=== PATIENT | female | born 1980 | race Caucasian/White ===

== ENCOUNTER 2023-11-29 15:27 | Emergency (ER) | payer MEDICAID, SELFPAY ==
--- NOTE | ~2023-11-29 | XR_ITS ---
EXAMINATION: XR CHEST CLINICAL INFORMATION: Shortness of breath COMPARISON: None available. TECHNIQUE: Frontal view of the chest was obtained. FINDINGS: Given lordotic technique lungs are considered grossly clear. Heart size normal with normal caliber pulmonary vessels. XR/XR chest 1V IMPRESSION: No active disease.
[2023-11-29 15:29] VITALS: BP 132/105; PULSE 97; RESP 20; TEMP 36.4; O2SAT 97; BMI 45.9
--- NOTE | 2023-11-29 15:30 | ED_ITS ---
HPI - SOB/Dyspnea General Chief Complaint: Abdominal Pain Stated Complaint: Difficulty breathing Time Seen by Provider: 11/29/23 16:45 Source: patient Mode of arrival: ambulatory Limitations: no limitations History of Present Illness ED Provider: Dr. Kristie Franco HPI Narrative: Patient comes to the emergency room complaining of GERD for 7 months. Patient states that she is taking famotidine but it is not helping. Patient states the her providers [place] discontinued her omeprazole because it was interacting with her other medications. Patient denies any chest pain. Patient states that she was a bit short of breath when she came in but now it has resolved. Patient denies any significant abdominal pain. Related Data Previous Rx's ?Medication ?Instructions ?Recorded sucralfate 1 gram tablet (Carafate) 1 g PO BID #60 tabs 11/29/23 Allergies Allergy/AdvReac Type Severity Reaction Status Date / Time aspirin [ASA] Allergy Hives Verified 11/29/23 15:34 Penicillins Allergy Dizziness Verified 11/29/23 15:34 Review of Systems 2 Review of Systems: Constitutional : No Weight loss, No Fever, No Chills, No Night Sweats, No Fatigue, No Malaise ENT/Mouth : No Hearing loss, No Ear Pain, No Nasal Congestion, No Sinus Pain, No Hoarseness, No sore throat, No Rhinorrhea, No Swallowing Difficulty Eyes: No Eye Pain, No Swelling, No Redness, No Foreign Body, No Discharge, No Vision Changes Cardiovascular : No Chest Pain, No SOB, No Dyspnea on Exertion, No Orthopnea, No Edema, No Palpitations Respiratory : No Cough, No Sputum, No Wheezing, No Smoke Exposure, No Dyspnea Gastrointestinal : Complaining of GERD, No Nausea, No Vomiting, No Diarrhea, No Constipation, No abdominal Pain, No Hematochezia, No Melena Genitourinary : no irregular bleeding, No Dysuria, No Urinary Frequency, No Hematuria, No Urinary Incontinence, No Urgency, No Flank Pain, No Urinary Flow Changes, No Hesitancy Musculoskeletal : No joint pain, No Myalgias, No Joint Swelling Skin : No Skin Lesions, No rash Neuro : No Weakness, No Numbness, No Paresthesias, No Loss of Consciousness, No Dizziness, No Headache Psych : No Anxiety/Panic, No Depression, No SI/HI/AH/VH, No Social Issues, Heme/Lymph: No Bruising, No Bleeding,No Lymphadenopathy Endocrine : No Polyuria, No Polydipsia, No Temperature Intolerance [facility] Past Medical History Medical History Asthma CVA (cerebral vascular accident) GERD (gastroesophageal reflux disease) Social History Social History Smoked in Last 30 Days: Yes Use of substances other than those prescribed or required for medical reasons: No Advance Directives: No Advance Directives Information Provided: No Do you have a plan to hurt others: No Plan Patient : No Physical Exam 2 Vital Signs: Vital Signs: Last Vital Signs Temp 98.4 F 11/29/23 16:17 Pulse 84 11/29/23 16:17 Resp 18 11/29/23 16:17 BP 135/71 11/29/23 16:17 Pulse Ox 96 11/29/23 16:17 O2 Del Method Room Air 11/29/23 16:17 BMI result Body Mass Index 45.9 Const: Other: Appearance: Alert. Oriented X3. No acute distress. Eyes: Pupils equal, round and reactive to light. ENT: Pharynx normal. Neck: Normal inspection. Neck supple. No lymph nodes noted. No crepitus CVS: Normal heart rate and rhythm. Pulses normal. Normal S1 and S2 Respiratory: No respiratory distress. Breath sounds normal. No Wheezing. No rales Abdomen: Soft and nontender. No rigidity. No distention. Skin: Skin warm and dry. Normal skin color. Normal skin turgor. Extremities: No lower extremity edema. No Lacerations. No Rash Neuro: Oriented X 3. No motor deficit. No sensory deficit. Moving all extremities. No slurred speech. CN 2 through 12 grossly intact Psych: calm, cooperative, normal affect Course Course Course Narrative: This is a Rapid Medical Exam performed in triage by Caroline Olvera PA-C. Full HPI, ROS and PE to be performed by primary ED provider. 43 year-old F w/ PMHx CVA on Plavix, Anxiety, GERD, Asthma, sleep apnea, presenting to the ED c/o epigastric abdominal pain, nausea, vomiting, decreased PO intake x7 mos worsening over the past few weeks. Takes Famotidine w/o relief. Also reports SOB. PE: Lungs CTA, Abdomen soft +epigastric ttp, no rebound or guarding Plan: labs, UA Medical Decision Making Medical Decision Making [facility] Narrative: -my interpretation of EKG: Normal sinus rhythm, heart rate 86, no ST segment depression or elevation, no T-wave inversion, QTC 512, no previous EKGs for comparison. -my interpretation of labs: Hematology within normal limits, chemistry, magnesium 2.0, AST and ALT slightly elevated, troponin negative, lipase normal. Serology negative for influenza RSV and COVID -my interpretation of chest x-ray, no abnormality, no infiltrates or free air under the diaphragm Patient's physical exam reassuring -discussed with the patient that overall we can change her medications but she will need a gastroenterology follow-up for chronic GERD and likely will need an upper endoscopy. -patient agrees with plan Differential Diagnosis Differential Diagnoses: The differential diagnosis associated with the presentation includes (GERD, ACS, gastritis, peptic ulcer disease) Lab Data [facility] Lab Attestation statement: I reviewed the patient's lab results. 11/29/23 15:54 11/29/23 15:53 Labs: Lab Results 11/29/23 11/29/23 Range/Units 15:53 15:54 WBC 8.7 (4.8-10.8) X10*3/uL RBC 4.50 (4.20-5.50) X10*6/uL Hgb 13.7 (12.0-16.0) g/dl Hct 41.4 (37.0-47.0) % MCV 92.0 (80.0-98.0) fL MCH 30.4 (27.0-33.0) pg MCHC 33.1 (31.0-35.0) g/dl RDW 12.5 (11.0-16.0) % Plt Count 203 (160-400) X10*3/uL MPV 9.4 (9.4-12.3) fL Immature Gran % (Auto) 0.6 H (0.0-0.4) % Neut % (Auto) 58.9 (45-73) % Lymph % (Auto) 32.6 (20-40) % Ware % (Auto) 6.4 (2-11) % Eos % (Auto) 1.0 (0-4) % Baso % (Auto) 0.5 (0-2) % Lymph # (Auto) 2.8 (1.2-4.9) X10*3/uL Ware # (Auto) 0.6 (0.1-1.2) X10*3/uL Eos # (Auto) 0.1 (0.0-0.4) X10*3/uL Baso # (Auto) 0.0 (0.0-0.2) X10*3/uL Abs Immat Gran (auto) 0.05 H (0.00-0.03) X10*3/uL Absolute Neuts (auto) 5.1 (2.0-8.3) x10*3/uL Absolute Nucleated RBC 0.000 (0.0-0.012) X10*3/uL Nucleated RBC % (auto) 0.0 (0.0-0.2) /100WBC Sodium 137 (135-145) mmol/L Potassium 4.6 (3.3-5.1) mmol/L Chloride 106 (96-108) mmol/L Carbon Dioxide 17 L (22-29) mmol/L Anion Gap 19 (12-20) BUN 5 L (9-16) mg/dL Creatinine 0.82 (0.5-1.4) mg/dL Estim Creat Clear Calc 100.6 Estimated GFR > 60 Random Glucose 93 (60-115) mg/dL Calcium 9.6 (8.4-10.2) mg/dL Magnesium 2.0 (1.6-2.6) mg/dL Total Bilirubin 0.4 (0.0-1.0) mg/dL Direct Bilirubin 0.1 (0.0-0.5) mg/dL AST 68 H (5-31) U/L ALT 65 H (0-31) U/L Alkaline Phosphatase 98 (39-117) U/L Troponin I High Sens < 2.7 (<3.5-17.0) ng/L Total Protein 8.3 H (6.5-8.0) g/dL Albumin 3.8 (3.5-5.0) g/dL Lipase 16 (8-78) U/L Influenza Type A (PCR) NEGATIVE (Negative) Influenza Type B (PCR) NEGATIVE (Negative) RSV RNA Qual (PCR) NEGATIVE (Negative) SARS-CoV-2 RNA (RT-PCR) NEGATIVE (Negative) Independent Interpretation I performed an independent interpretation of an: EKG and Plain X-Ray Radiology Impression Discussion of test interpretation with radiology: I have reviewed the radiologist's reading. Radiologist Impression: Given lordotic technique lungs are considered grossly clear. Heart size normal with normal caliber pulmonary vessels. XR/XR chest 1V IMPRESSION: No active disease. Discharge Plan Discharge Clinical Impression: Chronic GERD Patient Disposition: Home, Self-Care Instructions: Diet for Stomach Ulcers and Gastritis (ED), Gastroesophageal Reflux Disease (ED) Additional Instructions: Please follow-up with your primary care physician tomorrow. If you have any worsening or new symptoms, please return to the emergency room or call 911 Prescriptions: New sucralfate [Carafate] 1 gram tablet 1 g PO BID Qty: 60 1RF Referrals: Sarah Zuniga MD [Physician] - 12/06/23 Print Language: Puerto Rican
--- NOTE | 2023-11-29 15:36 | ECG_ITS ---
Test Reason : abd pain Blood Pressure : / mmHG Vent. Rate : 086 BPM Atrial Rate : 086 BPM P-R Int : 154 ms QRS Dur : 082 ms QT Int : 428 ms P-R-T Axes : 057 052 030 degrees QTc Int : 512 ms Normal sinus rhythm Nonspecific T wave abnormality Prolonged QT Abnormal ECG No previous ECGs available Referred By: Craoline Olvera Electronically Signed By:LISSY DAVIDSON
[2023-11-29 15:57] LABS: MANUAL DIFF FLAG NO
[2023-11-29 16:00] LABS: Basophils Percent Auto 0.5 % (0-2); Eosinophils Absolute Auto 0.1 X10*3/uL (0.0-0.4); Hematocrit 41.4 % (37.0-47.0); Hemoglobin 13.7 g/dl (12.0-16.0); Imm Gran Abs Auto 0.05 X10*3/uL (0.00-0.03); Imm Gran Pct Auto 0.6 % (0.0-0.4); Lymphocytes Absolute Auto 2.8 X10*3/uL (1.2-4.9); Lymphocytes Percent Auto 32.6 % (20-40); Mean Corpuscular HGB Conc 33.1 g/dl (31.0-35.0); Mean Corpuscular Hemoglobin 30.4 pg (27.0-33.0); Mean Platelet Volume 9.4 fL (9.4-12.3); Monocytes Absolute Auto 0.6 X10*3/uL (0.1-1.2); Monocytes Percent Auto 6.4 % (2-11); Neutrophils Absolute Auto 5.1 x10*3/uL (2.0-8.3); Neutrophils Percent Auto 58.9 % (45-73); Platelet Count 203 X10*3/uL (160-400); Red Cell Distribution Width 12.5 % (11.0-16.0); White Blood Count 8.7 X10*3/uL (4.8-10.8)
[2023-11-29 16:17] VITALS: BP 135/71; PULSE 84; RESP 18; TEMP 36.9; O2SAT 96
[2023-11-29 16:17] LABS: Alanine Aminotransferase 65 U/L (0-31); Albumin Level 3.8 g/dL (3.5-5.0); Alkaline Phosphatase 98 U/L (39-117); Anion Gap 19 (12-20); Aspartate Amino Transferase 68 U/L (5-31); Bilirubin Direct 0.1 mg/dL (0.0-0.5); Bilirubin Total 0.4 mg/dL (0.0-1.0); Blood Urea Nitrogen 5 mg/dL (9-16); Calcium 9.6 mg/dL (8.4-10.2); Carbon Dioxide 17 mmol/L (22-29); Chloride 106 mmol/L (96-108); Creatinine Clr Calc Pharmacy 100.6; Estimated Glomerular Filt Rate > 60; Glucose Random 93 mg/dL (60-115); Lipase 16 U/L (8-78); Potassium 4.6 mmol/L (3.3-5.1); Sodium 137 mmol/L (135-145); Total Protein 8.3 g/dL (6.5-8.0)
[2023-11-29 16:31] LABS: Troponin-I High Sensitivity < 2.7 ng/L (<3.5-17.0)
[2023-11-29 16:43] LABS: Influenza A PCR NEGATIVE (Negative); Influenza B PCR NEGATIVE (Negative); Resp Syncy Virus RNA Qual PCR NEGATIVE (Negative); SARS COV2 PCR INHOUSE NEGATIVE (Negative)
[2023-11-29 17:18] VITALS: BP 135/71; PULSE 84; RESP 18; TEMP 36.9; O2SAT 96
== END 2023-11-29 17:19 | disposition home or self-care (01) ==
PROVIDERS: Physician Assistant; Emergency Provider Emergency Medicine
DX: K21.9 Gastro-esophageal reflux disease without esophagitis (principal); Z03.818 Encounter for observation for suspected exposure to other biological agents ruled out; R06.02 Shortness of breath; J45.909 Unspecified asthma, uncomplicated; Z86.73 Personal history of transient ischemic attack (TIA), and cerebral infarction without residual deficits; Z79.899 Other long term (current) drug therapy
CPT/HCPCS: 0241U; 36415; 71045; 80048; 80076; 83690; 83735; 84484; 85025; 93005; 99284

== ENCOUNTER → 2023-11-29 15:36 | Outpatient (BNV) | payer MEDICAID, SELFPAY | PROVIDERS: Emergency Provider Emergency Medicine; Visit Provider Internal Medicine | DX: R94.31 Abnormal electrocardiogram [ECG] [EKG] (principal) | CPT/HCPCS: 93010 ==

== ENCOUNTER 2024-05-25 18:38 | Inpatient (IN) | payer OTHER, SELFPAY ==
--- NOTE | ~2024-05-25 | CT_ITS ---
EXAMINATION: CT CHEST WITHOUT IV CONTRAST INDICATION: hypoxia COMPARISON: Comparison is made with the prior examination dated 05/26/2024. TECHNIQUE: Helical CT scan of the chest was performed without intravenous contrast. Coronal and sagittal reformatted images were generated and reviewed. This CT exam was performed with one or more of the following dose reduction techniques: automated exposure control, adjustment of the mA and/or kV according to patient size, use of iterative reconstruction technique. DLP: 231 mGy-cm CHEST: THYROID: The thyroid is unremarkable. LUNGS:There has been marked improvement in previously seen nodular airspace opacities in both lungs with near complete clearing in the right middle and left lower lobes. A few residual opacities remain in the right lower lobe. There is linear scarring in the right upper and middle lobes without change. MEDIASTINUM: Again seen is an 11 mm right paratracheal lymph node. RICKY: Evaluation of the hilar regions is limited by lack of intravenous contrast material. CARDIOVASCULATURE: The heart is normal in size. There is no pericardial effusion. The thoracic aorta is normal in caliber. DEGREE OF CORONARY CALCIFICATION: none PLEURA: There is no pleural effusion. No pneumothorax. MAIN AIRWAYS: There is mild bronchial wall thickening which has improved since the prior study. AXILLA: There is no axillary lymphadenopathy. BONES AND SOFT TISSUES: There is degenerative disc disease of the spine. UPPER ABDOMEN: The visualized portions of the liver, spleen, and adrenals have an unremarkable appearance. CT/CT chest wo IV con IMPRESSION: Marked improvement in previously seen bilateral nodular airspace opacities, with scattered residual opacities remaining in the right lower lobe. Improvement in previously seen bronchial wall thickening. Electronically signed by: Slim Manzanares MD 05/29/2024 08:53 [facility]
--- NOTE | ~2024-05-25 | CT_ITS ---
CLINICAL HISTORY: ? vascular disease CT HEAD WITHOUT CONTRAST. CT ANGIOGRAPHY HEAD AND NECK WITH CONTRAST. 3D POSTPROCESSING. Comparison: MR - MR HEAD/BRAIN WO CON - 05/26/24 09:[address]/SR - CT HEAD/BRAIN WO IV CON - 05/25/24 23:21 EST Findings: HEAD CT: No intra-axial mass, midline shift, hydrocephalus, or acute hemorrhage. No significant atrophy-like change. Mild white matter disease. The visualized paranasal sinuses and mastoid air cells are normal. The orbits are within normal limits. No skull fracture. HEAD AND NECK CTA: Aortic arch and cervical great vessels are patent. Intracranial arteries are patent. No aneurysm, dissection, or occlusion. There is persistent origin of the right TAXI CAB DRIVER, a normal variant. Hypoplastic A1 segment of the right KEESHA, a normal variant. No abnormal intracranial enhancement. Grossly patent dural venous sinuses. The visualized thyroid gland is unremarkable. No cervical mass or fluid collection. Lung apices clear. No acute fracture. IMPRESSION: 1. No acute intracranial process or enhancing intracranial mass lesion. 2. Patent CTA head and neck. No large vessel occlusion or flow-limiting stenosis. This document has been electronically signed by: Zeynep Hastings DO on 05/27/2024 13:27:06
--- NOTE | ~2024-05-25 | CT_ITS ---
CLINICAL HISTORY: ams CT head without contrast Comparison: None Findings: No intra-axial mass, midline shift, hydrocephalus, or acute hemorrhage. There is diminished density in the bilateral occipital cortex and white matter. There is no sinus or mastoid fluid. The orbits are within normal limits. No skull fracture. There is evidence of right-sided otitis with fluid seen adjacent to the ossicles. IMPRESSION: There is diminished density in the bilateral occipital cortex and white matter. consider posterior reversible encephalopathy syndrome. Please correlate with MRI. This document has been electronically signed by: Bruno Anderson MD on 05/26/2024 00:10:23
--- NOTE | ~2024-05-25 | XR_ITS ---
EXAMINATION: XR CHEST 1 VIEW HISTORY: re-evaluate PNA COMPARISON: Comparison is made with the prior examination dated 11/29/2023. Correlation is also made with a chest CT dated 05/26/2024. FINDINGS: A single AP portable view of the chest performed at 10:15 AM is submitted. There are low lung volumes. Examination is also limited by lordotic positioning. There is pulmonary vascular prominence which may be technical in nature. No focal airspace opacities are identified. However, please note that the tiny nodular airspace opacities noted on CT are likely below the resolution of plain film. The heart is normal in size. The bones are intact. XR/XR chest 1V IMPRESSION: No acute cardiopulmonary abnormality. Please note that the tiny nodular airspace opacities noted on CT are likely below the resolution of plain film. Electronically signed by: Slim Manzanares MD 05/28/2024 10:34 AM [facility]
--- NOTE | ~2024-05-25 | MR_ITS ---
CLINICAL HISTORY: AMS,?PRES MR Brain without gadolinium Comparison: None Findings: There are no changes to suggest posterior reversible encephalopathy syndrome (PRES). Findings noted on CT are presumably artifactual as there is no occipital lobe pathology noted. There are mostly right-sided periventricular and subcortical white matter hyperintensities likely the result of microvascular ischemia. No midline shift. No hydrocephalus. Vascular flow voids are intact. Orbital contents are unremarkable. The sinuses and mastoid air cells are clear. No focal bone lesion. There are no classic findings of hyperammonemia. IMPRESSION: 1. No acute abnormalities are noted and no changes suggestive of PRES or hyperammonemic encephalopathy. The findings on head CT were presumably artifactual. 2. There are mostly right-sided periventricular and subcortical white matter hyperintensities likely the result of microvascular ischemia. This document has been electronically signed by: Bruno Anderson MD on 05/26/2024 10:25:41
--- NOTE | ~2024-05-25 | CT_ITS ---
CLINICAL HISTORY: re-eval from cxr; bronchiolitis CT CHEST WITHOUT CONTRAST Comparison: CR/SR - XR CHEST 1V - 11/29/23 15:58 EDT Findings: The heart size is normal. The thoracic aorta is normal caliber. Several nonenlarged and likely reactive mediastinal lymph nodes. Numerous small nodular airspace opacities are seen throughout the right lung ranging in size from 4-13 mm. There are several similar findings in the left lower lobe. There is mild bronchial wall thickening. Trachea and major bronchi are patent. No pleural effusion or pneumothorax. Tiny calcified granuloma in the left upper lobe. The visualized upper abdomen is unremarkable. The bones are intact. IMPRESSION: 1. Multiple small nodular airspace opacities throughout the right lung and in the left lower lobe suggestive of inflammatory or infectious process. 2. Mild central bronchial wall thickening. 3. No segmental or lobar pneumonia. This document has been electronically signed by: Zeynep Hastings DO on 05/26/2024 13:38:14
--- NOTE | ~2024-05-25 | CT_ITS ---
CLINICAL HISTORY: Elevated ammonia level, hepatitis-C CT abdomen and pelvis with contrast Comparison: CT - CT ABDOMEN PELVIS W IV CON - 05/25/24 23:27 EST Findings: Multiple tree-in-bud nodules are seen in the right lower lobe in addition to several larger nodules with a halo. The gallbladder and solid organs are within normal limits. No renal stones. No bowel obstruction, pneumoperitoneum, or pneumatosis. Pelvic contents unremarkable. Normal appendix. The bones are intact. IMPRESSION: 1. No acute intra-abdominal process. 2. Tree-in-bud opacities in the right lower lobe compatible with bronchiolitis. Several larger nodules with a halo sign are present also likely infectious/inflammatory. The sign was classically described for aspergillosis but can occur due to other infectious etiologies This document has been electronically signed by: Bruno Anderson MD on 05/26/2024 00:36:57
--- NOTE | 2024-05-25 18:56 | ECG_ITS ---
Test Reason : WEAKNESS Blood Pressure : */* mmHG Vent. Rate : 74 BPM Atrial Rate : 74 BPM P-R Int : 170 ms QRS Dur : 82 ms QT Int : 384 ms P-R-T Axes : 41 61 38 degrees QTcB Int : 426 ms Normal sinus rhythm Nonspecific T wave abnormality Abnormal ECG When compared with ECG of 29-Nov-2023 15:36, Nonspecific T wave abnormality no longer evident in Lateral leads QT has shortened Referred By: Anne Arellano Electronically Signed By: Garry Padilla
[2024-05-25 19:06] VITALS: BP 142/82; PULSE 78; O2SAT 92
--- NOTE | 2024-05-25 19:18 | ED.GENADULT ---
HPI - General Adult General Chief complaint: Altered Mental Status Stated complaint: increased lethargy, edema hands & Legs, face droop Time Seen by Provider: 05/25/24 19:13 Source: patient Mode of arrival: EMS Limitations: no limitations History of Present Illness ED Provider: HPI narrative: Patient's history of major depression disorder history of substance came from inpatient psych facility for increased lethargy patient denied using of any drugs on methadone just feels sleepy all the time and shaky no change in medication patient does have history hepatitis-C not treated, no fever no chills no urinary symptoms no cough 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 Related Data Previous Rx's ?Medication ?Instructions ?Recorded sucralfate 1 gram tablet (Carafate) 1 g PO BID #60 tabs 11/29/23 Allergies Allergy/AdvReac Type Severity Reaction Status Date / Time aspirin [ASA] Allergy Intermediate Hives Verified 05/25/24 22:28 Penicillins Allergy Dizziness Verified 11/29/23 15:34 Review of Systems Review of Systems: Yes all other systems are reviewed and are negative [facility] Past Medical History Medical History Asthma CVA (cerebral vascular accident) GERD (gastroesophageal reflux disease) Social History Social History Advance Directives: No Advance Directives Information Provided: No Do you have a plan to hurt others: No Plan Physical Exam ED Vital Signs: Vital Signs - 24 hr 05/25/24 19:51 05/25/24 22:00 05/26/24 00:00 Temperature 97.9 F 97.6 F 97.6 F Pulse Rate 80 82 88 Respiratory Rate 18 15 Blood Pressure 150/78 H 117/95 H 121/87 Pulse Oximetry 92 95 94 Oxygen Delivery Method Nasal Cannula Nasal Cannula Nasal Cannula Oxygen Flow Rate 2 3 2 BMI result Body Mass Index 45.3 Appearance: Alert. Oriented X3. No acute distress. Sleepy arousable Eyes: Legally blind right eye ENT: Pharynx normal. Oral Mucosa moist Neck: Normal inspection. Neck supple. CVS: Normal heart rate and rhythm. Pulses normal. Respiratory: No respiratory distress. Equal air entry bilateral, no wheezing/rales/rhonchi Abdomen: Soft and nontender. Bowel sounds are present, no mass palpable, no CVA tenderness Skin: Skin warm and dry. Normal skin color. Normal skin turgor. Extremities: 2+ lower extremity edema. No calf tenderness hepatic flaps++ Neuro: Oriented X 3. No motor deficit. No sensory deficit.No cerebellar signs , cranial nerves II-XII intact Medications Administered Discontinued Medications Generic Name Dose Route Start Last Admin Trade Name Freq PRN Reason Stop Dose Admin Sodium Chloride 1,000 mls @ 999 mls/hr 05/25/24 21:16 05/25/24 23:54 Ns IV 05/25/24 22:16 999 mls/hr .Q1H1M ONE Administration Iohexol 100 ml 05/25/24 23:42 05/25/24 23:42 Iohexol 350 Mg/Ml 100 Ml Infus..Btl IV 05/25/24 23:43 100 ml ONCE ONE Administration Lactulose 30 gm 05/25/24 22:43 05/25/24 23:53 Lactulose 20 Gm/30 Ml Solution PO 05/25/24 22:44 30 gm ONCE ONE Administration Medical Decision Making Medical Decision Making [facility] Narrative: Patient with increased lethargy somnolence workup showed elevated ammonia level likely from methadone use also patient has untreated hepatitis-C liver enzymes are slightly elevated will admit patient for hepatic encephalopathy CT scan showed diminished density in bilateral occipital cortex>>> posterior reversible encephalopathy syndrome also showed tree-in-bud opacity in right lower lobe patient also does have cough for last 1 week lactic acid level is normal were started IV antibiotics admit Differential Diagnosis Differential Diagnoses: The differential diagnosis associated with the presentation includes Admission/Observation Consideration of admission/observation: Escalation of care including admission/observation considered Metabolic encephalopathy/hyperammonemia/posterior reversible encephalopathy syndrome/substance abuse Consult Healthcare Provider Management of the patient was discussed with: Hospitalist Lab Data [facility] Lab Attestation statement: I reviewed the patient's lab results. 05/25/24 21:15 05/25/24 19:58 Labs: Lab Results 05/25/24 05/25/24 05/25/24 Range/Units 19:58 21:15 21:21 WBC 12.7 H (4.8-10.8) X10*3/uL RBC 3.98 L (4.20-5.50) X10*6/uL Hgb 11.8 L (12.0-16.0) g/dl Hct 36.9 L (37.0-47.0) % MCV 92.7 (80.0-98.0) fL MCH 29.6 (27.0-33.0) pg MCHC 32.0 (31.0-35.0) g/dl RDW 13.6 (11.0-16.0) % Plt Count 162 (160-400) X10*3/uL MPV 9.6 (9.4-12.3) fL Immature Gran % (Auto) 0.3 (0.0-0.4) % Neut % (Auto) 79.2 H (45-73) % Lymph % (Auto) 15.5 L (20-40) % Sutter % (Auto) 4.3 (2-11) % Eos % (Auto) 0.5 (0-4) % Baso % (Auto) 0.2 (0-2) % Lymph # (Auto) 2.0 (1.2-4.9) X10*3/uL Sutter # (Auto) 0.6 (0.1-1.2) X10*3/uL Eos # (Auto) 0.1 (0.0-0.4) X10*3/uL Baso # (Auto) 0.0 (0.0-0.2) X10*3/uL Abs Immat Gran (auto) 0.04 H (0.00-0.03) X10*3/uL Absolute Neuts (auto) 10.0 H (2.0-8.3) x10*3/uL Absolute Nucleated RBC 0.000 (0.0-0.012) X10*3/uL Nucleated RBC % (auto) 0.0 (0.0-0.2) /100WBC VBG pH 7.37 (7.32-7.43) VBG pCO2 59 mmHg VBG pO2 63 mmHg VBG HCO3 34 H (22-26) mmol/L VBG O2 Saturation 92.0 % VBG Base Excess 7.6 mmol/L Sodium 141 (135-145) mmol/L Potassium 4.7 (3.3-5.1) mmol/L Chloride 106 (96-108) mmol/L Carbon Dioxide 30 H (22-29) mmol/L Anion Gap 10 L (12-20) BUN 9 (9-16) mg/dL Creatinine 0.71 (0.5-1.4) mg/dL Estim Creat Clear Calc TNP Estimated GFR > 60 Random Glucose 82 (60-115) mg/dL Lactic Acid (0.5-2.0) mmol/L Calcium 8.7 D (8.4-10.2) mg/dL Magnesium 2.1 (1.6-2.6) mg/dL Total Bilirubin 0.5 (0.0-1.0) mg/dL AST 49 H (5-31) U/L ALT 63 H (0-31) U/L Alkaline Phosphatase 102 (39-117) U/L Ammonia 83 H (13-55) umol/L B-Natriuretic Peptide 15 (<100) pg/mL Total Protein 8.1 H (6.5-8.0) g/dL Albumin 3.8 (3.5-5.0) g/dL TSH 1.08 (0.32-4.0) uIU/mL Urine Color Urine Appearance Urine pH (5.0-9.0) Ur Specific [place] (1.005-1.025) Urine Protein (Neg-Trace) mg/dL Urine Glucose (UA) (Negative) mg/dL Urine Ketones (Negative) mg/dL Urine Blood (Negative) Urine Nitrite (Negative) Ur Leukocyte Esterase (Negative) Urine Test (NEGATIVE) Urine Opiates Screen (Not Detect) Ur Buprenorphine Scrn (Not Detect) ng/mL Ur Oxycodone Screen (Not Detect) ng/mL Urine Methadone Screen (Not Detect) ng/mL Urine Fentanyl Screen (Not Detect) Ur Barbiturates Screen (Not Detect) Ur Phencyclidine Scrn (Not Detect) Ur Amphetamines Screen (Not Detect) U Benzodiazepines Scrn (Not Detect) Urine Cocaine Screen (Not Detect) U Marijuana (THC) Screen (Not Detect) Influenza Type A (PCR) NEGATIVE (Negative) Influenza Type B (PCR) NEGATIVE (Negative) RSV RNA Qual (PCR) NEGATIVE (Negative) SARS-CoV-2 RNA (RT-PCR) NEGATIVE (Negative) 05/25/24 Range/Units 21:35 WBC (4.8-10.8) X10*3/uL RBC (4.20-5.50) X10*6/uL Hgb (12.0-16.0) g/dl Hct (37.0-47.0) % MCV (80.0-98.0) fL MCH (27.0-33.0) pg MCHC (31.0-35.0) g/dl RDW (11.0-16.0) % Plt Count (160-400) X10*3/uL MPV (9.4-12.3) fL Immature Gran % (Auto) (0.0-0.4) % Neut % (Auto) (45-73) % Lymph % (Auto) (20-40) % Sutter % (Auto) (2-11) % Eos % (Auto) (0-4) % Baso % (Auto) (0-2) % Lymph # (Auto) (1.2-4.9) X10*3/uL Sutter # (Auto) (0.1-1.2) X10*3/uL Eos # (Auto) (0.0-0.4) X10*3/uL Baso # (Auto) (0.0-0.2) X10*3/uL Abs Immat Gran (auto) (0.00-0.03) X10*3/uL Absolute Neuts (auto) (2.0-8.3) x10*3/uL Absolute Nucleated RBC (0.0-0.012) X10*3/uL Nucleated RBC % (auto) (0.0-0.2) /100WBC VBG pH (7.32-7.43) VBG pCO2 mmHg VBG pO2 mmHg VBG HCO3 (22-26) mmol/L VBG O2 Saturation % VBG Base Excess mmol/L Sodium (135-145) mmol/L Potassium (3.3-5.1) mmol/L Chloride (96-108) mmol/L Carbon Dioxide (22-29) mmol/L Anion Gap (12-20) BUN (9-16) mg/dL Creatinine (0.5-1.4) mg/dL Estim Creat Clear Calc Estimated GFR Random Glucose (60-115) mg/dL Lactic Acid 0.9 (0.5-2.0) mmol/L Calcium (8.4-10.2) mg/dL Magnesium (1.6-2.6) mg/dL Total Bilirubin (0.0-1.0) mg/dL AST (5-31) U/L ALT (0-31) U/L Alkaline Phosphatase (39-117) U/L Ammonia (13-55) umol/L B-Natriuretic Peptide (<100) pg/mL Total Protein (6.5-8.0) g/dL Albumin (3.5-5.0) g/dL TSH (0.32-4.0) uIU/mL Urine Color Yellow Urine Appearance Clear Urine pH 7.0 (5.0-9.0) Ur Specific [place] 1.020 (1.005-1.025) Urine Protein Negative (Neg-Trace) mg/dL Urine Glucose (UA) Negative (Negative) mg/dL Urine Ketones Trace (Negative) mg/dL Urine Blood Negative (Negative) Urine Nitrite Negative (Negative) Ur Leukocyte Esterase Negative (Negative) Urine Test NEGATIVE (NEGATIVE) Urine Opiates Screen Not Detected (Not Detect) Ur Buprenorphine Scrn Not Detected (Not Detect) ng/mL Ur Oxycodone Screen Not Detected (Not Detect) ng/mL Urine Methadone Screen Positive H (Not Detect) ng/mL Urine Fentanyl Screen Not Detected (Not Detect) Ur Barbiturates Screen Not Detected (Not Detect) Ur Phencyclidine Scrn Not Detected (Not Detect) Ur Amphetamines Screen Not Detected (Not Detect) U Benzodiazepines Scrn Not Detected (Not Detect) Urine Cocaine Screen Not Detected (Not Detect) U Marijuana (THC) Screen Not Detected (Not Detect) Influenza Type A (PCR) (Negative) Influenza Type B (PCR) (Negative) RSV RNA Qual (PCR) (Negative) SARS-CoV-2 RNA (RT-PCR) (Negative) Independent Interpretation I performed an independent interpretation of an: CT Scan Radiology Impression Discussion of test interpretation with radiology: I have reviewed the radiologist's reading. Radiologist Impression: CLINICAL HISTORY: ams CT head without contrast Comparison: None Findings: No intra-axial mass, midline shift, hydrocephalus, or acute hemorrhage. There is diminished density in the bilateral occipital cortex and white matter. There is no sinus or mastoid fluid. The orbits are within normal limits. No skull fracture. There is evidence of right-sided otitis with fluid seen adjacent to the ossicles. IMPRESSION: There is diminished density in the bilateral occipital cortex and white matter. consider posterior reversible encephalopathy syndrome. Please correlate with MRI. This document has been electronically signed by: Bruno Anderson MD on 05/26/2024 00:10:23 MPRESSION: 1. No acute intra-abdominal process. 2. Tree-in-bud opacities in the right lower lobe compatible with bronchiolitis. Several larger nodules with a halo sign are present also likely infectious/inflammatory. The sign was classically described for aspergillosis but can occur due to other infectious etiologies This document has been electronically signed by: Bruno Anderson MD on 05/26/2024 00:36:[address] [address] XRay Report Signed Patient: Alicia Ambriz MR#: [id number] : 1980 Acct:[id number] Age/Sex: 43 / F ADM Date: 11/29/23 Loc: .ED Attending Dr: Ordering Physician: Caroline Olvera Date of Service: 11/29/23 Procedure(s): XR chest 1V Accession Number(s): [id number] cc: Physician,None ; Caroline Olvera~ EXAMINATION: XR CHEST CLINICAL INFORMATION: Shortness of breath COMPARISON: None available. TECHNIQUE: Frontal view of the chest was obtained. FINDINGS: Given lordotic technique lungs are considered grossly clear. Heart size normal with normal caliber pulmonary vessels. XR/XR chest 1V IMPRESSION: No active disease. Discharge Plan Discharge Clinical Impression: Acute metabolic encephalopathy, Pneumonia, Hyperammonemia Patient Disposition: Admitted As Inpatient Print Language: Maldivian
[2024-05-25 19:51] VITALS: BP 150/78; PULSE 80; RESP 18; TEMP 36.6; O2SAT 92
[2024-05-25 20:00] VITALS: BMI 45.3
[2024-05-25 20:16] LABS: Alanine Aminotransferase 63 U/L (0-31); Albumin Level 3.8 g/dL (3.5-5.0); Alkaline Phosphatase 102 U/L (39-117); Anion Gap 10 (12-20); Aspartate Amino Transferase 49 U/L (5-31); Bilirubin Total 0.5 mg/dL (0.0-1.0); Blood Urea Nitrogen 9 mg/dL (9-16); Calcium 8.7 mg/dL (8.4-10.2); Carbon Dioxide 30 mmol/L (22-29); Chloride 106 mmol/L (96-108); Estimated Glomerular Filt Rate > 60; Glucose Random 82 mg/dL (60-115); Magnesium 2.1 mg/dL (1.6-2.6); Potassium 4.7 mmol/L (3.3-5.1); Sodium 141 mmol/L (135-145); Total Protein 8.1 g/dL (6.5-8.0)
--- NOTE | 2024-05-25 20:18 | PC.NURSE ---
sleeping but arousable to verbal stimulation. ED attending made aware that staff having difficulty obtaining labs/vbg.
[2024-05-25 20:41] LABS: Influenza A PCR NEGATIVE (Negative); Influenza B PCR NEGATIVE (Negative); Resp Syncy Virus RNA Qual PCR NEGATIVE (Negative); SARS COV2 PCR INHOUSE NEGATIVE (Negative)
[2024-05-25 21:21] LABS: MANUAL DIFF FLAG NO
[2024-05-25 21:22] LABS: Basophils Percent Auto 0.2 % (0-2); Eosinophils Absolute Auto 0.1 X10*3/uL (0.0-0.4); Eosinophils Percent Auto 0.5 % (0-4); Hematocrit 36.9 % (37.0-47.0); Hemoglobin 11.8 g/dl (12.0-16.0); Imm Gran Abs Auto 0.04 X10*3/uL (0.00-0.03); Imm Gran Pct Auto 0.3 % (0.0-0.4); Lymphocytes Percent Auto 15.5 % (20-40); Mean Corpuscular Hemoglobin 29.6 pg (27.0-33.0); Mean Corpuscular Volume 92.7 fL (80.0-98.0); Mean Platelet Volume 9.6 fL (9.4-12.3); Monocytes Absolute Auto 0.6 X10*3/uL (0.1-1.2); Monocytes Percent Auto 4.3 % (2-11); Neutrophils Percent Auto 79.2 % (45-73); Platelet Count 162 X10*3/uL (160-400); Red Blood Count 3.98 X10*6/uL (4.20-5.50); Red Cell Distribution Width 13.6 % (11.0-16.0); White Blood Count 12.7 X10*3/uL (4.8-10.8)
[2024-05-25 21:25] LABS: VBG Base Excess 7.6 mmol/L; VBG HCO3 34 mmol/L (22-26); VBG pCO2 59 mmHg; VBG pH 7.37 (7.32-7.43); VBG pO2 63 mmHg
[2024-05-25 21:29] LABS: Venous Blood Gas Refer to POC result
[2024-05-25 21:44] LABS: Appearance Urine Clear; Color Urine Yellow; Glucose Urine UA Negative (Negative); Leukocyte Esterase Urine Negative (Negative); Nitrite Urine Negative (Negative); Urine Blood Negative (Negative); Urine Ketones Trace mg/dL (Negative); Urine Protein Negative (Neg-Trace)
[2024-05-25 21:54] LABS: Lactic Acid 0.9 mmol/L (0.5-2.0)
[2024-05-25 21:55] LABS: Amphetamine Screen Urine Not Detected (Not Detect); Barbiturates, Urine Not Detected (Not Detect); Benzodiazepines Screen Urine Not Detected (Not Detect); Buprenorphine Scr Not Detected (Not Detect); Cannabinoid Screen Urine Not Detected (Not Detect); Cocaine Screen Urine Not Detected (Not Detect); Fentanyl, urine Not Detected (Not Detect); Methadone Screen, Urine Positive (Not Detect); Opiate Screen Urine Not Detected (Not Detect); Oxycodone Screen Urine Not Detected (Not Detect); Phencyclidine Screen Urine Not Detected (Not Detect)
[2024-05-25 22:00] VITALS: BP 117/95; PULSE 82; TEMP 36.4; O2SAT 95
[2024-05-25 22:35] LABS: Ammonia 83 umol/L (13-55)
[2024-05-25 23:11] LABS: UPreg QC Valid YES; Urine Pregnancy NEGATIVE (NEGATIVE)
[2024-05-25 23:12] LABS: B Type Natriuretic Peptide 15 pg/mL (<100)
[2024-05-25 23:25] LABS: Thyroid Stimulating Hormone 1.08 uIU/mL (0.32-4.0)
[2024-05-25] MEDS: iohexoL 350 MG/ML 100 ML INFUS..BTL IV (23:42)
[2024-05-25] MEDS: Lactulose 20 GM/30 ML SOLUTION 30 GM PO (23:53)
[2024-05-25] MEDS: 0.9 % Sodium Chloride 1,000 ML 999 ML IV (23:54)
[2024-05-26] VITALS: BP 120/84; BP 121/87; PULSE 74; PULSE 88; RESP 15; RESP 16; TEMP 36.4; O2SAT 94
[2024-05-26] MEDS: Piperacillin Sodium/Tazobactam 3.375 GM in 0.9 % Sodium Chloride 50 ML IV (01:48)
[2024-05-26 01:55] LABS: Venous Blood Gas Refer to POC result
[2024-05-26 01:58] LABS: VBG Base Excess 10.6 mmol/L; VBG HCO3 36 mmol/L (22-26); VBG pCO2 52 mmHg; VBG pH 7.44 (7.32-7.43); VBG pO2 49 mmHg
--- NOTE | 2024-05-26 02:13 | P.HPHOSP_ITS ---
History of Present Illness Date of Service: 05/26/24 Chief Complaint: Altered mentation This is a 43-year-old female with pertinent history of hep C untreated, alcohol use disorder, opioid use disorder, mood disorder who was sent to the emergency department for evaluation of altered mentation. Patient was sent from [facility] for lethargy and drowsiness. Patient is at [facility] for suicidal ideation. Patient awakens to verbal stimulus but falls back asleep mid conversation. States she is sleeping a lot on the day of presentation and hence she was sent to the hospital. Patient does endorse productive cough that has been ongoing for a while. Also complains of headache. No history of high blood pressure. States she has had couple of seizures previously but they were due to alcohol withdrawal. Does not know if she has a history of cirrhosis. Is legally blind in the right eye. Unclear if vision changes in the left eye. Unable to obtain review of systems. Denies recent alcohol use or illicit drug use In the emergency department, imaging with right-sided bronchiolitis. CT brain with ?PRES. Also found to have leukocytosis and requiring 2 L supplemental oxygen. Was given IV fluids and empiric IV Zosyn in the ER. Ammonia found to be elevated and patient was given lactulose. Review of Systems 2 Review of Systems: Yes Unobtainable due to mental status PMFSH Medical History Asthma CVA (cerebral vascular accident) GERD (gastroesophageal reflux disease) Pertinent family history: No family history of early CAD Social History Advance Directives: No Advance Directives Information Provided: No Do you have a plan to hurt others: No Plan Meds Allergies Allergy/AdvReac Type Severity Reaction Status Date / Time aspirin [ASA] Allergy Intermediate Hives Verified 05/25/24 22:28 Penicillins Allergy Dizziness Verified 11/29/23 15:34 Physical Exam 2 Vital Signs and Narrative: Vital Signs: Last Vital Signs Temp 97.6 F 05/26/24 00:00 Pulse 88 05/26/24 00:00 Resp 15 05/26/24 00:00 BP 121/87 05/26/24 00:00 Pulse Ox 94 05/26/24 00:00 O2 Del Method Nasal Cannula 05/26/24 00:00 O2 Flow Rate 2 05/26/24 00:00 BMI result Body Mass Index 45.3 Middle-aged female lying in bed in no distress Neck supple, no JVD Regular rate and rhythm, S1-S2 heard Right-sided crackles no wheezing Abdomen soft nontender, no guarding, no rigidity Patient awakens to verbal stimulus but falls back asleep mid conversation, oriented x3 when awake Psych: Lethargic and drowsy No pedal edema Results Labs 05/25/24 21:15 05/25/24 19:58 Labs: Laboratory Results - last 24 hr 05/25/24 05/25/24 05/25/24 19:58 21:15 21:21 MCV 92.7 MCH 29.6 MCHC 32.0 RDW 13.6 Plt Count 162 MPV 9.6 Immature Gran % (Auto) 0.3 Neut % (Auto) 79.2 H Lymph % (Auto) 15.5 L [place] % (Auto) 4.3 Eos % (Auto) 0.5 Baso % (Auto) 0.2 Lymph # (Auto) 2.0 [place] # (Auto) 0.6 Eos # (Auto) 0.1 Baso # (Auto) 0.0 Abs Immat Gran (auto) 0.04 H Absolute Neuts (auto) 10.0 H Absolute Nucleated RBC 0.000 Nucleated RBC % (auto) 0.0 VBG pH 7.37 VBG pCO2 59 VBG pO2 63 VBG HCO3 34 H VBG O2 Saturation 92.0 VBG Base Excess 7.6 Anion Gap 10 L Estim Creat Clear Calc TNP Estimated GFR > 60 Random Glucose 82 Lactic Acid Calcium 8.7 D Magnesium 2.1 Total Bilirubin 0.5 AST 49 H ALT 63 H Alkaline Phosphatase 102 Ammonia 83 H B-Natriuretic Peptide 15 Total Protein 8.1 H Albumin 3.8 TSH 1.08 Urine Color Urine Appearance Urine pH Ur Specific [place] Urine Protein Urine Glucose (UA) Urine Ketones Urine Blood Urine Nitrite Ur Leukocyte Esterase Urine Test Urine Opiates Screen Ur Buprenorphine Scrn Ur Oxycodone Screen Urine Methadone Screen Urine Fentanyl Screen Ur Barbiturates Screen Ur Phencyclidine Scrn Ur Amphetamines Screen U Benzodiazepines Scrn Urine Cocaine Screen U Marijuana (THC) Screen Influenza Type A (PCR) NEGATIVE Influenza Type B (PCR) NEGATIVE RSV RNA Qual (PCR) NEGATIVE SARS-CoV-2 RNA (RT-PCR) NEGATIVE 05/25/24 05/26/24 21:35 01:52 MCV MCH MCHC RDW Plt Count MPV Immature Gran % (Auto) Neut % (Auto) Lymph % (Auto) [place] % (Auto) Eos % (Auto) Baso % (Auto) Lymph # (Auto) [place] # (Auto) Eos # (Auto) Baso # (Auto) Abs Immat Gran (auto) Absolute Neuts (auto) Absolute Nucleated RBC Nucleated RBC % (auto) VBG pH 7.44 H VBG pCO2 52 VBG pO2 49 VBG HCO3 36 H VBG O2 Saturation 78.0 VBG Base Excess 10.6 Anion Gap Estim Creat Clear Calc Estimated GFR Random Glucose Lactic Acid 0.9 Calcium Magnesium Total Bilirubin AST ALT Alkaline Phosphatase Ammonia B-Natriuretic Peptide Total Protein Albumin TSH Urine Color Yellow Urine Appearance Clear Urine pH 7.0 Ur Specific [place] 1.020 Urine Protein Negative Urine Glucose (UA) Negative Urine Ketones Trace Urine Blood Negative Urine Nitrite Negative Ur Leukocyte Esterase Negative Urine Test NEGATIVE Urine Opiates Screen Not Detected Ur Buprenorphine Scrn Not Detected Ur Oxycodone Screen Not Detected Urine Methadone Screen Positive H Urine Fentanyl Screen Not Detected Ur Barbiturates Screen Not Detected Ur Phencyclidine Scrn Not Detected Ur Amphetamines Screen Not Detected U Benzodiazepines Scrn Not Detected Urine Cocaine Screen Not Detected U Marijuana (THC) Screen Not Detected Influenza Type A (PCR) Influenza Type B (PCR) RSV RNA Qual (PCR) SARS-CoV-2 RNA (RT-PCR) Assessment and Plan (1) Acute metabolic encephalopathy: Status: Acute (2) Sepsis: Status: Acute (3) Hypoxia: Status: Acute (4) Hyperammonemia: Status: Acute (5) Bronchiolitis: Status: Acute Plan This is a 43-year-old female with pertinent history of hep C untreated, alcohol use disorder, opioid use disorder, mood disorder who was sent to the emergency department for evaluation of altered mentation. #. Acute metabolic encephalopathy: In the setting of hyperammonemia, sepsis and ?PRES #. Acute hypoxemic respiratory failure and sepsis due to right-sided bronchiolitis. Multiple tree-in-bud opacities with halo sign. Obtaining procalcitonin, sputum culture, Fungitell. Consulting pulmonology, appreciate assistance. Initiating empiric IV Levaquin. Lactic acid and blood culture obtained and resuscitated with IV crystalloids. CT chest pending #. Hyperammonemia: Initiating lactulose. Monitor ammonia. No imaging evidence of cirrhosis. No renal disease, GI bleed, UTI. #. Imaging concerning for ?PRES: Blood pressure within normal limits. Seizure precautions. Ordered MRI brain. Consulted Neurology #. Mood disorder with SI: Hold mood stabilizer in the setting of lethargy. Consulted sitter. CARE team once medically stable #. Hep C, untreated: Outpatient follow-up #. Alcohol use disorder: Monitor CIWA. Initiating thiamine Med rec pending DVT prophylaxis: Mechanical Full code Admit as inpatient and will require two night minimum hospital stay for (as above), which is not possible in a lesser acute setting. Quality Stroke Does the patient have a stroke diagnosis?: No VTE Prior VTE?: No VTE Risk Level:: Medical - moderate - high VTE Device Contraindication: Treatment Not Indicated VTE Drug Contraindication: N/A - Med Ordered
[2024-05-26] MEDS: Acetaminophen 325 MG TABLET 650 MG PO (02:29)
[2024-05-26] MEDS: Enoxaparin Sodium 40 MG/0.4 ML SYRINGE SUBCUT (02:29)
[2024-05-26] MEDS: Thiamine HCL 100 MG in 0.9 % Sodium Chloride 100 ML 202 MG IV (03:28)
[2024-05-26] MEDS: levoFLOXacin/D5W 750 MG/150 ML PIGGYBACK 100 MG IV (03:30)
[2024-05-26 05:06] LABS: MANUAL DIFF FLAG NO
[2024-05-26 05:10] LABS: Basophils Percent Auto 0.4 % (0-2); Eosinophils Absolute Auto 0.1 X10*3/uL (0.0-0.4); Eosinophils Percent Auto 0.7 % (0-4); Hematocrit 36.4 % (37.0-47.0); Imm Gran Abs Auto 0.04 X10*3/uL (0.00-0.03); Imm Gran Pct Auto 0.4 % (0.0-0.4); Lymphocytes Absolute Auto 2.3 X10*3/uL (1.2-4.9); Lymphocytes Percent Auto 21.8 % (20-40); Mean Corpuscular Hemoglobin 30.6 pg (27.0-33.0); Mean Corpuscular Volume 92.9 fL (80.0-98.0); Mean Platelet Volume 9.5 fL (9.4-12.3); Monocytes Absolute Auto 0.5 X10*3/uL (0.1-1.2); Monocytes Percent Auto 4.3 % (2-11); Neutrophils Absolute Auto 7.6 x10*3/uL (2.0-8.3); Neutrophils Percent Auto 72.4 % (45-73); Platelet Count 164 X10*3/uL (160-400); Red Blood Count 3.92 X10*6/uL (4.20-5.50); Red Cell Distribution Width 13.8 % (11.0-16.0); White Blood Count 10.5 X10*3/uL (4.8-10.8)
[2024-05-26 05:20] LABS: Ammonia 79 umol/L (13-55)
[2024-05-26 05:30] LABS: Albumin Level 3.6 g/dL (3.5-5.0); Alkaline Phosphatase 96 U/L (39-117); Anion Gap 10 (12-20); Aspartate Amino Transferase 46 U/L (5-31); Bilirubin Total 0.5 mg/dL (0.0-1.0); Blood Urea Nitrogen 8 mg/dL (9-16); Calcium 8.7 mg/dL (8.4-10.2); Carbon Dioxide 29 mmol/L (22-29); Chloride 106 mmol/L (96-108); Creatinine Clr Calc Pharmacy 109.1; Estimated Glomerular Filt Rate > 60; Glucose Random 107 mg/dL (60-115); Potassium 4.1 mmol/L (3.3-5.1); Sodium 141 mmol/L (135-145); Total Protein 7.6 g/dL (6.5-8.0)
[2024-05-26 05:44] LABS: Alanine Aminotransferase 54 U/L (0-31)
[2024-05-26 05:49] LABS: Procalcitonin 0.02 ng/mL
[2024-05-26 07:41] VITALS: BP 109/64; PULSE 87; RESP 16; TEMP 36.8; O2SAT 96
[2024-05-26] MEDS: Lactulose 20 GM/30 ML SOLUTION PO ×3 (08:23→20:06)
--- NOTE | 2024-05-26 09:42 | PM.EVENT ---
Event Note Date of Service: 05/26/24 Event Note: This is a 43-year-old female with pertinent history of hep C untreated, alcohol use disorder, opioid use disorder, mood disorder who was sent to the emergency department for evaluation of altered mentation. Acute metabolic encephalopathy. Resolved In the setting of hyperammonemia, sepsis and ?PRES Acute hypoxemic respiratory failure and sepsis due to right-sided bronchiolitis. Multiple tree-in-bud opacities with halo sign. Obtaining procalcitonin, sputum culture, Fungitell. Consulting pulmonology Initiating empiric IV Levaquin. Lactic acid and blood culture obtained and resuscitated with IV crystalloids. CT chest pending Hyperammonemia Initiating lactulose. Monitor ammonia. No imaging evidence of cirrhosis. No renal disease, GI bleed, UTI. Imaging concerning for ?PRES Blood pressure within normal limits. Seizure precautions. Ordered MRI brain. Consulted Neurology Mood disorder with SI Hold mood stabilizer in the setting of lethargy. Consulted sitter. CARE team once medically stable Hep C, untreated Outpatient follow-up Alcohol use disorder Monitor CIWA. Initiating thiamine Morbid obesity. BMI 45.3 Discussed importance of weight management as this may be contributing to worsening of other comorbidities DVT prophylaxis: Mechanical Full code Admit as inpatient and will require two night minimum hospital stay for (as above), which is not possible in a lesser acute setting. Time Spent With Patient Time: Total time managing care of this patient today ____ minutes.
--- NOTE | 2024-05-26 09:59 | PM.NEUROCN ---
History of Present Illness Data of Consult Service Date: 05/26/24 Primary Care Provider: Unknown Physician HPI Reason for consult: Abnormal head CT 43-year-old female with pertinent history of hep C untreated, alcohol use disorder, opioid use disorder, mood disorder who was sent to the emergency department for evaluation of altered mentation. initial head CT revealed some abnormalities prompting this consultation. She said that she was having a headache this morning but otherwise headache was not her major issue. She also said that this tendency to sleep was recent and started few days ago. She was not suffering from any cold or flu-like illness and had not taken any drugs of abuse recently. Review of Systems Review of Systems: No recent cold or flu-like illness PMFSH Past Medical History Medical History Asthma CVA (cerebral vascular accident) GERD (gastroesophageal reflux disease) Social History Social History Patient Tobacco Use Status: Current everyday Tobacco user Advance Directives: No Advance Directives Information Provided: No Do you have a plan to hurt others: No Plan Nutrition Risks: No Nutritional Risk Meds Allergies Allergy/AdvReac Type Severity Reaction Status Date / Time aspirin [ASA] Allergy Intermediate Hives Verified 05/25/24 22:28 Penicillins Allergy Dizziness Verified 11/29/23 15:34 Active Medications: Current Medications Acetaminophen (Acetaminophen 325 Mg Tablet) 650 mg PO Q6H PRN PRN Reason: Pain, Mild 1-3,fever,headache Last Admin: 05/26/24 02:29 Dose: 650 mg Calcium Carbonate (Calcium Carbonate 750 Mg Tab.Chew) 750 mg PO Q4H PRN PRN Reason: Heartburn Enoxaparin Sodium (Enoxaparin Sodium 40 Mg/0.4 Ml Syringe) 40 mg SUBCUT Q24H [facility] Last Admin: 05/26/24 02:29 Dose: 40 mg Levofloxacin (Levaquin) 750 mg in 150 mls @ 100 mls/hr IV Q24H [facility] Last Infusion: 05/26/24 08:18 Dose: Infused Thiamine HCl 100 mg/ Sodium (Chloride) 101 mls @ 202 mls/hr IV DAILY [facility] Last Infusion: 05/26/24 05:12 Dose: Infused Lactulose (Lactulose 20 Gm/30 Ml Solution) 20 gm PO Q6H [facility] Last Admin: 05/26/24 08:23 Dose: 20 gm Magnesium Hydroxide (Milk Of Magnesia 30 Ml Oral.Susp) 30 ml PO DAILY PRN PRN Reason: Constipation Melatonin (Melatonin 3 Mg Tablet) 6 mg PO BEDTIME PRN PRN Reason: Insomnia Ondansetron HCl (Ondansetron Hcl 4 Mg/2 Ml Vial) 4 mg IVPUSH Q8H PRN PRN Reason: Nausea and Vomiting Sodium Chloride (0.9 % Sodium Chloride Flush 3 Ml Syringe) 3 ml IVFLUSH QSHIFT [facility] Last Admin: 05/26/24 08:19 Dose: Not Given Home Medications ?Medication ?Instructions ?Recorded ?Confirmed ?Last Taken ?Type albuterol sulfate 2.5 mg/3 mL 2.5 mg inhalation Q4-6H PRN 05/26/24 Unknown History (0.083 %) solution for nebulization Shortness Of Breath Or Wheezing albuterol sulfate 90 mcg/actuation 2 puff inhalation Q4-6H PRN 05/26/24 Unknown History aerosol inhaler (Ventolin HFA) Shortness Of Breath Or Wheezing aripiprazole 10 mg tablet 10 mg PO DAILY 05/26/24 Unknown History atorvastatin 40 mg tablet 40 mg PO DAILY 05/26/24 Unknown History celecoxib 200 mg capsule 200 mg PO BID 05/26/24 Unknown History clonidine HCl 0.1 mg tablet 0.1 mg PO TID 05/26/24 Unknown History clopidogrel 75 mg tablet 75 mg PO DAILY 05/26/24 Unknown History escitalopram oxalate 20 mg tablet 20 mg PO DAILY 05/26/24 Unknown History gabapentin 800 mg tablet 800 mg PO TID 05/26/24 Unknown History melatonin 5 mg tablet 5 mg PO BEDTIME 05/26/24 Unknown History nicotine (polacrilex) 4 mg gum 4 mg buccal Q2H PRN Nicotine 05/26/24 Unknown History Cravings nicotine 7 mg/24 hr daily 1 patch transdermal DAILY 05/26/24 Unknown History transdermal patch pantoprazole 40 mg tablet,delayed 40 mg PO DAILY 05/26/24 Unknown History release polyethylene glycol 3350 17 17 g PO DAILY PRN Constipation 05/26/24 Unknown History gram/dose oral powder prazosin 2 mg capsule 2 mg PO BEDTIME 05/26/24 Unknown History quetiapine 300 mg tablet 300 mg PO BEDTIME 05/26/24 Unknown History quetiapine 50 mg tablet 50 mg PO BEDTIME 05/26/24 Unknown History sucralfate 1 gram tablet (Carafate) 1 g PO BID 05/26/24 Unknown History Physical Exam Vital Signs: Vital Signs: Last Vital Signs Temp 98.3 F 05/26/24 07:41 Pulse 87 05/26/24 07:41 Resp 16 05/26/24 07:41 BP 109/64 05/26/24 07:41 Pulse Ox 96 05/26/24 07:41 O2 Del Method Nasal Cannula 05/26/24 07:41 O2 Flow Rate 2 05/26/24 07:41 BMI result Body Mass Index 45.3 Neuro: Other: alert and awake with normal spontaneity of speech fluency comprehension and affect. She is moderately obese. Face is symmetrical. Left eye vision is limited. No focal arm or leg weakness. Deep tendon reflexes are absent with flexor plantars. Results Labs 05/26/24 05:01 05/26/24 05:01 Labs: Short CBC 05/25/24 05/26/24 Range/Units 21:15 05:01 WBC 12.7 H 10.5 (4.8-10.8) X10*3/uL Hgb 11.8 L 12.0 (12.0-16.0) g/dl Hct 36.9 L 36.4 L (37.0-47.0) % Plt Count 162 164 (160-400) X10*3/uL BMP 05/25/24 05/26/24 19:58 05:01 Sodium 141 141 Potassium 4.7 4.1 Chloride 106 106 Carbon Dioxide 30 H 29 BUN 9 8 L Creatinine 0.71 0.75 Calcium 8.7 D 8.7 Liver Function 05/25/24 05/26/24 Range/Units 19:58 05:01 Total Bilirubin 0.5 0.5 (0.0-1.0) mg/dL AST 49 H 46 H (5-31) U/L ALT 63 H 54 H (0-31) U/L Alkaline Phosphatase 102 96 (39-117) U/L Albumin 3.8 3.6 (3.5-5.0) g/dL Urine 05/25/24 Range/Units 21:35 Urine Color Yellow Urine Appearance Clear Urine pH 7.0 (5.0-9.0) Ur Specific [place] 1.020 (1.005-1.025) Urine Protein Negative (Neg-Trace) mg/dL Urine Glucose (UA) Negative (Negative) mg/dL Head CT revealed chronic microvascular ischemic changes. MRI of brain also revealed ischemic changes mostly in right middle cerebral artery area and not in left. No acute lesion was noted. Assessment and Plan (1) Hypersomnia: Status: Acute hypersomnia might be due to undiagnosed sleep apnea. A polysomnogram is recommended, which can be done as an outpatient. As far as her brain scan is concerned, she does have chronic ischemic changes only in right middle cerebral artery area in somewhat border zone areas suggestive of possible right middle cerebral artery disease. I recommend a CTA of brain and neck for proper evaluation. Otherwise treatment of vascular risk factors and anti-platelet agents such as baby aspirin daily is recommended. Please also check lipid profile. Procedures Date of Service Date of Service: 05/26/24
[2024-05-26 10:29] VITALS: BP 107/60; PULSE 75; RESP 20; TEMP 36.8; O2SAT 94
--- NOTE | 2024-05-26 10:46 | PC.NURSE ---
patient last dosed yesterday at [facility] inpt unit. 200 mg 05/25/2024 by Mikie palacio
--- NOTE | 2024-05-26 11:00 | HE.PHANOTE ---
re methadone dosing last dose given 200 mg on 05/25/24 @[facility]
--- NOTE | 2024-05-26 11:01 | PHA.MEDREC ---
Pharmacy Consult ? Medication Reconciliation Pharmacy has completed the medication reconciliation. Med rec complete using medication list provided by Brenda Fabian dated 05/25/24.
--- NOTE | 2024-05-26 11:50 | P.CONPL_ITS ---
History of Present Illness History of Present Illness Consult date: 05/26/24 Chief complaint: Abnormal CT scan Narrative: 43-year-old lady, recent 10-15 pack-year smoker, with underlying asthma and obesity, hepatitis-C being evaluated for an episode of alteration of mental status who had CT abdomen and pelvis performed as a part of the evaluation that demonstrated bibasilar lung nodules with halo sign and thus pulmonary consultation was requested. Patient denies any pulmonary related concerns or complaints at this time. She does state that she have asthma and environmental allergies that tend to flare up. She has been tried on albuterol MDI with suboptimal control of her symptoms. Patient does complain of persistent dry cough, but no significant sputum production. She initially required supplemental oxygen, but now has been titrated down to room air. Review of Systems 2 Constitutional: Constitutional: Denies fatigue Cardiovascular: Cardiovascular: Denies dyspnea on exertion Respiratory: Respiratory: Reports cough, Denies excessive phlegm production, Denies dyspnea on exertion and Denies wheezing Endocrine: Endocrine: Denies fatigue Allergic/Immunologic: Allergic/Immunologic: Denies wheezing [facility] Past Medical History Medical History (Updated 05/26/24 @ 11:53 by James Escobar MD) Asthma CVA (cerebral vascular accident) GERD (gastroesophageal reflux disease) Social History Social History Patient Tobacco Use Status: Current everyday Tobacco user Advance Directives: No Advance Directives Information Provided: No Do you have a plan to hurt others: No Plan Nutrition Risks: No Nutritional Risk Meds Allergies Allergy/AdvReac Type Severity Reaction Status Date / Time aspirin [ASA] Allergy Intermediate Hives Verified 05/25/24 22:28 Penicillins Allergy Dizziness Verified 11/29/23 15:34 Active Medications: Current Medications Acetaminophen (Acetaminophen 325 Mg Tablet) 650 mg PO Q6H PRN PRN Reason: Pain, Mild 1-3,fever,headache Last Admin: 05/26/24 02:29 Dose: 650 mg Calcium Carbonate (Calcium Carbonate 750 Mg Tab.Chew) 750 mg PO Q4H PRN PRN Reason: Heartburn Enoxaparin Sodium (Enoxaparin Sodium 40 Mg/0.4 Ml Syringe) 40 mg SUBCUT Q24H [facility]UM Last Admin: 05/26/24 02:29 Dose: 40 mg Levofloxacin (Levaquin) 750 mg in 150 mls @ 100 mls/hr IV Q24H [facility] Last Infusion: 05/26/24 08:18 Dose: Infused Thiamine HCl 100 mg/ Sodium (Chloride) 101 mls @ 202 mls/hr IV DAILY [facility] Last Infusion: 05/26/24 05:12 Dose: Infused Lactulose (Lactulose 20 Gm/30 Ml Solution) 20 gm PO Q6H [facility] Last Admin: 05/26/24 08:23 Dose: 20 gm Magnesium Hydroxide (Milk Of Magnesia 30 Ml Oral.Susp) 30 ml PO DAILY PRN PRN Reason: Constipation Melatonin (Melatonin 3 Mg Tablet) 6 mg PO BEDTIME PRN PRN Reason: Insomnia Ondansetron HCl (Ondansetron Hcl 4 Mg/2 Ml Vial) 4 mg IVPUSH Q8H PRN PRN Reason: Nausea and Vomiting Sodium Chloride (0.9 % Sodium Chloride Flush 3 Ml Syringe) 3 ml IVFLUSH QSHIFT [facility] Last Admin: 05/26/24 08:19 Dose: Not Given Home Medications ?Medication ?Instructions ?Recorded ?Confirmed ?Last Taken ?Type albuterol sulfate 90 mcg/actuation 2 puff inhalation Q4-6H PRN 05/26/24 05/26/24 Unknown History aerosol inhaler (Ventolin HFA) Shortness Of Breath Or Wheezing aluminum-mag hydroxide-simethicone 30 ml PO QID PRN gi upset 05/26/24 05/26/24 Unknown History 200 mg-200 mg-20 mg/5 mL oral susp atorvastatin 40 mg tablet 40 mg PO DAILY 05/26/24 05/26/24 Unknown History benzocaine 15 mg-menthol 3.6 mg 1 flor mucous membrane Q2H PRN Sore 05/26/24 05/26/24 Unknown History lozenges Throat calcium carbonate 500 mg PO QID PRN Heartburn 05/26/24 05/26/24 Unknown History celecoxib 200 mg capsule 200 mg PO BID 05/26/24 05/26/24 Unknown History clonidine HCl 0.1 mg tablet 0.1 mg PO TID 05/26/24 05/26/24 Unknown History clopidogrel 75 mg tablet 75 mg PO DAILY 05/26/24 05/26/24 Unknown History divalproex 500 mg tablet,delayed 500 mg PO BID 05/26/24 05/26/24 Unknown History release docusate sodium 100 mg capsule 100 mg PO BID PRN Constipation 05/26/24 05/26/24 Unknown History (Colace) escitalopram oxalate 20 mg tablet 20 mg PO DAILY 05/26/24 05/26/24 Unknown History gabapentin 800 mg tablet 800 mg PO TID 05/26/24 05/26/24 Unknown History guaifenesin 600 mg tablet, 1,200 mg PO BID PRN Cough 05/26/24 05/26/24 Unknown History extended release 12 hr hydroxyzine pamoate 50 mg capsule 50 mg PO Q4H PRN MODERATE TO 05/26/24 05/26/24 Unknown History SEVERE AGITATION loperamide 2 mg capsule 2 mg PO QID PRN Loose Stool 05/26/24 05/26/24 Unknown History melatonin 5 mg tablet 5 mg PO BEDTIME 05/26/24 05/26/24 Unknown History methadone 10 mg/mL oral 200 mg PO DAILY 05/26/24 05/26/24 05/25/24 History concentrate (Methadone Intensol) nicotine (polacrilex) 2 mg gum 2 mg buccal Q2H PRN NICOTINE 05/26/24 05/26/24 Unknown History WITHDRAWAL nicotine 7 mg/24 hr daily 1 patch transdermal DAILY 05/26/24 05/26/24 Unknown History transdermal patch ondansetron 4 mg disintegrating 4 mg PO Q6H PRN NAUSEA/VOMITING 05/26/24 05/26/24 Unknown History tablet pantoprazole 40 mg tablet,delayed 40 mg PO DAILY@0630 05/26/24 05/26/24 Unknown History release prazosin 2 mg capsule 2 mg PO BEDTIME 05/26/24 05/26/24 Unknown History quetiapine 300 mg tablet 300 mg PO BEDTIME 05/26/24 05/26/24 Unknown History sennosides 8.6 mg tablet (senna) 17.2 mg PO DAILY PRN Constipation 05/26/24 05/26/24 Unknown History Physical Exam 2 Vital Signs: Vital Signs: Last Vital Signs Temp 98.3 F 05/26/24 10:29 Pulse 75 05/26/24 10:29 Resp 20 05/26/24 10:29 BP 107/60 05/26/24 10:29 Pulse Ox 94 05/26/24 10:29 O2 Del Method Nasal Cannula 05/26/24 10:29 O2 Flow Rate 2 05/26/24 10:29 BMI result Body Mass Index 45.3 Const: General: no acute distress, alert and awake Nutritional Appearance: obese Eyes: Sclerae: sclerae normal EOM: EOMs intact bilaterally Neck: Neck: Yes no lymphadenopathy, Yes trachea midline and Yes supple Resp: Effort & Inspection: normal respiratory effort and no respiratory distress Auscultation: clear to auscultation bilaterally Cardio: Rate: regular rate Rhythm: regular rhythm Heart sounds: no gallops, no murmurs and no rubs GI: Palpation (GI): Soft to palpation and Other GI palpation findings present ( Nontender) Auscultation: normal bowel sounds Extrem: General: Yes no pedal edema, No clubbing and No cyanosis Results Laboratory Findings 05/26/24 05:01 05/26/24 05:01 Abnormal lab findings: Abnormal Labs 05/25/24 05/25/24 05/25/24 19:58 21:15 21:21 WBC 12.7 H RBC 3.98 L Hgb 11.8 L Hct 36.9 L Neut % (Auto) 79.2 H Lymph % (Auto) 15.5 L Abs Immat Gran (auto) 0.04 H Absolute Neuts (auto) 10.0 H VBG pH VBG HCO3 34 H Carbon Dioxide 30 H Anion Gap 10 L BUN AST 49 H ALT 63 H Ammonia 83 H Total Protein 8.1 H Urine Methadone Screen 05/25/24 05/26/24 05/26/24 21:35 01:52 05:01 WBC RBC 3.92 L Hgb Hct 36.4 L Neut % (Auto) Lymph % (Auto) Abs Immat Gran (auto) 0.04 H Absolute Neuts (auto) VBG pH 7.44 H VBG HCO3 36 H Carbon Dioxide Anion Gap 10 L BUN 8 L AST 46 H ALT 54 H Ammonia 79 H Total Protein Urine Methadone Screen Positive H Assessment and Plan (1) Abnormal CT scan, chest: Status: Acute (2) Asthma: Status: Acute Plan Impression: 43-year-old lady with underlying asthma being evaluated alteration of mental status with bibasilar pulmonary nodules noted on CT abdomen and pelvis. Recommendations: Obtain CT chest without contrast to evaluate upper lobes. Will obtain Aspergillus IgE and beta D glucan. Underlying bronchitis, consider empiric azithromycin. Will require further pulmonary follow-up on outpatient basis. Procedures Date of Service Date of Service: 05/26/24
[2024-05-26] MEDS: methADONE HCl 20 MG/2 ML ORAL.CONC 200 MG PO (12:29)
--- NOTE | 2024-05-26 12:33 | PC.NURSE ---
assumed care of patient at 0700, patient sitting up in bed, alert and oriented x4. patient ambulates with steady gait to the bathroom, patient is form inpatient psych floor at [facility], has sitter at bedside. patient medicated per JUL. skin noted to be dry and intact.
[2024-05-26 14:03] VITALS: BMI 49.1
[2024-05-26] MEDS: cloNIDine HCL 0.1 MG TABLET PO ×2 (14:10→20:07)
[2024-05-26] MEDS: Gabapentin 400 MG CAPSULE 800 MG PO ×2 (14:11→20:06)
[2024-05-26] MEDS: Escitalopram Oxalate 20 MG TABLET PO (14:38)
[2024-05-26] MEDS: Clopidogrel Bisulfate 75 MG TABLET PO (14:39)
[2024-05-26] MEDS: 0.9 % Sodium Chloride Flush 3 ML SYRINGE IVFLUSH ×2 (14:41→20:07)
[2024-05-26 15:27] VITALS: BP 125/78; PULSE 76; RESP 20; TEMP 36; O2SAT 93
[2024-05-26 19:07] VITALS: BP 110/70; PULSE 62; RESP 18; TEMP 36.4; O2SAT 93
[2024-05-26] MEDS: Divalproex Sodium 500 MG TABLET.DR PO (20:06)
[2024-05-26] MEDS: Celecoxib 200 MG CAPSULE PO (20:06)
[2024-05-26] MEDS: Prazosin HCL 1 MG CAPSULE 2 MG PO (20:06)
[2024-05-26] MEDS: Melatonin 3 MG TABLET 6 MG PO (20:06)
[2024-05-26] MEDS: QUEtiapine Fumarate 300 MG TABLET PO (20:06)
[2024-05-26 20:07] VITALS: BP 110/70
--- NOTE | 2024-05-26 23:37 | PC.NURSE ---
Pt c/o difficulty breathing 02sat-83-88%.Pt drowsy 02 3L n/c applied 02sat-97%.Encourage pt to take deep breaths.Pt states supposed to have a sleep study done for sleep apnea.
[2024-05-27] MEDS: levoFLOXacin/D5W 750 MG/150 ML PIGGYBACK 100 MG IV (02:08)
[2024-05-27] MEDS: Enoxaparin Sodium 40 MG/0.4 ML SYRINGE SUBCUT (02:08)
[2024-05-27] MEDS: Lactulose 20 GM/30 ML SOLUTION PO ×4 (02:08→20:07)
[2024-05-27 03:45] VITALS: BP 113/68; PULSE 95; RESP 20; TEMP 36.7; O2SAT 96
[2024-05-27] MEDS: Pantoprazole Sodium 20 MG TABLET.DR 40 MG PO (05:35)
[2024-05-27 07:15] VITALS: BP 138/80; PULSE 88; RESP 20; TEMP 36.1; O2SAT 92
[2024-05-27 08:00] VITALS: O2SAT 95
--- NOTE | 2024-05-27 08:42 | P.PNIM_ITS ---
Subjective Subjective Date of Service: 05/27/24 Review of Systems Follow up acute metabolic encephalopathy, hypoxemic respiratory failure Feeling better today, sleepy Physical Exam 2 Vital Signs: Vital Signs: Last Vital Signs Temp 97.0 F 05/27/24 07:15 Pulse 88 05/27/24 07:15 Resp 20 05/27/24 07:15 BP 138/80 05/27/24 07:15 Pulse Ox 92 05/27/24 07:15 O2 Del Method Nasal Cannula 05/27/24 07:15 O2 Flow Rate 2 05/27/24 07:15 BMI result Body Mass Index 49.1 Appearing in no acute distress lung sounds are clear to auscultation heart regular rate rhythm, clear S1, S2 positive bowel sounds, abdomen is soft, nontender neuro patient is alert x3, no focal deficits Objective Data Active Medications Acetaminophen (Acetaminophen 325 Mg Tablet) 650 mg PO Q6H PRN PRN Reason: Pain, Mild 1-3,fever,headache Last Admin: 05/26/24 02:29 Dose: 650 mg Documented By: CLEMENTE Al Hydroxide/Mg Hydroxide (Magnesium Hydrox/Alum Hydrox 30 Ml Oral.Susp) 30 ml PO QID PRN PRN Reason: gi upset Albuterol Sulfate (Albuterol Sulfate 90 Mcg 8 Gm Inhaler) 2 puff INHALE Q4H PRN PRN Reason: Shortness Of Breath Or Wheezing Atorvastatin Calcium (Atorvastatin Calcium 40 Mg Tablet) 40 mg PO DAILY [facility] Benzocaine (Throat Lozenge, Medicated Lozenge) 1 lozenge MUCOUS MEM Q2H PRN PRN Reason: Sore Throat Calcium Carbonate (Calcium Carbonate 750 Mg Tab.Chew) 750 mg PO QID PRN PRN Reason: Heartburn Celecoxib (Celecoxib 200 Mg Capsule) 200 mg PO BID [facility] Last Admin: 05/26/24 20:06 Dose: 200 mg Documented By: ENRRIQUE Clonidine HCl (Clonidine Hcl 0.1 Mg Tablet) 0.1 mg PO TID [facility]; Protocol Last Admin: 05/26/24 20:07 Dose: 0.1 mg Documented By: ENRRIQUE Clopidogrel Bisulfate (Clopidogrel Bisulfate 75 Mg Tablet) 75 mg PO DAILY [facility] Last Admin: 05/26/24 14:39 Dose: 75 mg Documented By: GENTRY Divalproex Sodium (Divalproex Sodium 500 Mg Tablet.Dr) 500 mg PO BID [facility] Last Admin: 05/26/24 20:06 Dose: 500 mg Documented By: ENRRIQUE Docusate Sodium (Docusate Sodium 100 Mg Capsule) 100 mg PO BID PRN PRN Reason: Constipation Enoxaparin Sodium (Enoxaparin Sodium 40 Mg/0.4 Ml Syringe) 40 mg SUBCUT Q24H [facility] Last Admin: 05/27/24 02:08 Dose: 40 mg Documented By: ENRRIQUE Escitalopram Oxalate (Escitalopram Oxalate 20 Mg Tablet) 20 mg PO DAILY [facility] Last Admin: 05/26/24 14:38 Dose: 20 mg Documented By: GENTRY Gabapentin (Gabapentin 400 Mg Capsule) 800 mg PO TID [facility] Last Admin: 05/26/24 20:06 Dose: 800 mg Documented By: ENRRIQUE Guaifenesin (Guaifenesin La 600 Mg Tab.Er.12h) 1,200 mg PO BID PRN PRN Reason: Cough Hydroxyzine HCl (Hydroxyzine Hcl 50 Mg Tablet) 50 mg PO Q4H PRN PRN Reason: MODERATE TO SEVERE AGITATION Levofloxacin (Levaquin) 750 mg in 150 mls @ 100 mls/hr IV Q24H [facility] Last Infusion: 05/27/24 03:41 Dose: Infused Documented By: ENRRIQUE Thiamine HCl 100 mg/ Sodium (Chloride) 101 mls @ 202 mls/hr IV DAILY [facility] Last Infusion: 05/26/24 05:12 Dose: Infused Documented By: SANJAY-PORSHELLY Lactulose (Lactulose 20 Gm/30 Ml Solution) 20 gm PO Q6H [facility] Last Admin: 05/27/24 02:08 Dose: 20 gm Documented By: ENRRIQUE Loperamide HCl (Loperamide Hcl 2 Mg Capsule) 2 mg PO QID PRN PRN Reason: Loose Stool Magnesium Hydroxide (Milk Of Magnesia 30 Ml Oral.Susp) 30 ml PO DAILY PRN PRN Reason: Constipation Melatonin (Melatonin 3 Mg Tablet) 6 mg PO BEDTIME PRN PRN Reason: Insomnia Melatonin (Melatonin 3 Mg Tablet) 6 mg PO BEDTIME [facility] Last Admin: 05/26/24 20:06 Dose: 6 mg Documented By: ENRRIQUE Methadone HCl (Methadone Hcl 20 Mg/2 Ml Oral.Conc) 200 mg PO DAILY [facility] Last Admin: 05/26/24 12:29 Dose: 200 mg Documented By: HANK Co-signed By: MAUREEN Nicotine (Nicotine 7 Mg Patch.Td24) 7 mg TRANSDERMA DAILY [facility] Nicotine Polacrilex (Nicotine Polacrilex 2 Mg Gum) 2 mg BUCCAL Q2H PRN PRN Reason: NICOTINE WITHDRAWAL Ondansetron HCl (Ondansetron Hcl 4 Mg/2 Ml Vial) 4 mg IVPUSH Q8H PRN PRN Reason: Nausea and Vomiting Pantoprazole Sodium (Pantoprazole Sodium 20 Mg Tablet.) 40 mg PO DAILY@0630 [facility] Last Admin: 05/27/24 05:35 Dose: 40 mg Documented By: ENRRIQUE Prazosin HCl (Prazosin Hcl 1 Mg Capsule) 2 mg PO BEDTIME [facility]; Protocol Last Admin: 05/26/24 20:06 Dose: 2 mg Documented By: ENRRIQUE Quetiapine Fumarate (Quetiapine Fumarate 300 Mg Tablet) 300 mg PO BEDTIME [facility] Last Admin: 05/26/24 20:06 Dose: 300 mg Documented By: ENRRIQUE Senna (Sennosides 8.6 Mg Tablet) 17.2 mg PO DAILY PRN PRN Reason: Constipation Sodium Chloride (0.9 % Sodium Chloride Flush 3 Ml Syringe) 3 ml IVFLUSH QSHIFT [facility] Last Admin: 05/26/24 20:07 Dose: 3 ml Documented By: ENRRIQUE Labs 05/26/24 05:01 05/26/24 05:01 Labs: Laboratory Results - last 24 hr 05/27/24 08:27 Hold Purple Top SEE NOTE Microbiology Microbiology Results: Microbiology 05/26/24 01:45 Blood Culture - Preliminary Blood - Venous No growth after 24 hours. 05/26/24 01:45 Blood Culture - Preliminary Blood - Venous No growth after 24 hours. Assessment and Plan (1) Hyperammonemia: Status: Acute Plan This is a 43-year-old female with pertinent history of hep C untreated, alcohol use disorder, opioid use disorder, mood disorder who was sent to the emergency department for evaluation of altered mentation. Possible sleep apnea over night sleep study while inpatient can try cpap Acute metabolic encephalopathy. Resolved In the setting of hyperammonemia, sepsis and ?PRES (neg MRI) Seen by Neuro> ? sleep apnea, check head anc neck CTA for ? vascular disease Acute hypoxemic respiratory failure and sepsis due to right-sided bronchiolitis. Multiple tree-in-bud opacities with halo sign. Consulting pulmonology> following fungal labs, see full note blood culture neg CT chest> multiple small nodular airspace opacities throughout right lung and left lower lobe suggesting inflammatory versus infectious process continue IV Levaquin Hyperammonemia continue lactulose. Monitor ammonia, trending down No imaging evidence of cirrhosis. No renal disease, GI bleed, UTI. Imaging concerning for ?PRES Blood pressure within normal limits. Seizure precautions. Ordered MRI brain>no PRES. Consulted Neurology Mood disorder with SI Hold mood stabilizer in the setting of lethargy. Consulted sitter. CARE team once medically stable Hep C, untreated Outpatient follow-up Alcohol use disorder Monitor CIWA. Initiating thiamine Morbid obesity. BMI 49.2 Discussed importance of weight management as this may be contributing to worsening of other comorbidities DVT prophylaxis: Mechanical Full code Quality Stroke Does the patient have a stroke diagnosis?: No VTE Prior VTE?: No VTE Risk Level:: Medical - moderate - high VTE Device Contraindication: Treatment Not Indicated VTE Drug Contraindication: N/A - Med Ordered
[2024-05-27] MEDS: Atorvastatin Calcium 40 MG TABLET PO (09:23)
[2024-05-27] MEDS: Gabapentin 400 MG CAPSULE 800 MG PO (09:23)
[2024-05-27 09:24] VITALS: BP 123/80
[2024-05-27] MEDS: Celecoxib 200 MG CAPSULE PO ×2 (09:24→20:07)
[2024-05-27] MEDS: Clopidogrel Bisulfate 75 MG TABLET PO (09:24)
[2024-05-27] MEDS: Divalproex Sodium 500 MG TABLET.DR PO ×2 (09:24→20:08)
[2024-05-27] MEDS: cloNIDine HCL 0.1 MG TABLET PO ×3 (09:24→20:08)
[2024-05-27] MEDS: Escitalopram Oxalate 20 MG TABLET PO (09:24)
[2024-05-27] MEDS: methADONE HCl 20 MG/2 ML ORAL.CONC 200 MG PO (09:24)
[2024-05-27] MEDS: Thiamine HCL 100 MG in 0.9 % Sodium Chloride 100 ML 202 MG IV (09:25)
[2024-05-27] MEDS: Nicotine 21 MG PATCH.TD24 TRANSDERMA (10:01)
[2024-05-27] MEDS: iohexoL 350 MG/ML 100 ML INFUS..BTL 70 ML IV (11:55)
[2024-05-27 14:59] VITALS: BP 122/65; PULSE 72; RESP 20; TEMP 36.4; O2SAT 94
--- NOTE | 2024-05-27 15:15 | MHC.CM.PN ---
PT REPORTS SHE WAS LIVING IN A PROGRAM, HOWEVER THEY KICKED HER OUT SHE SAYS SHE HAD NO WHERE TO SLEEP, SO SHE CALLED PSYCH SHE SAYS SHE HAS BEEN IN 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
[2024-05-27] MEDS: 0.9 % Sodium Chloride Flush 3 ML SYRINGE IVFLUSH ×3 (15:39→20:20)
[2024-05-27] MEDS: Acetaminophen 325 MG TABLET 650 MG PO (16:44)
[2024-05-27 19:15] VITALS: BP 140/86; PULSE 80; RESP 20; TEMP 36.2; O2SAT 93
[2024-05-27] MEDS: Prazosin HCL 1 MG CAPSULE 2 MG PO (20:08)
[2024-05-27] MEDS: QUEtiapine Fumarate 50 MG TABLET 150 MG PO (20:08)
[2024-05-27] MEDS: Melatonin 3 MG TABLET 6 MG PO (20:08)
--- NOTE | 2024-05-27 22:58 | PC.RT ---
placed pt on sleep study for the night on room air. hr 87 sats 90 rr 16
[2024-05-28] MEDS: Enoxaparin Sodium 40 MG/0.4 ML SYRINGE SUBCUT (03:43)
[2024-05-28] MEDS: Lactulose 20 GM/30 ML SOLUTION PO ×4 (03:43→19:43)
[2024-05-28] MEDS: levoFLOXacin/D5W 750 MG/150 ML PIGGYBACK 100 MG IV (03:50)
[2024-05-28 04:00] VITALS: BP 127/69; PULSE 74; RESP 18; TEMP 36; O2SAT 93
[2024-05-28] MEDS: Pantoprazole Sodium 20 MG TABLET.DR 40 MG PO (05:24)
[2024-05-28 07:34] VITALS: BP 133/64; PULSE 70; RESP 12; TEMP 36.1; O2SAT 93
[2024-05-28] MEDS: methADONE HCl 20 MG/2 ML ORAL.CONC 100 MG PO ×2 (08:20→11:10)
[2024-05-28] MEDS: Divalproex Sodium 500 MG TABLET.DR PO ×2 (08:23→19:44)
[2024-05-28] MEDS: Celecoxib 200 MG CAPSULE PO ×2 (08:23→19:44)
[2024-05-28] MEDS: Clopidogrel Bisulfate 75 MG TABLET PO (08:23)
[2024-05-28] MEDS: cloNIDine HCL 0.1 MG TABLET PO ×3 (08:24→19:44)
[2024-05-28] MEDS: Atorvastatin Calcium 40 MG TABLET PO (08:24)
[2024-05-28] MEDS: Escitalopram Oxalate 20 MG TABLET PO (08:24)
[2024-05-28] MEDS: Nicotine 21 MG PATCH.TD24 TRANSDERMA (08:25)
[2024-05-28] MEDS: 0.9 % Sodium Chloride Flush 3 ML SYRINGE IVFLUSH ×3 (08:25→19:43)
[2024-05-28] MEDS: Thiamine HCL 100 MG in 0.9 % Sodium Chloride 100 ML 200 MG IV (08:31)
[2024-05-28 09:11] LABS: Ammonia 63 umol/L (13-55)
--- NOTE | 2024-05-28 09:38 | HO.PM.IMPN ---
Subjective Subjective Date of Service: 05/28/24 Review of Systems Follow up acute metabolic encephalopathy, hypoxemic respiratory failure Feeling better today, sleepy Physical Exam Vital Signs: Vital Signs: Last Vital Signs Temp 96.9 F 05/28/24 07:34 Pulse 70 05/28/24 07:34 Resp 12 05/28/24 07:34 BP 133/64 05/28/24 07:34 Pulse Ox 93 05/28/24 07:34 O2 Del Method Nasal Cannula 05/28/24 07:34 O2 Flow Rate 2 05/28/24 07:34 BMI result Body Mass Index 49.1 Appearing in no acute distress lung sounds are clear to auscultation heart regular rate rhythm, clear S1, S2 positive bowel sounds, abdomen is soft, nontender neuro patient is alert x3, no focal deficits Objective Data Active Medications Acetaminophen (Acetaminophen 325 Mg Tablet) 650 mg PO Q6H PRN PRN Reason: Pain, Mild 1-3,fever,headache Last Admin: 05/27/24 16:44 Dose: 650 mg Documented By: BRUNA Al Hydroxide/Mg Hydroxide (Magnesium Hydrox/Alum Hydrox 30 Ml Oral.Susp) 30 ml PO QID PRN PRN Reason: gi upset Albuterol Sulfate (Albuterol Sulfate 90 Mcg 8 Gm Inhaler) 2 puff INHALE Q4H PRN PRN Reason: Shortness Of Breath Or Wheezing Atorvastatin Calcium (Atorvastatin Calcium 40 Mg Tablet) 40 mg PO DAILY [facility] Last Admin: 05/28/24 08:24 Dose: 40 mg Documented By: LAITH Benzocaine (Throat Lozenge, Medicated Lozenge) 1 lozenge MUCOUS MEM Q2H PRN PRN Reason: Sore Throat Calcium Carbonate (Calcium Carbonate 750 Mg Tab.Chew) 750 mg PO QID PRN PRN Reason: Heartburn Celecoxib (Celecoxib 200 Mg Capsule) 200 mg PO BID [facility] Last Admin: 05/28/24 08:23 Dose: 200 mg Documented By: LAITH Clonidine HCl (Clonidine Hcl 0.1 Mg Tablet) 0.1 mg PO TID [facility]; Protocol Last Admin: 05/28/24 08:24 Dose: 0.1 mg Documented By: LAITH Clopidogrel Bisulfate (Clopidogrel Bisulfate 75 Mg Tablet) 75 mg PO DAILY [facility] Last Admin: 05/28/24 08:23 Dose: 75 mg Documented By: LAITH Divalproex Sodium (Divalproex Sodium 500 Mg Tablet.) 500 mg PO BID [facility] Last Admin: 05/28/24 08:23 Dose: 500 mg Documented By: LAITH Docusate Sodium (Docusate Sodium 100 Mg Capsule) 100 mg PO BID PRN PRN Reason: Constipation Enoxaparin Sodium (Enoxaparin Sodium 40 Mg/0.4 Ml Syringe) 40 mg SUBCUT Q24H [facility] Last Admin: 05/28/24 03:43 Dose: 40 mg Documented By: NATHAN Escitalopram Oxalate (Escitalopram Oxalate 20 Mg Tablet) 20 mg PO DAILY [facility] Last Admin: 05/28/24 08:24 Dose: 20 mg Documented By: LAITH Gabapentin (Gabapentin 400 Mg Capsule) 800 mg PO TID [facility] Last Admin: 05/27/24 15:38 Dose: Not Given Documented By: BRUNA Non-Admin Reason: Physician Held Med Guaifenesin (Guaifenesin La 600 Mg Tab.Er.12h) 1,200 mg PO BID PRN PRN Reason: Cough Hydroxyzine HCl (Hydroxyzine Hcl 50 Mg Tablet) 50 mg PO Q4H PRN PRN Reason: MODERATE TO SEVERE AGITATION Levofloxacin (Levaquin) 750 mg in 150 mls @ 100 mls/hr IV Q24H [facility] Last Infusion: 05/28/24 05:26 Dose: Infused Documented By: NATHAN Thiamine HCl 100 mg/ Sodium (Chloride) 101 mls @ 202 mls/hr IV DAILY [facility] Last Infusion: 05/28/24 09:28 Dose: Infused Documented By: LAITH Lactulose (Lactulose 20 Gm/30 Ml Solution) 20 gm PO Q6H [facility] Last Admin: 05/28/24 08:23 Dose: 20 gm Documented By: LAITH Loperamide HCl (Loperamide Hcl 2 Mg Capsule) 2 mg PO QID PRN PRN Reason: Loose Stool Magnesium Hydroxide (Milk Of Magnesia 30 Ml Oral.Susp) 30 ml PO DAILY PRN PRN Reason: Constipation Melatonin (Melatonin 3 Mg Tablet) 6 mg PO BEDTIME PRN PRN Reason: Insomnia Melatonin (Melatonin 3 Mg Tablet) 6 mg PO BEDTIME [facility] Last Admin: 05/27/24 20:08 Dose: 6 mg Documented By: NATHAN Methadone HCl (Methadone Hcl 20 Mg/2 Ml Oral.Conc) 100 mg PO DAILY [facility] Last Admin: 05/28/24 08:20 Dose: 100 mg Documented By: LAITH Co-signed By: LINDA Nicotine (Nicotine 21 Mg Patch.Td24) 21 mg TRANSDERMA DAILY [facility] Last Admin: 05/28/24 08:25 Dose: 21 mg Documented By: LAITH Nicotine Polacrilex (Nicotine Polacrilex 2 Mg Gum) 2 mg BUCCAL Q2H PRN PRN Reason: NICOTINE WITHDRAWAL Ondansetron HCl (Ondansetron Hcl 4 Mg/2 Ml Vial) 4 mg IVPUSH Q8H PRN PRN Reason: Nausea and Vomiting Pantoprazole Sodium (Pantoprazole Sodium 20 Mg Tablet.Dr) 40 mg PO DAILY@0630 [facility] Last Admin: 05/28/24 05:24 Dose: 40 mg Documented By: NATHAN Prazosin HCl (Prazosin Hcl 1 Mg Capsule) 2 mg PO BEDTIME [facility]; Protocol Last Admin: 05/27/24 20:08 Dose: 2 mg Documented By: NATHAN Quetiapine Fumarate (Quetiapine Fumarate 50 Mg Tablet) 150 mg PO BEDTIME [facility] Last Admin: 05/27/24 20:08 Dose: 150 mg Documented By: NATHAN Senna (Sennosides 8.6 Mg Tablet) 17.2 mg PO DAILY PRN PRN Reason: Constipation Sodium Chloride (0.9 % Sodium Chloride Flush 3 Ml Syringe) 3 ml IVFLUSH QSHIFT [facility] Last Admin: 05/28/24 08:25 Dose: 3 ml Documented By: LAITH Labs 05/26/24 05:01 05/26/24 05:01 Labs: Laboratory Results - last 24 hr 05/28/24 08:58 Ammonia 63 H Microbiology Microbiology Results: Microbiology 05/26/24 Unknown Gram Stain - Final Sputum - Expectorated Sputum Culture - Final 05/26/24 01:45 Blood Culture - Preliminary Blood - Venous No growth after 48 hours. 05/26/24 01:45 Blood Culture - Preliminary Blood - Venous No growth after 48 hours. Assessment and Plan (1) Hyperammonemia: Status: Acute Plan This is a 43-year-old female with pertinent history of hep C untreated, alcohol use disorder, opioid use disorder, mood disorder who was sent to the emergency department for evaluation of altered mentation. Possible sleep apnea over night sleep study while inpatient can try cpap Acute metabolic encephalopathy. Resolved In the setting of hyperammonemia, sepsis and ?PRES (neg MRI) Seen by Neuro> ? sleep apnea, check head anc neck CTA for ? vascular disease (negative) Acute hypoxemic respiratory failure and sepsis due to right-sided bronchiolitis. Multiple tree-in-bud opacities with halo sign. Consulting pulmonology> following fungal labs, see full note blood culture neg sputum cx neg CT chest> multiple small nodular airspace opacities throughout right lung and left lower lobe suggesting inflammatory versus infectious process continue IV Levaquin repeat CXR Hyperammonemia continue lactulose. Monitor ammonia, trending down No imaging evidence of cirrhosis. No renal disease, GI bleed, UTI. Imaging concerning for ?PRES Blood pressure within normal limits. Seizure precautions. Ordered MRI brain>no PRES. Consulted Neurology Mood disorder with SI gabapentin decreased to 800 mg BID, seroquel decreased to 150mg daily per patient request Consulted sitter. CARE team once medically stable Hep C, untreated Outpatient follow-up Substance abuse Methadone 200 mg daily Alcohol use disorder Monitor CIWA. Initiating thiamine Morbid obesity. BMI 49.2 Discussed importance of weight management as this may be contributing to worsening of other comorbidities DVT prophylaxis: Mechanical Full code Quality Stroke Does the patient have a stroke diagnosis?: No VTE Prior VTE?: No VTE Risk Level:: Medical - moderate - high VTE Device Contraindication: Treatment Not Indicated VTE Drug Contraindication: N/A - Med Ordered
--- NOTE | 2024-05-28 15:30 | MHC.CM.PN ---
Per MD rounds , no discharge today. Patient's Methadone dose has been increased. DP CSS via [employer]. Per documentation [place]/identification officer are arranging for the program.
[2024-05-28 15:47] VITALS: BP 125/65; PULSE 70; RESP 16; TEMP 36.2; O2SAT 95
[2024-05-28] MEDS: Prazosin HCL 1 MG CAPSULE 2 MG PO (19:43)
[2024-05-28] MEDS: Melatonin 3 MG TABLET 6 MG PO (19:44)
[2024-05-28] MEDS: QUEtiapine Fumarate 50 MG TABLET 150 MG PO (19:44)
[2024-05-28 23:30] VITALS: BP 131/87; PULSE 77; RESP 18; TEMP 36.1; O2SAT 99
[2024-05-29] MEDS: Enoxaparin Sodium 40 MG/0.4 ML SYRINGE SUBCUT (04:09)
[2024-05-29] MEDS: Lactulose 20 GM/30 ML SOLUTION PO ×4 (04:10→20:19)
[2024-05-29] MEDS: levoFLOXacin/D5W 750 MG/150 ML PIGGYBACK 100 MG IV (05:11)
[2024-05-29] MEDS: Pantoprazole Sodium 20 MG TABLET.DR 40 MG PO (05:12)
--- NOTE | 2024-05-29 06:04 | MHC.PIE ---
p; levaquin due, chasidy in [facility]3w med not available, according to chasidy, med available in [facility]? [facility] shows med available but drawer empty. i;nursing sup notified med given off schedule. pharmacy notified of late administration e; will cont to moniotor
[2024-05-29] MEDS: 0.9 % Sodium Chloride Flush 3 ML SYRINGE IVFLUSH ×3 (07:29→20:21)
[2024-05-29] MEDS: Thiamine HCL 100 MG in 0.9 % Sodium Chloride 100 ML 202 MG IV (07:30)
[2024-05-29 07:31] VITALS: O2SAT 93
[2024-05-29 07:32] VITALS: BP 136/72; PULSE 69; RESP 16; TEMP 36; O2SAT 94
[2024-05-29] MEDS: Clopidogrel Bisulfate 75 MG TABLET PO (07:39)
[2024-05-29] MEDS: Escitalopram Oxalate 20 MG TABLET PO (07:39)
[2024-05-29] MEDS: Divalproex Sodium 500 MG TABLET.DR PO ×2 (07:39→20:19)
[2024-05-29] MEDS: Celecoxib 200 MG CAPSULE PO ×2 (07:39→20:20)
[2024-05-29] MEDS: cloNIDine HCL 0.1 MG TABLET PO ×3 (07:40→20:20)
[2024-05-29] MEDS: Atorvastatin Calcium 40 MG TABLET PO (07:40)
[2024-05-29] MEDS: methADONE HCl 20 MG/2 ML ORAL.CONC 200 MG PO (07:44)
--- NOTE | 2024-05-29 11:13 | P.PNIM_ITS ---
Subjective Subjective Date of Service: 05/29/24 Review of Systems Follow up acute metabolic encephalopathy, hypoxemic respiratory failure Feeling better today, sleepy Physical Exam 2 Vital Signs: Vital Signs: Last Vital Signs Temp 96.8 F 05/29/24 07:32 Pulse 69 05/29/24 07:32 Resp 16 05/29/24 07:32 BP 136/72 05/29/24 07:32 Pulse Ox 94 05/29/24 07:32 O2 Del Method Room Air 05/29/24 07:32 O2 Flow Rate 4 05/28/24 23:30 BMI result Body Mass Index 49.1 Appearing in no acute distress lung sounds are clear to auscultation heart regular rate rhythm, clear S1, S2 positive bowel sounds, abdomen is soft, nontender neuro patient is alert x3, no focal deficits Objective Data Active Medications Acetaminophen (Acetaminophen 325 Mg Tablet) 650 mg PO Q6H PRN PRN Reason: Pain, Mild 1-3,fever,headache Last Admin: 05/27/24 16:44 Dose: 650 mg Documented By: BRUNA Al Hydroxide/Mg Hydroxide (Magnesium Hydrox/Alum Hydrox 30 Ml Oral.Susp) 30 ml PO QID PRN PRN Reason: gi upset Albuterol Sulfate (Albuterol Sulfate 90 Mcg 8 Gm Inhaler) 2 puff INHALE Q4H PRN PRN Reason: Shortness Of Breath Or Wheezing Atorvastatin Calcium (Atorvastatin Calcium 40 Mg Tablet) 40 mg PO DAILY [facility] Last Admin: 05/29/24 07:40 Dose: 40 mg Documented By: JADIEL Benzocaine (Throat Lozenge, Medicated Lozenge) 1 lozenge MUCOUS MEM Q2H PRN PRN Reason: Sore Throat Calcium Carbonate (Calcium Carbonate 750 Mg Tab.Chew) 750 mg PO QID PRN PRN Reason: Heartburn Celecoxib (Celecoxib 200 Mg Capsule) 200 mg PO BID [facility] Last Admin: 05/29/24 07:39 Dose: 200 mg Documented By: JADIEL Clonidine HCl (Clonidine Hcl 0.1 Mg Tablet) 0.1 mg PO TID [facility]; Protocol Last Admin: 05/29/24 07:40 Dose: 0.1 mg Documented By: JADIEL Clopidogrel Bisulfate (Clopidogrel Bisulfate 75 Mg Tablet) 75 mg PO DAILY [facility] Last Admin: 05/29/24 07:39 Dose: 75 mg Documented By: JADIEL Divalproex Sodium (Divalproex Sodium 500 Mg Tablet.Dr) 500 mg PO BID [facility] Last Admin: 05/29/24 07:39 Dose: 500 mg Documented By: JADIEL Docusate Sodium (Docusate Sodium 100 Mg Capsule) 100 mg PO BID PRN PRN Reason: Constipation Enoxaparin Sodium (Enoxaparin Sodium 40 Mg/0.4 Ml Syringe) 40 mg SUBCUT Q24H [facility] Last Admin: 05/29/24 04:09 Dose: 40 mg Documented By: NATHAN Escitalopram Oxalate (Escitalopram Oxalate 20 Mg Tablet) 20 mg PO DAILY [facility] Last Admin: 05/29/24 07:39 Dose: 20 mg Documented By: JADIEL Gabapentin (Gabapentin 400 Mg Capsule) 800 mg PO BID [facility] Guaifenesin (Guaifenesin La 600 Mg Tab.Er.12h) 1,200 mg PO BID PRN PRN Reason: Cough Hydroxyzine HCl (Hydroxyzine Hcl 50 Mg Tablet) 50 mg PO Q4H PRN PRN Reason: MODERATE TO SEVERE AGITATION Thiamine HCl 100 mg/ Sodium (Chloride) 101 mls @ 202 mls/hr IV DAILY [facility] Last Infusion: 05/29/24 08:57 Dose: Infused Documented By: JADIEL Lactulose (Lactulose 20 Gm/30 Ml Solution) 20 gm PO Q6H [facility] Last Admin: 05/29/24 07:25 Dose: 20 gm Documented By: JADIEL Levofloxacin (Levofloxacin 750 Mg Tablet) 750 mg PO Q24H [facility] Loperamide HCl (Loperamide Hcl 2 Mg Capsule) 2 mg PO QID PRN PRN Reason: Loose Stool Magnesium Hydroxide (Milk Of Magnesia 30 Ml Oral.Susp) 30 ml PO DAILY PRN PRN Reason: Constipation Melatonin (Melatonin 3 Mg Tablet) 6 mg PO BEDTIME PRN PRN Reason: Insomnia Melatonin (Melatonin 3 Mg Tablet) 6 mg PO BEDTIME [facility] Last Admin: 05/28/24 19:44 Dose: 6 mg Documented By: NATHAN Methadone HCl (Methadone Hcl 20 Mg/2 Ml Oral.Conc) 200 mg PO DAILY [facility] Last Admin: 05/29/24 07:44 Dose: 200 mg Documented By: JADIEL Co-signed By: JACOB Nicotine (Nicotine 21 Mg Patch.Td24) 21 mg TRANSDERMA DAILY [facility] Last Admin: 05/29/24 07:40 Dose: Not Given Documented By: JADIEL Non-Admin Reason: Patient Refused Nicotine Polacrilex (Nicotine Polacrilex 2 Mg Gum) 2 mg BUCCAL Q2H PRN PRN Reason: NICOTINE WITHDRAWAL Ondansetron HCl (Ondansetron Hcl 4 Mg/2 Ml Vial) 4 mg IVPUSH Q8H PRN PRN Reason: Nausea and Vomiting Pantoprazole Sodium (Pantoprazole Sodium 20 Mg Tablet.Dr) 40 mg PO DAILY@0630 [facility] Last Admin: 05/29/24 05:12 Dose: 40 mg Documented By: NATHAN Prazosin HCl (Prazosin Hcl 1 Mg Capsule) 2 mg PO BEDTIME [facility]; Protocol Last Admin: 05/28/24 19:43 Dose: 2 mg Documented By: NATHAN Quetiapine Fumarate (Quetiapine Fumarate 50 Mg Tablet) 150 mg PO BEDTIME [facility] Last Admin: 05/28/24 19:44 Dose: 150 mg Documented By: NATHAN Senna (Sennosides 8.6 Mg Tablet) 17.2 mg PO DAILY PRN PRN Reason: Constipation Sodium Chloride (0.9 % Sodium Chloride Flush 3 Ml Syringe) 3 ml IVFLUSH QSHIFT [facility] Last Admin: 05/29/24 07:29 Dose: 3 ml Documented By: JADIEL Labs 05/26/24 05:01 05/26/24 05:01 Microbiology Microbiology Results: Microbiology 05/26/24 Unknown Gram Stain - Final Sputum - Expectorated Sputum Culture - Final Assessment and Plan (1) Hyperammonemia: Status: Acute Plan 43-year-old female with pertinent history of hep C untreated, alcohol use disorder, opioid use disorder, mood disorder who was sent to the emergency department for evaluation of altered mentation. Sleep apnea over night sleep study positive cpap at bedtime and with naps Acute metabolic encephalopathy. Resolved In the setting of hyperammonemia, sepsis and ?PRES (neg MRI) Seen by Neuro> sleep apnea, check head anc neck CTA for ? vascular disease (negative) Acute hypoxemic respiratory failure and sepsis due to right-sided bronchiolitis. Multiple tree-in-bud opacities with halo sign. Consulting pulmonology> following fungal labs, see full note blood culture neg sputum cx neg CT chest> multiple small nodular airspace opacities throughout right lung and left lower lobe suggesting inflammatory versus infectious process with repeat CT today showing improvement continue IV Levaquin Hyperammonemia continue lactulose. Monitor ammonia, trending down No imaging evidence of cirrhosis. No renal disease, GI bleed, UTI. Imaging concerning for ?PRES Blood pressure within normal limits. Seizure precautions. Ordered MRI brain>no PRES. Mood disorder with SI gabapentin decreased to 800 mg BID, seroquel decreased to 150mg daily per patient request Consulted sitter. CARE team once medically stable Hep C, untreated Outpatient follow-up Substance abuse Methadone 200 mg daily Alcohol use disorder Monitor CIWA. Initiating thiamine Morbid obesity. BMI 49.2 Discussed importance of weight management as this may be contributing to worsening of other comorbidities DVT prophylaxis: Mechanical Full code Quality Stroke Does the patient have a stroke diagnosis?: No VTE Prior VTE?: No VTE Risk Level:: Medical - moderate - high VTE Device Contraindication: Treatment Not Indicated VTE Drug Contraindication: N/A - Med Ordered
[2024-05-29] MEDS: ondansetron HCL 4 MG/2 ML VIAL IVPUSH ×2 (12:49→20:32)
[2024-05-29] MEDS: Calcium Carbonate 750 MG TAB.CHEW PO (14:17)
[2024-05-29 14:18] VITALS: BP 121/63
[2024-05-29 15:28] VITALS: BP 120/72; PULSE 66; RESP 20; TEMP 36.2; O2SAT 97
[2024-05-29] MEDS: Melatonin 3 MG TABLET 6 MG PO (20:19)
[2024-05-29] MEDS: Prazosin HCL 1 MG CAPSULE 2 MG PO (20:19)
[2024-05-29] MEDS: QUEtiapine Fumarate 50 MG TABLET 150 MG PO (20:20)
[2024-05-29 23:26] VITALS: BP 133/77; PULSE 75; RESP 17; TEMP 36.2; O2SAT 95
[2024-05-30] MEDS: levoFLOXacin 750 MG TABLET PO (02:10)
[2024-05-30] MEDS: Enoxaparin Sodium 40 MG/0.4 ML SYRINGE SUBCUT (02:10)
[2024-05-30] MEDS: Pantoprazole Sodium 20 MG TABLET.DR 40 MG PO (05:35)
--- NOTE | 2024-05-30 07:00 | CA_ITS ---
Transthoracic Echocardiogram Patient (Last, First, Middle): Alicia Ambriz, Gender: Female Date of : 1980 Age: 43 Procedure Date: 05/30/2024 Procedure Type: Transthoracic Echocardiogram Location: [facility] [place] Height: 154.94 cm Weight: 117.94 kg BSA: 2.11 m2 Heart Rate: 70 bpm BP: 106 / 59 mmHg Frontload Driver: CARMEN Referring MD: Allison Carbajal NP Extruding Press Operator: Reji Bernardo MD Symptoms: ? pulmonary HTN, ? Pickwickian syndrome Study Quality: Adequate w contrast ECG Rhythm: Sinus Conclusions: - 1. Normal LV ejection fraction of 55-60% 2. Normal cardiac valvular Dopplers 3. Normal RV systolic pressure Findings Procedure Information Contrast agent, definity, is being given per protocol without apparent complications. The quality of the study was technically difficult. Left Ventricle Normal left ventricular size, thickness, and systolic function. The visually estimated ejection fraction is between 55-60%. Spectral Doppler is indicative of an impaired relaxation filling pattern. Right Ventricle The right ventricle was not well visualized. Normal right ventricular cavity size. Atria The left atrium is normal in size. Interatrial shunt cannot be excluded. The right atrium was not well visualized. Aortic Valve The aortic valve was not well visualized. There is no aortic valve stenosis. There is no aortic valve regurgitation. Mitral Valve Normal mitral valve structure and function. There is trace mitral valve regurgitation. There is no mitral valve stenosis. Pulmonic Valve The pulmonic valve was not well visualized. Tricuspid Valve Likely normal tricuspid valve structure and function. There is trace tricuspid valve regurgitation. The right ventricular systolic pressure is normal. The right ventricular systolic pressure is 23 mmHg. Normal right atrial pressure. There is no evidence of pulmonary hypertension. Great Vessels The aorta was not well visualized. The pulmonary artery was not well visualized. There is no dilatation of the ascending aorta measuring 2.90 cm. Venous The inferior vena cava is normal in size. Pericardium/Pleural The pericardium was not well visualized. Prior Study Comparison No prior study available for comparison. Measurements 2D Linear Measurements IVSd: 0.89 0.6-0.9/0.6-1.0 cm LVIDd: 5.03 3.9-5.3/4.2-5.9 cm LVIDd Index: 2.38 2.4-3.2/2.2-3.1 cm/m2 LVIDs: 3.19 2.0-3.6 cm LVPWd: 0.96 0.7-1.1 cm LA Diam: 3.20 2.7-3.8/3.0-4.0 cm LAIDs Index: 1.52 1.5-2.3 cm/m2 LV Mass: 206.92 67-162/88-224 g LV Mass Index: 98.07 43-95/49-115 g/m2 LVOT Diam: 2.00 3.0+(-)1.3 cm 2D Systolic Function EF 4C: 56.90 >55% EF 2C: 59.50 >55% EF BiP: 58.40 >55% Mitral Valve MV Pk E: 0.87 MV PK A: 0.71 MV Decel Time: 201.00 E/A: 1.20 E'Lateral: 13.60 E'Medial: 9.90 E/E' Med: 8.70 E/E' Lat: 6.40 PHT: 59.00 MVA PHT: 3.73 Decel [place]: 4.30 Aortic Valve AoV Pk Bin: 1.44 AoV Pk Grad: 8.00 THELMA: 1.95 LVOT LVOT Pk Bin: 0.89 LVOT Mn Bin: 0.61 LVOT VTI: 0.17 LVOT Pk Grad: 3.00 LVOT Mn Grad: 2.00 LVOT Diam: 2.00 LVOT Area: 3.14 Diastolic Function MV Pk E: 0.87 MV Pk A: 0.71 E/A: 1.20 E'Medial: 9.90 E/E' Med: 8.70 E' Laterial: 13.60 E/E' Lat: 6.40 Right Ventricle TAPSE (mm): 25.90 TVS' Bin: 11.20 Tricuspid Valve TR Pk Bin: 1.94 TR Pk Grad: 15.00 RA Press: 8.00 RVSP: 23.00 Great Vessels Aorta Sinus of Valsalva: 2.80 2.0-3.5 cm Ao Asc: 2.90 2.1-3.4 cm Pulmonary Valve PV Pk Bin: 1.05 Peak PV Grad: 4.00 Updated in Other Vendor System with Status of Final Reji Bernardo MD electronically signed on 05/30/2024 1:57:11 PM with status of Final
[2024-05-30 07:25] VITALS: BP 106/59; PULSE 66; RESP 20; TEMP 37.1; O2SAT 100
--- NOTE | 2024-05-30 08:45 | P.PNIM_ITS ---
Subjective Subjective Date of Service: 05/30/24 Review of Systems Follow up acute metabolic encephalopathy, hypoxemic respiratory failure Feeling better today, sleepy Physical Exam 2 Vital Signs: Vital Signs: Last Vital Signs Temp 98.8 F 05/30/24 07:25 Pulse 66 05/30/24 07:25 Resp 20 05/30/24 07:25 BP 106/59 L 05/30/24 07:25 Pulse Ox 100 05/30/24 07:25 O2 Del Method Nasal Cannula 05/30/24 07:25 O2 Flow Rate 4 05/30/24 07:25 BMI result Body Mass Index 49.1 Appearing in no acute distress lung sounds are clear to auscultation heart regular rate rhythm, clear S1, S2 positive bowel sounds, abdomen is soft, nontender neuro patient is alert x3, no focal deficits Objective Data Active Medications Acetaminophen (Acetaminophen 325 Mg Tablet) 650 mg PO Q6H PRN PRN Reason: Pain, Mild 1-3,fever,headache Last Admin: 05/27/24 16:44 Dose: 650 mg Documented By: BRUNA Al Hydroxide/Mg Hydroxide (Magnesium Hydrox/Alum Hydrox 30 Ml Oral.Susp) 30 ml PO QID PRN PRN Reason: gi upset Albuterol Sulfate (Albuterol Sulfate 90 Mcg 8 Gm Inhaler) 2 puff INHALE Q4H PRN PRN Reason: Shortness Of Breath Or Wheezing Atorvastatin Calcium (Atorvastatin Calcium 40 Mg Tablet) 40 mg PO DAILY [facility] Last Admin: 05/29/24 07:40 Dose: 40 mg Documented By: JADIEL Benzocaine (Throat Lozenge, Medicated Lozenge) 1 lozenge MUCOUS MEM Q2H PRN PRN Reason: Sore Throat Calcium Carbonate (Calcium Carbonate 750 Mg Tab.Chew) 750 mg PO QID PRN PRN Reason: Heartburn Last Admin: 05/29/24 14:17 Dose: 750 mg Documented By: JADIEL Comments: pt requested it for heartburn Celecoxib (Celecoxib 200 Mg Capsule) 200 mg PO BID [facility] Last Admin: 05/29/24 20:20 Dose: 200 mg Documented By: ALEXY Clonidine HCl (Clonidine Hcl 0.1 Mg Tablet) 0.1 mg PO TID [facility]; Protocol Last Admin: 05/29/24 20:20 Dose: 0.1 mg Documented By: ALEXY Clopidogrel Bisulfate (Clopidogrel Bisulfate 75 Mg Tablet) 75 mg PO DAILY [facility] Last Admin: 05/29/24 07:39 Dose: 75 mg Documented By: JADIEL Divalproex Sodium (Divalproex Sodium 500 Mg Tablet.Dr) 500 mg PO BID [facility] Last Admin: 05/29/24 20:19 Dose: 500 mg Documented By: ALEXY Docusate Sodium (Docusate Sodium 100 Mg Capsule) 100 mg PO BID PRN PRN Reason: Constipation Enoxaparin Sodium (Enoxaparin Sodium 40 Mg/0.4 Ml Syringe) 40 mg SUBCUT Q24H [facility] Last Admin: 05/30/24 02:10 Dose: 40 mg Documented By: ALEXY Escitalopram Oxalate (Escitalopram Oxalate 20 Mg Tablet) 20 mg PO DAILY [facility] Last Admin: 05/29/24 07:39 Dose: 20 mg Documented By: JADIEL Gabapentin (Gabapentin 400 Mg Capsule) 800 mg PO BID [facility] Guaifenesin (Guaifenesin La 600 Mg Tab.Er.12h) 1,200 mg PO BID PRN PRN Reason: Cough Hydroxyzine HCl (Hydroxyzine Hcl 50 Mg Tablet) 50 mg PO Q4H PRN PRN Reason: MODERATE TO SEVERE AGITATION Thiamine HCl 100 mg/ Sodium (Chloride) 101 mls @ 202 mls/hr IV DAILY [facility] Last Infusion: 05/29/24 08:57 Dose: Infused Documented By: JADIEL Lactulose (Lactulose 20 Gm/30 Ml Solution) 20 gm PO Q6H [facility] Last Admin: 05/30/24 02:13 Dose: Not Given Documented By: ALEXY Non-Admin Reason: Patient Refused Levofloxacin (Levofloxacin 750 Mg Tablet) 750 mg PO Q24H [facility] Last Admin: 05/30/24 02:10 Dose: 750 mg Documented By: ALEXY Loperamide HCl (Loperamide Hcl 2 Mg Capsule) 2 mg PO QID PRN PRN Reason: Loose Stool Magnesium Hydroxide (Milk Of Magnesia 30 Ml Oral.Susp) 30 ml PO DAILY PRN PRN Reason: Constipation Melatonin (Melatonin 3 Mg Tablet) 6 mg PO BEDTIME PRN PRN Reason: Insomnia Melatonin (Melatonin 3 Mg Tablet) 6 mg PO BEDTIME [facility] Last Admin: 05/29/24 20:19 Dose: 6 mg Documented By: ALEXY Methadone HCl (Methadone Hcl 20 Mg/2 Ml Oral.Conc) 200 mg PO DAILY [facility] Last Admin: 05/29/24 07:44 Dose: 200 mg Documented By: JADIEL Co-signed By: JACOB Nicotine (Nicotine 21 Mg Patch.Td24) 21 mg TRANSDERMA DAILY [facility] Last Admin: 05/29/24 07:40 Dose: Not Given Documented By: JADIEL Non-Admin Reason: Patient Refused Nicotine Polacrilex (Nicotine Polacrilex 2 Mg Gum) 2 mg BUCCAL Q2H PRN PRN Reason: NICOTINE WITHDRAWAL Ondansetron HCl (Ondansetron Hcl 4 Mg/2 Ml Vial) 4 mg IVPUSH Q8H PRN PRN Reason: Nausea and Vomiting Last Admin: 05/29/24 20:32 Dose: 4 mg Documented By: ALEXY Pantoprazole Sodium (Pantoprazole Sodium 20 Mg Tablet.Dr) 40 mg PO DAILY@0630 [facility] Last Admin: 05/30/24 05:35 Dose: 40 mg Documented By: ALEXY Prazosin HCl (Prazosin Hcl 1 Mg Capsule) 2 mg PO BEDTIME [facility]; Protocol Last Admin: 05/29/24 20:19 Dose: 2 mg Documented By: ALEXY Quetiapine Fumarate (Quetiapine Fumarate 50 Mg Tablet) 150 mg PO BEDTIME [facility] Last Admin: 05/29/24 20:20 Dose: 150 mg Documented By: ALEXY Senna (Sennosides 8.6 Mg Tablet) 17.2 mg PO DAILY PRN PRN Reason: Constipation Sodium Chloride (0.9 % Sodium Chloride Flush 3 Ml Syringe) 3 ml IVFLUSH QSHIFT [facility] Last Admin: 05/29/24 20:21 Dose: 3 ml Documented By: ALEXY Labs 05/26/24 05:01 05/26/24 05:01 Assessment and Plan (1) Hyperammonemia: Status: Acute Plan 43-year-old female with pertinent history of hep C untreated, alcohol use disorder, opioid use disorder, mood disorder who was sent to the emergency department for evaluation of altered mentation. Acute hypoxemic respiratory failure and sepsis due to right-sided bronchiolitis. and likely pulm htn from THOMAS Multiple tree-in-bud opacities with halo sign. blood culture neg sputum cx neg CT chest> multiple small nodular airspace opacities throughout right lung and left lower lobe suggesting inflammatory versus infectious process, repeat CT today showing improvement continue Levaquin echo to assess for pulm htn wean off oxygen as able but will likely need some oxygen as well as cpap at bedtime Sleep apnea over night sleep study positive cpap at bedtime and with naps will need o/p titration study Acute metabolic encephalopathy. Resolved In the setting of hyperammonemia, sepsis and ?PRES (neg MRI) Seen by Neuro> sleep apnea, check head anc neck CTA for ? vascular disease (negative) Hyperammonemia continue lactulose. Monitor ammonia, trending down No imaging evidence of cirrhosis. No renal disease, GI bleed, UTI. Imaging concerning for ?PRES Blood pressure within normal limits. Seizure precautions. Ordered MRI brain>no PRES. Mood disorder with SI gabapentin decreased to 800 mg BID, seroquel decreased to 150mg daily per patient request Consulted sitter. CARE team once medically stable Hep C, untreated Outpatient follow-up Substance abuse Methadone 200 mg daily Alcohol use disorder Monitor CIWA. Initiating thiamine Morbid obesity. BMI 49.2 Discussed importance of weight management as this may be contributing to worsening of other comorbidities DVT prophylaxis: Mechanical Full code Quality Stroke Does the patient have a stroke diagnosis?: No VTE Prior VTE?: No VTE Risk Level:: Medical - moderate - high VTE Device Contraindication: Treatment Not Indicated VTE Drug Contraindication: N/A - Med Ordered
--- NOTE | 2024-05-30 08:58 | P.PNPL_ITS ---
Subjective Subjective Date of Service: 05/30/24 Interval history: The patient is seen on his own. Overall she is feeling well. Mentation is better. She had a repeat CT scan of the chest demonstrating interval improvement of the tree-in-bud and inflammatory nodules. The blood work that was requested for her infectious disease workup was not able to be completed. But, right now she is doing better. She is currently on Levaquin. The patient also had a sleep study demonstrating very severe sleep apnea with the AHI of 72 and significant hypoxia. She needs to have a titration study. But for now will start her on APAP with oxygen. Once she is discharged we can look into a in-lab titration study to see if she will benefit from any other modality. The patient had a blood gas demonstrating some evidence of hypercarbia. Likely has hypoventilation syndrome which predisposed her to likely pulmonary hypertension. Will request an echocardiogram at this time. Objective Data Labs 05/26/24 05:01 05/26/24 05:01 Microbiology Microbiology Results: Microbiology 05/26/24 Unknown Sputum - Expectorated Gram Stain - Final 05/26/24 Unknown Sputum - Expectorated Sputum Culture - Final 05/26/24 01:45 Blood - Venous Blood Culture - Preliminary No growth after 48 hours. 05/26/24 01:45 Blood - Venous Blood Culture - Preliminary No growth after 48 hours. Review of Systems Constitutional: Reports daytime sleepiness and Reports fatigue Reports system reviewed and no additional complaints, except as documented Cardiovascular: Denies chest pain and Denies dyspnea on exertion Respiratory: Reports cough, Denies excessive phlegm production, Denies dyspnea on exertion and Denies wheezing Gastrointestinal: Denies abdominal pain Musculoskeletal: Reports no additional musculoskeletal complaints Psychiatric: Reports as per HPI Endocrine: Reports fatigue Allergic/Immunologic: Denies wheezing Physical Exam 2 Vital Signs: Vital Signs: Last Vital Signs Temp 98.8 F 05/30/24 07:25 Pulse 66 05/30/24 07:25 Resp 20 05/30/24 07:25 BP 106/59 L 05/30/24 07:25 Pulse Ox 100 05/30/24 07:25 O2 Del Method Nasal Cannula 05/30/24 07:25 O2 Flow Rate 4 05/30/24 07:25 BMI result Body Mass Index 49.1 Const: General: no acute distress and awake Nutritional Appearance: obese HEENT: Head: Yes normocephalic Eyes: Sclerae: sclerae normal EOM: EOMs intact bilaterally Neck: Neck: Yes trachea midline and Yes supple Chest: Chest palpation & inspection: normal inspection of the chest Resp: Effort & Inspection: normal respiratory effort and no respiratory distress Auscultation: clear to auscultation bilaterally Cardio: Rate: regular rate Rhythm: regular rhythm Heart sounds: S1 normal heart sound present and S2 normal heart sound present GI: Palpation (GI): Soft to palpation and Other GI palpation findings present ( Nontender) Auscultation: normal bowel sounds Skin: General skin exam: no rashes or lesions noted Extrem: General: Yes no pedal edema, No clubbing and No cyanosis Procedures Date of Service Date of Service: 05/30/24 Assessment and Plan Assessment and plan (1) Asthma: Status: Acute (2) Bronchiolitis: Status: Acute (3) THOMAS (obstructive sleep apnea): Status: Acute (4) Obesity hypoventilation syndrome: Status: Acute (5) Hypoxia: Status: Acute Plan start APAP at night with oxygen Complete 8 days of Levaquin ECHO Supplemental oxygen to keep pox>89% will need an outpt inlab PSG titration study ?ivaps Time Spent With Patient Time: Total time managing care of this patient today ____ minutes. Progress Note: Quality Stroke Does the patient have a stroke diagnosis?: No
[2024-05-30] MEDS: Divalproex Sodium 500 MG TABLET.DR PO ×2 (10:39→20:20)
[2024-05-30] MEDS: Escitalopram Oxalate 20 MG TABLET PO (10:39)
[2024-05-30] MEDS: Celecoxib 200 MG CAPSULE PO ×2 (10:40→20:19)
[2024-05-30] MEDS: Clopidogrel Bisulfate 75 MG TABLET PO (10:40)
[2024-05-30] MEDS: Atorvastatin Calcium 40 MG TABLET PO (10:40)
[2024-05-30] MEDS: cloNIDine HCL 0.1 MG TABLET PO ×3 (10:41→20:20)
[2024-05-30] MEDS: Thiamine HCL 100 MG in 0.9 % Sodium Chloride 100 ML 202 MG IV (10:42)
[2024-05-30] MEDS: Lactulose 20 GM/30 ML SOLUTION PO ×3 (10:43→20:19)
[2024-05-30] MEDS: methADONE HCl 20 MG/2 ML ORAL.CONC 200 MG PO (10:44)
[2024-05-30] MEDS: 0.9 % Sodium Chloride Flush 3 ML SYRINGE IVFLUSH ×3 (10:45→20:20)
--- NOTE | 2024-05-30 11:20 | PC.RT ---
Pt found on RA. Pt states she took off her O2 20 minutes ago. Pt states she feels fine without it. O2 SATs 89-90% on RA. Pt states she is agreeable to CPAP tonight.
[2024-05-30 14:22] VITALS: BP 114/65
--- NOTE | 2024-05-30 14:32 | MHC.CM.PN ---
PT GAVE PERMISSION FOR CM TO SPEAK WITH CHIEF MEDICAL PHYSICIST SELENA MANN.([phone]) PER SELENA, PT WILL HAVE A BED AT [facility] AT [address] IN [place] ON 05/31, THEY ARE HOLDING A BED FOR HER AND ARE AWARE OF HER 02 NEEDS AND SLEEP APNEA (NEED FOR C PAP) PER SELENA, PT WILL HAVE A 9 AM PHONE APPOINTMENT WITH [facility] 05/31 AND WILL THEN DC AFTER. CHIEF MEDICAL PHYSICIST WILL TRANSPORT. R/T UPDATED AND ADDRESS OF RESIDENTIAL PROGRAM PROVIDED FOR DELIVERY OF RESPIRATORY ITEMS. CM WILL CONTINUE TO FOLLOW.
[2024-05-30] MEDS: ondansetron HCL 4 MG/2 ML VIAL IVPUSH (14:49)
[2024-05-30 14:58] VITALS: BP 113/60; PULSE 66; RESP 18; TEMP 36.2; O2SAT 93
--- NOTE | 2024-05-30 15:14 | PM.DS ---
DS: Providers Provider Date of Service: 06/03/24 <CHRISTIE Dyer - Last Filed: 06/03/24 11:52> Date of admission: 05/26/24 02:12 <Allison Carbajal NP - Last Filed: 05/30/24 15:48> Date of discharge: 06/03/24 <CHRISTIE Dyer - Last Filed: 06/03/24 11:52> Primary care physician: CHRISTIE Lino <Allison Carbajal NP - Last Filed: 05/30/24 15:48> Consults: 05/26/24 01:49 Consult for Sitter Routine Reason for consultation: SI 05/26/24 02:24 Consult to Neurology Routine Consulting Provider: [facility] Reason for consultation: ?PRES Consult to Pulmonology Routine Consulting Provider: [facility] Reason for consultation: Right-sided bronchiolitis with halo sign 05/30/24 06:53 Consult to Pulmonology Routine Consulting Provider: [facility] Reason for consultation: THOMAS, hypoxia 05/30/24 08:44 Consult to Care Team Routine Comment: Reason for consultation: medically clear <Allison Carbajal NP - Last Filed: 05/30/24 15:48> DS: Diagnosis Discharge Diagnosis (1) Asthma: Status: Acute <Allison Carbajal NP - Last Filed: 05/30/24 15:48> (2) Bronchiolitis: Status: Acute <Allison Carbajal NP - Last Filed: 05/30/24 15:48> (3) THOMAS (obstructive sleep apnea): Status: Acute <Allison Carbajal NP - Last Filed: 05/30/24 15:48> (4) Obesity hypoventilation syndrome: Status: Acute <Allison Carbajal NP - Last Filed: 05/30/24 15:48> (5) Hypoxia: Status: Acute <Allison Carbajal NP - Last Filed: 05/30/24 15:48> DS: Summary Hospital Course Hospital Course: History and physical as per admitting provider. This is a 43-year-old female with pertinent history of hep C untreated, alcohol use disorder, opioid use disorder, mood disorder who was sent to the emergency department for evaluation of altered mentation. Patient was sent from [facility] for lethargy and drowsiness. Patient is at [facility] for suicidal ideation. Patient awakens to verbal stimulus but falls back asleep mid conversation. States she is sleeping a lot on the day of presentation and hence she was sent to the hospital. Patient does endorse productive cough that has been ongoing for a while. Also complains of headache. No history of high blood pressure. States she has had couple of seizures previously but they were due to alcohol withdrawal. Does not know if she has a history of cirrhosis. Is legally blind in the right eye. Unclear if vision changes in the left eye. Unable to obtain review of systems. Denies recent alcohol use or illicit drug use. In the emergency department, imaging with right-sided bronchiolitis. CT brain with ?PRES. Also found to have leukocytosis and requiring 2 L supplemental oxygen. Was given IV fluids and empiric IV Zosyn in the ER. Ammonia found to be elevated and patient was given lactulose. 43-year-old woman treated for acute hypoxemic respiratory failure secondary to right-sided bronchiolitis, obstructive sleep apnea. Imaging showing multiple tree-in-bud opacities with halo sign, left lower lobe inflammatory versus infectious process. Treated with IV Levaquin. Echocardiogram negative for pulmonary hypertension, essentially normal. Patient weaned off oxygen but will need for CPAP at bedtime. Patient had an overnight sleep study found to be positive for THOMAS, pulmonary recommends returning to sleep lab for overnight titration testing. Patient initially found to have acute metabolic encephalopathy which after treatment for hyperammonemia which be caused by depakote, treated effectively with lactulose. If patient is non-compliant with lactulose depakote dose may need to be reduced or discontinued all together. Seen and evaluated by Neurology who recommended checking for vascular disease, CTA was negative. Patient denies history of suicide ideation and initially came in having a sitter. She was seen evaluated by care team on 05/30/2024 and was not found to require inpatient placement for psychiatric care. The patient was supposed to be discharged to her aunt's house, she is unable to mushroom picker her CPAP unit until tomorrow. She was advised to stay overnight in the hospital to prevent recurrent encephalopathy/respiratory failure.However she elected to leave against medical advise, she was awake alert and able to repeat back the risks - she says she will use her aunt's cpap machine. It was discussed that sharing machines is not advised and would also put her aunt at risk. She understands and does not want to stay in the hospital overnight. Mood disorder gabapentin decreased to 600 mg BID, seroquel decreased to 150mg daily to decrease risk of oversedation Hep C, untreated Outpatient follow-up Substance abuse Methadone 200 mg daily Alcohol use disorder Monitored with CIWA no withdrawal symptoms during hospitalization. Morbid obesity. BMI 49.2 Discussed importance of weight management as this may be contributing to worsening of other comorbidities <Allison Carbajal NP - Last Filed: 05/30/24 15:48> Time Attestation Discharge Coordination Time (in mins): 36 <CHRISTIE Dyer - Last Filed: 06/03/24 11:52> Quality: Safe Use of Opioids Does Pt have an Active Cancer Diagnosis on the Problem List?: No <CHRISTIE Dyer - Last Filed: 06/03/24 11:52> Quality: Stroke Does the patient have a stroke diagnosis?: No <CHRISTIE Dyer - Last Filed: 06/03/24 11:52> Physical Exam Vital Signs: Vital Signs: Last Vital Signs Temp 97.2 F 05/30/24 14:58 Pulse 66 05/30/24 14:58 Resp 18 05/30/24 14:58 BP 113/60 05/30/24 14:58 Pulse Ox 93 05/30/24 14:58 O2 Del Method Room Air 05/30/24 14:58 O2 Flow Rate 4 05/30/24 07:25 BMI result Body Mass Index 49.1 <Allison Carbajal NP - Last Filed: 05/30/24 15:48> Const: General: awake and Physically active <CHRISTIE Dyer - Last Filed: 06/03/24 11:52> Nutritional Appearance: obese <CHRISTIE Dyer - Last Filed: 06/03/24 11:52> Orientation/consciousness: patient oriented x3 <CHRISTIE Dyer - Last Filed: 06/03/24 11:52> Neuro: General: patient oriented x3 <CHRISTIE Dyer Last Filed: 06/03/24 11:52> DS: Data Data Completed and Pending Labs on day of discharge: Preliminary micro results at discharge 05/26/24 01:45 Blood Culture - Preliminary Blood - Venous No growth after 48 hours. 05/26/24 01:45 Blood Culture - Preliminary Blood - Venous No growth after 48 hours. <Allison Carbajal NP - Last Filed: 05/30/24 15:48> Discharge Plan Discharge Patient Disposition: Left Against Medical Advice <Allison Carbajal NP - Last Filed: 05/30/24 15:48> Discharge Diagnosis: Acute hypoxemic respiratory failure Sepsis Obstructive sleep apnea Pneumonia Acute metabolic encephalopathy Hyperammonemia <Allison Carbajal NP - Last Filed: 05/30/24 15:48> Acute hypoxemic respiratory failure Sepsis Obstructive sleep apnea Pneumonia Acute metabolic encephalopathy Hyperammonemia <CHRISTIE Dyer - Last Filed: 06/03/24 11:52> Referrals: Dary Maradiaga PA [Primary Care Provider] - 1 Week <Allison Carbajal NP - Last Filed: 05/30/24 15:48> Discharge Medications: New quetiapine 50 mg Tablet 150 mg PO BEDTIME Qty: 90 0RF gabapentin 400 mg Capsule 800 mg PO BID Qty: 120 0RF Continued celecoxib 200 mg capsule 200 mg PO BID atorvastatin 40 mg tablet 40 mg PO DAILY clonidine HCl 0.1 mg tablet 0.1 mg PO TID clopidogrel 75 mg tablet 75 mg PO DAILY pantoprazole 40 mg tablet,delayed release (DR/EC) 40 mg PO DAILY@0630 albuterol sulfate [Ventolin HFA] 90 mcg/actuation HFA aerosol inhaler 2 puff INHALATION Q4-6H PRN (Reason: Shortness Of Breath Or Wheezing) prazosin 2 mg capsule 2 mg PO BEDTIME nicotine 7 mg/24 hr patch 24 hour 1 patch transdermal DAILY escitalopram oxalate 20 mg tablet 20 mg PO DAILY melatonin 5 mg tablet 5 mg PO BEDTIME docusate sodium [Colace] 100 mg Capsule 100 mg PO BID PRN (Reason: Constipation) Rx Instructions: HOLD FOR LOOSE STOOLS calcium carbonate [Tums 500] 500 mg calcium (1,250 mg) Tablet,Chewable 500 mg PO QID PRN (Reason: Heartburn) alum-mag hydroxide-simeth 200-200-20 mg/5 mL Suspension 30 ml PO QID PRN (Reason: gi upset) benzocaine-menthol 15-3.6 mg Lozenge 1 flor MUCOUS MEMBRANE Q2H PRN (Reason: Sore Throat) guaifenesin 600 mg Tablet Extended Release 12hr 1,200 mg PO BID PRN (Reason: Cough) loperamide 2 mg Capsule 2 mg PO QID PRN (Reason: Loose Stool) nicotine (polacrilex) 2 mg Gum 2 mg BUCCAL Q2H PRN (Reason: NICOTINE WITHDRAWAL) hydroxyzine pamoate [Vistaril] 50 mg Capsule 50 mg PO Q4H PRN (Reason: MODERATE TO SEVERE AGITATION) ondansetron 4 mg Tablet,Disintegrating 4 mg PO Q6H PRN (Reason: NAUSEA/VOMITING) sennosides [senna] 8.6 mg Tablet 17.2 mg PO DAILY PRN (Reason: Constipation) Rx Instructions: HOLD FOR LOOSE STOOLS divalproex 500 mg Tablet,Delayed Release (Dr/Ec) 500 mg PO BID methadone [Methadone Intensol] 10 mg/mL Concentrate 200 mg PO DAILY Discontinued quetiapine 300 mg tablet 300 mg PO BEDTIME gabapentin 800 mg tablet 800 mg PO TID <Allison Carbajal NP - Last Filed: 05/30/24 15:48> Discharge Orders: Discharge Order (Routine); Ordered 06/03/24 Ordered By: Megan Waller <Allison Carbajal NP - Last Filed: 05/30/24 15:48> Diet: Advance to usual diet <Allison Carbajal NP - Last Filed: 05/30/24 15:48> Advance to usual diet <CHRISTIE Dyer - Last Filed: 06/03/24 11:52> Activity on Discharge: As tolerated <Allison Carbajal NP - Last Filed: 05/30/24 15:48> As tolerated <CHRISTIE Dyer - Last Filed: 06/03/24 11:52> Print Language: Bolivian <Allison Carbajal NP - Last Filed: 05/30/24 15:48> Care Plan Goals: Use CPAP at bedtime and with naps, connect oxygen to CPAP machine for bedtime <Allison Carbajal NP - Last Filed: 05/30/24 15:48> Health Concerns: Acute hypoxemic respiratory failure Sepsis Obstructive sleep apnea Pneumonia Acute metabolic encephalopathy Hyperammonemia <Allison Carbajal NP - Last Filed: 05/30/24 15:48> Plan of Treatment: Follow-up with primary care provider as needed Take all medications as prescribed <Allison Carbajal [employer] - Last Filed: 05/30/24 15:48> Assessment: See discharge summary <Allison Carbajal NP - Last Filed: 05/30/24 15:48>
[2024-05-30 19:28] LABS: Fungitell <31 pg/mL (<60); Fungitell 1,3 beta glucan Negative
[2024-05-30] MEDS: QUEtiapine Fumarate 50 MG TABLET 150 MG PO (20:19)
[2024-05-30] MEDS: Melatonin 3 MG TABLET 6 MG PO (20:19)
[2024-05-30 20:20] VITALS: BP 111/63
[2024-05-30] MEDS: Prazosin HCL 1 MG CAPSULE 2 MG PO (20:20)
[2024-05-30 20:53] VITALS: RESP 16; O2SAT 99
[2024-05-30 23:52] VITALS: BP 143/65; PULSE 67; RESP 16; TEMP 36.4; O2SAT 92
[2024-05-31] MEDS: levoFLOXacin 750 MG TABLET PO (02:40)
[2024-05-31] MEDS: Lactulose 20 GM/30 ML SOLUTION PO ×3 (02:40→20:02)
[2024-05-31] MEDS: Enoxaparin Sodium 40 MG/0.4 ML SYRINGE SUBCUT (02:40)
[2024-05-31] MEDS: Pantoprazole Sodium 20 MG TABLET.DR 40 MG PO (05:39)
[2024-05-31 07:49] VITALS: BP 106/60; PULSE 67; RESP 16; TEMP 36.1; O2SAT 97
[2024-05-31] MEDS: Escitalopram Oxalate 20 MG TABLET PO (09:19)
[2024-05-31] MEDS: Celecoxib 200 MG CAPSULE PO ×2 (09:20→20:03)
[2024-05-31] MEDS: Clopidogrel Bisulfate 75 MG TABLET PO (09:20)
[2024-05-31] MEDS: Atorvastatin Calcium 40 MG TABLET PO (09:20)
[2024-05-31] MEDS: cloNIDine HCL 0.1 MG TABLET PO ×3 (09:21→20:04)
[2024-05-31] MEDS: Divalproex Sodium 500 MG TABLET.DR PO ×2 (09:21→20:02)
[2024-05-31] MEDS: methADONE HCl 20 MG/2 ML ORAL.CONC 200 MG PO (09:24)
[2024-05-31] MEDS: 0.9 % Sodium Chloride Flush 3 ML SYRINGE IVFLUSH ×3 (09:27→20:04)
--- NOTE | 2024-05-31 12:45 | PM.PNPUL ---
Subjective Subjective Date of Service: 05/31/24 Interval history: The patient was seen on exam. She did use CPAP last night. She did tolerated. When she is discharged should be able to get any CPAP through a local [employer] company. She should also follow-up with Pulmonary in order to have a titration study. Objective Data Labs 05/26/24 05:01 05/26/24 05:01 Labs: Laboratory Results - last 24 hr 05/26/24 05:01 Beta-(1,3)-D-Glucan <31 B-(1,3)-D-Glucan Intrp Negative Microbiology Microbiology Results: Microbiology 05/26/24 01:45 Blood - Venous Blood Culture - Final No growth after 5 days. 05/26/24 01:45 Blood - Venous Blood Culture - Final No growth after 5 days. 05/26/24 Unknown Sputum - Expectorated Gram Stain - Final 05/26/24 Unknown Sputum - Expectorated Sputum Culture - Final Review of Systems Constitutional: Reports daytime sleepiness and Reports fatigue Reports system reviewed and no additional complaints, except as documented Cardiovascular: Denies chest pain and Denies dyspnea on exertion Respiratory: Reports cough, Denies excessive phlegm production, Denies dyspnea on exertion and Denies wheezing Gastrointestinal: Denies abdominal pain Musculoskeletal: Reports no additional musculoskeletal complaints Psychiatric: Reports as per HPI Endocrine: Reports fatigue Allergic/Immunologic: Denies wheezing Physical Exam Vital Signs: Vital Signs: Last Vital Signs Temp 97.0 F 05/31/24 07:49 Pulse 67 05/31/24 07:49 Resp 16 05/31/24 07:49 BP 106/60 05/31/24 07:49 Pulse Ox 97 05/31/24 07:49 O2 Del Method Room Air 05/31/24 07:49 O2 Flow Rate 4 05/30/24 07:25 BMI result Body Mass Index 49.1 Const: General: no acute distress and awake Nutritional Appearance: obese HEENT: Head: Yes normocephalic Eyes: Sclerae: sclerae normal EOM: EOMs intact bilaterally Neck: Neck: Yes trachea midline and Yes supple Chest: Chest palpation & inspection: normal inspection of the chest Resp: Effort & Inspection: normal respiratory effort and no respiratory distress Auscultation: clear to auscultation bilaterally Cardio: Rate: regular rate Rhythm: regular rhythm Heart sounds: S1 normal heart sound present and S2 normal heart sound present GI: Palpation (GI): Soft to palpation and Other GI palpation findings present ( Nontender) Auscultation: normal bowel sounds Skin: General skin exam: no rashes or lesions noted Extrem: General: Yes no pedal edema, No clubbing and No cyanosis Procedures Date of Service Date of Service: 05/31/24 Assessment and Plan Assessment and plan (1) Asthma: Status: Acute (2) Bronchiolitis: Status: Acute (3) THOMAS (obstructive sleep apnea): Status: Acute (4) Obesity hypoventilation syndrome: Status: Acute (5) Hypoxia: Status: Acute Plan continue APAP at night on RA. Please request APAP 6-16 from local [employer] company. F/U with Pulmonary for a PSG titration study ?iVAPS Complete 8 days of Levaquin Wean off oxygen to keep pox>89% Time Spent With Patient Time: Total time managing care of this patient today ____ minutes. Progress Note: Quality Stroke Does the patient have a stroke diagnosis?: No
[2024-05-31] MEDS: ondansetron HCL 4 MG/2 ML VIAL IVPUSH (15:06)
--- NOTE | 2024-05-31 15:11 | MHC.CM.PN ---
PT WAS DENIED ADMISSION BY [facility] DUE TO HER MEDICAL NEEDS. CM CALLED MULTIPLE SHELTERS THAT ARE FULL. MEDICAL RESPITE [facility] [place] FAXED THIS CM AN APPLICATION TO FILL OUT FOR POSSIBLE ADMISSION TOMORROW. APPLICATION COMPLETED WITH PT AND FAXED TO [employer] AT [phone]. CM WILL FOLLOW UP IN AM ON STATUS. PT'S HIDE BUFFER SELENA IS AWARE OF PLAN.
--- NOTE | 2024-05-31 15:57 | P.PNIM_ITS ---
Subjective Subjective Date of Service: 05/31/24 Interval History: Seen and examined this morning Follow-up for THOMAS, encephalopathy, respiratory failure awake, alert on room air. Denies shortness of breath Review of Systems Review of Systems: Yes all other systems are reviewed and are negative Constitutional Constitutional: Denies chills and Denies fever(s) Cardiovascular Cardiovascular: Denies chest pain, Denies palpitations and Denies dyspnea Respiratory Respiratory: Denies cough and Denies dyspnea Endocrine Endocrine: Denies palpitations Physical Exam 2 Vital Signs: Vital Signs: Last Vital Signs Temp 97.0 F 05/31/24 07:49 Pulse 67 05/31/24 07:49 Resp 16 05/31/24 07:49 BP 106/60 05/31/24 07:49 Pulse Ox 97 05/31/24 07:49 O2 Del Method Room Air 05/31/24 07:49 O2 Flow Rate 4 05/30/24 07:25 BMI result Body Mass Index 49.1 Const: General: cooperative, comfortable, no acute distress, alert and awake Nutritional Appearance: obese Orientation/consciousness: patient oriented x3 Resp: Effort & Inspection: normal respiratory effort, able to speak in complete sentences, no respiratory distress and no use of accessory muscles Cardio: Rate: regular rate GI: Palpation (GI): Soft to palpation and nontender Neuro: General: patient oriented x3, moves all extremities and CN's II-XI intact bilaterally Objective Data Active Medications Acetaminophen (Acetaminophen 325 Mg Tablet) 650 mg PO Q6H PRN PRN Reason: Pain, Mild 1-3,fever,headache Last Admin: 05/27/24 16:44 Dose: 650 mg Documented By: BRUNA Al Hydroxide/Mg Hydroxide (Magnesium Hydrox/Alum Hydrox 30 Ml Oral.Susp) 30 ml PO QID PRN PRN Reason: gi upset Albuterol Sulfate (Albuterol Sulfate 90 Mcg 8 Gm Inhaler) 2 puff INHALE Q4H PRN PRN Reason: Shortness Of Breath Or Wheezing Atorvastatin Calcium (Atorvastatin Calcium 40 Mg Tablet) 40 mg PO DAILY [facility] Last Admin: 05/31/24 09:20 Dose: 40 mg Documented By: EVER Benzocaine (Throat Lozenge, Medicated Lozenge) 1 lozenge MUCOUS MEM Q2H PRN PRN Reason: Sore Throat Calcium Carbonate (Calcium Carbonate 750 Mg Tab.Chew) 750 mg PO QID PRN PRN Reason: Heartburn Last Admin: 05/29/24 14:17 Dose: 750 mg Documented By: JADIEL Comments: pt requested it for heartburn Celecoxib (Celecoxib 200 Mg Capsule) 200 mg PO BID [facility] Last Admin: 05/31/24 09:20 Dose: 200 mg Documented By: EVER Clonidine HCl (Clonidine Hcl 0.1 Mg Tablet) 0.1 mg PO TID [facility]; Protocol Last Admin: 05/31/24 09:21 Dose: 0.1 mg Documented By: EVER Clopidogrel Bisulfate (Clopidogrel Bisulfate 75 Mg Tablet) 75 mg PO DAILY [facility] Last Admin: 05/31/24 09:20 Dose: 75 mg Documented By: EVER Divalproex Sodium (Divalproex Sodium 500 Mg Tablet.Dr) 500 mg PO BID [facility] Last Admin: 05/31/24 09:21 Dose: 500 mg Documented By: EVER Docusate Sodium (Docusate Sodium 100 Mg Capsule) 100 mg PO BID PRN PRN Reason: Constipation Enoxaparin Sodium (Enoxaparin Sodium 40 Mg/0.4 Ml Syringe) 40 mg SUBCUT Q24H [facility] Last Admin: 05/31/24 02:40 Dose: 40 mg Documented By: CORY Escitalopram Oxalate (Escitalopram Oxalate 20 Mg Tablet) 20 mg PO DAILY [facility] Last Admin: 05/31/24 09:19 Dose: 20 mg Documented By: EVER Gabapentin (Gabapentin 400 Mg Capsule) 800 mg PO BID [facility] Guaifenesin (Guaifenesin La 600 Mg Tab.Er.12h) 1,200 mg PO BID PRN PRN Reason: Cough Hydroxyzine HCl (Hydroxyzine Hcl 50 Mg Tablet) 50 mg PO Q4H PRN PRN Reason: MODERATE TO SEVERE AGITATION Thiamine HCl 100 mg/ Sodium (Chloride) 101 mls @ 202 mls/hr IV DAILY [facility] Last Admin: 05/31/24 09:19 Dose: Not Given Documented By: EVER Non-Admin Reason: Physician Held Med Lactulose (Lactulose 20 Gm/30 Ml Solution) 20 gm PO Q6H [facility] Last Admin: 05/31/24 09:27 Dose: Not Given Documented By: EVER Non-Admin Reason: Patient Refused Levofloxacin (Levofloxacin 750 Mg Tablet) 750 mg PO Q24H [facility] Last Admin: 05/31/24 02:40 Dose: 750 mg Documented By: CORY Loperamide HCl (Loperamide Hcl 2 Mg Capsule) 2 mg PO QID PRN PRN Reason: Loose Stool Magnesium Hydroxide (Milk Of Magnesia 30 Ml Oral.Susp) 30 ml PO DAILY PRN PRN Reason: Constipation Melatonin (Melatonin 3 Mg Tablet) 6 mg PO BEDTIME PRN PRN Reason: Insomnia Melatonin (Melatonin 3 Mg Tablet) 6 mg PO BEDTIME [facility] Last Admin: 05/30/24 20:19 Dose: 6 mg Documented By: CORY Methadone HCl (Methadone Hcl 20 Mg/2 Ml Oral.Conc) 200 mg PO DAILY [facility] Last Admin: 05/31/24 09:24 Dose: 200 mg Documented By: EVER Co-signed By: ABRAHAM Nicotine (Nicotine 21 Mg Patch.Td24) 21 mg TRANSDERMA DAILY [facility] Last Admin: 05/31/24 09:27 Dose: Not Given Documented By: EVER Non-Admin Reason: Patient Refused Nicotine Polacrilex (Nicotine Polacrilex 2 Mg Gum) 2 mg BUCCAL Q2H PRN PRN Reason: NICOTINE WITHDRAWAL Ondansetron HCl (Ondansetron Hcl 4 Mg/2 Ml Vial) 4 mg IVPUSH Q8H PRN PRN Reason: Nausea and Vomiting Last Admin: 05/31/24 15:06 Dose: 4 mg Documented By: EVER Pantoprazole Sodium (Pantoprazole Sodium 20 Mg Tablet.Dr) 40 mg PO DAILY@0630 [facility] Last Admin: 05/31/24 05:39 Dose: 40 mg Documented By: CORY Prazosin HCl (Prazosin Hcl 1 Mg Capsule) 2 mg PO BEDTIME [facility]; Protocol Last Admin: 05/30/24 20:20 Dose: 2 mg Documented By: CORY Quetiapine Fumarate (Quetiapine Fumarate 50 Mg Tablet) 150 mg PO BEDTIME [facility] Last Admin: 05/30/24 20:19 Dose: 150 mg Documented By: CORY Senna (Sennosides 8.6 Mg Tablet) 17.2 mg PO DAILY PRN PRN Reason: Constipation Sodium Chloride (0.9 % Sodium Chloride Flush 3 Ml Syringe) 3 ml IVFLUSH QSHIFT [facility] Last Admin: 05/31/24 15:08 Dose: 3 ml Documented By: EVER Labs 05/26/24 05:01 05/26/24 05:01 Labs: Laboratory Results - last 24 hr 05/26/24 05:01 Beta-(1,3)-D-Glucan <31 B-(1,3)-D-Glucan Intrp Negative Microbiology Microbiology Results: Microbiology 05/26/24 01:45 Blood Culture - Final Blood - Venous No growth after 5 days. 05/26/24 01:45 Blood Culture - Final Blood - Venous No growth after 5 days. Assessment and Plan (1) Obesity hypoventilation syndrome: Status: Acute (2) THOMAS (obstructive sleep apnea): Status: Acute Plan 43-year-old female with pertinent history of hep C untreated, alcohol use disorder, opioid use disorder, mood disorder who was sent to the emergency department for evaluation of altered mentation. Acute hypoxemic respiratory failure and sepsis due to right-sided bronchiolitis Multiple tree-in-bud opacities with halo sign. blood culture neg sputum cx neg CT chest> multiple small nodular airspace opacities throughout right lung and left lower lobe suggesting inflammatory versus infectious process, repeat CT today showing improvement continue Levaquin, plan for total 8 days echo negative for pulm htn on room air Sleep apnea over night sleep study positive cpap at bedtime and with naps will need o/p titration study Acute metabolic encephalopathy. Resolved In the setting of hyperammonemia, sepsis and ?PRES (neg MRI) Seen by Neuro> sleep apnea, check head anc neck CTA for ? vascular disease (negative) Hyperammonemia continue lactulose. Monitor ammonia, trending down No imaging evidence of cirrhosis. No renal disease, GI bleed, UTI. Imaging concerning for ?PRES Blood pressure within normal limits. Seizure precautions. Ordered MRI brain>no PRES. Mood disorder with SI gabapentin decreased to 800 mg BID, seroquel decreased to 150mg daily per patient request Consulted sitter. seen by CARE team - doesn't not criteria for inpatient psychiatric admission Hep C, untreated Outpatient follow-up Substance abuse Methadone 200 mg daily Alcohol use disorder Monitor CIWA. Initiating thiamine Morbid obesity. BMI 49.2 Discussed importance of weight management as this is contributing to worsening of other comorbidities DVT prophylaxis: Mechanical Full code dispo - TBD, needs safe dispo where able to use CPAP to prevent recurrence of encephalopathy Quality Stroke Does the patient have a stroke diagnosis?: No VTE Prior VTE?: No VTE Risk Level:: Medical - moderate - high VTE Device Contraindication: Treatment Not Indicated VTE Drug Contraindication: N/A - Med Ordered
[2024-05-31 16:00] VITALS: BP 113/76; PULSE 64; RESP 16; TEMP 36.5; O2SAT 95
[2024-05-31 16:19] VITALS: BP 113/56
[2024-05-31 17:12] LABS: Aspergillus Antigen Not Detected (Not Detected); Index Value 0.14 (<0.50)
[2024-05-31 20:02] VITALS: BP 110/75
[2024-05-31] MEDS: Prazosin HCL 1 MG CAPSULE 2 MG PO (20:02)
[2024-05-31] MEDS: Gabapentin 400 MG CAPSULE 800 MG PO (20:03)
[2024-05-31] MEDS: Melatonin 3 MG TABLET 6 MG PO (20:03)
[2024-05-31] MEDS: QUEtiapine Fumarate 50 MG TABLET 150 MG PO (20:03)
[2024-05-31 20:04] VITALS: BP 110/75
[2024-05-31 23:42] VITALS: BP 116/87; PULSE 60; RESP 16; TEMP 36.6; O2SAT 94
[2024-06-01] MEDS: levoFLOXacin 750 MG TABLET PO (02:25)
[2024-06-01] MEDS: Enoxaparin Sodium 40 MG/0.4 ML SYRINGE SUBCUT (02:25)
[2024-06-01 03:47] VITALS: PULSE 85; RESP 16; O2SAT 95
[2024-06-01] MEDS: Pantoprazole Sodium 20 MG TABLET.DR 40 MG PO (05:20)
[2024-06-01 08:00] VITALS: BP 108/58; PULSE 73; RESP 16; TEMP 36.3; O2SAT 92
[2024-06-01] MEDS: methADONE HCl 20 MG/2 ML ORAL.CONC 200 MG PO (08:47)
[2024-06-01] MEDS: Gabapentin 400 MG CAPSULE 800 MG PO ×2 (08:47→21:11)
[2024-06-01] MEDS: Divalproex Sodium 500 MG TABLET.DR PO ×2 (08:47→21:12)
[2024-06-01] MEDS: Atorvastatin Calcium 40 MG TABLET PO (08:48)
[2024-06-01] MEDS: Escitalopram Oxalate 20 MG TABLET PO (08:48)
[2024-06-01] MEDS: cloNIDine HCL 0.1 MG TABLET PO ×3 (08:48→21:10)
[2024-06-01] MEDS: Celecoxib 200 MG CAPSULE PO ×2 (08:48→21:12)
[2024-06-01] MEDS: Clopidogrel Bisulfate 75 MG TABLET PO (08:48)
[2024-06-01] MEDS: 0.9 % Sodium Chloride Flush 3 ML SYRINGE IVFLUSH (08:53)
--- NOTE | 2024-06-01 14:27 | MHC.CM.PN ---
CM HAS MADE MULTIPLE CALLS TO [employer] TO CHECK ON DETERMINATION OF APPLICATION WITH NO RETURN CALL/EMAIL. ROXANA SPOKE WITH PT'S P.O. WHO HAS ALSO REACHED OUT VIA EMAIL. PT UPDATED AND ANXIOUS TO MOVE TO NEXT STEP. CM WILL CONTINUE TO ATTEMPT TO REACH [employer] [facility].
[2024-06-01 15:11] VITALS: BP 123/80; PULSE 83; RESP 16; TEMP 36.8; O2SAT 94
[2024-06-01] MEDS: Lactulose 20 GM/30 ML SOLUTION PO ×2 (15:48→21:09)
[2024-06-01] MEDS: ondansetron HCL 4 MG/2 ML VIAL IVPUSH (15:49)
--- NOTE | 2024-06-01 16:27 | HO.PM.IMPN ---
Subjective Subjective Date of Service: 06/01/24 Interval History: seen and examined this morning follow up for respiratory failure no overnight events no specific complaints Review of Systems Review of Systems: Yes all other systems are reviewed and are negative Constitutional Constitutional: Denies chills and Denies fever(s) Cardiovascular Cardiovascular: Denies chest pain and Denies dyspnea Respiratory Respiratory: Denies dyspnea Gastrointestinal Gastrointestinal: Denies abdominal pain Physical Exam Vital Signs: Vital Signs: Last Vital Signs Temp 98.3 F 06/01/24 15:11 Pulse 83 06/01/24 15:11 Resp 16 06/01/24 15:11 BP 123/80 06/01/24 15:11 Pulse Ox 94 06/01/24 15:11 O2 Del Method Room Air 06/01/24 15:11 O2 Flow Rate 2 05/31/24 23:42 BMI result Body Mass Index 49.1 Const: General: cooperative, comfortable, no acute distress, alert and awake Nutritional Appearance: obese Orientation/consciousness: patient oriented x3 Resp: Effort & Inspection: normal respiratory effort, able to speak in complete sentences, no respiratory distress and no use of accessory muscles Cardio: Rate: regular rate GI: Palpation (GI): Soft to palpation and nontender Neuro: General: patient oriented x3, moves all extremities and CN's II-XI intact bilaterally Objective Data Active Medications Acetaminophen (Acetaminophen 325 Mg Tablet) 650 mg PO Q6H PRN PRN Reason: Pain, Mild 1-3,fever,headache Last Admin: 05/27/24 16:44 Dose: 650 mg Documented By: BRUNA Al Hydroxide/Mg Hydroxide (Magnesium Hydrox/Alum Hydrox 30 Ml Oral.Susp) 30 ml PO QID PRN PRN Reason: gi upset Albuterol Sulfate (Albuterol Sulfate 90 Mcg 8 Gm Inhaler) 2 puff INHALE Q4H PRN PRN Reason: Shortness Of Breath Or Wheezing Atorvastatin Calcium (Atorvastatin Calcium 40 Mg Tablet) 40 mg PO DAILY ANUM Last Admin: 06/01/24 08:48 Dose: 40 mg Documented By: EVER Benzocaine (Throat Lozenge, Medicated Lozenge) 1 lozenge MUCOUS MEM Q2H PRN PRN Reason: Sore Throat Calcium Carbonate (Calcium Carbonate 750 Mg Tab.Chew) 750 mg PO QID PRN PRN Reason: Heartburn Last Admin: 05/29/24 14:17 Dose: 750 mg Documented By: JADIEL Comments: pt requested it for heartburn Celecoxib (Celecoxib 200 Mg Capsule) 200 mg PO BID [facility] Last Admin: 06/01/24 08:48 Dose: 200 mg Documented By: EVER Clonidine HCl (Clonidine Hcl 0.1 Mg Tablet) 0.1 mg PO TID [facility]; Protocol Last Admin: 06/01/24 15:48 Dose: 0.1 mg Documented By: EVER Clopidogrel Bisulfate (Clopidogrel Bisulfate 75 Mg Tablet) 75 mg PO DAILY [facility] Last Admin: 06/01/24 08:48 Dose: 75 mg Documented By: EVER Divalproex Sodium (Divalproex Sodium 500 Mg Tablet.Dr) 500 mg PO BID [facility] Last Admin: 06/01/24 08:47 Dose: 500 mg Documented By: EVER Docusate Sodium (Docusate Sodium 100 Mg Capsule) 100 mg PO BID PRN PRN Reason: Constipation Enoxaparin Sodium (Enoxaparin Sodium 40 Mg/0.4 Ml Syringe) 40 mg SUBCUT Q24H [facility] Last Admin: 06/01/24 02:25 Dose: 40 mg Documented By: CORY Escitalopram Oxalate (Escitalopram Oxalate 20 Mg Tablet) 20 mg PO DAILY [facility] Last Admin: 06/01/24 08:48 Dose: 20 mg Documented By: EVER Gabapentin (Gabapentin 400 Mg Capsule) 800 mg PO BID [facility] Last Admin: 06/01/24 08:47 Dose: 800 mg Documented By: EVER Guaifenesin (Guaifenesin La 600 Mg Tab.Er.12h) 1,200 mg PO BID PRN PRN Reason: Cough Hydroxyzine HCl (Hydroxyzine Hcl 50 Mg Tablet) 50 mg PO Q4H PRN PRN Reason: MODERATE TO SEVERE AGITATION Lactulose (Lactulose 20 Gm/30 Ml Solution) 20 gm PO Q6H [facility] Last Admin: 06/01/24 15:48 Dose: 20 gm Documented By: EVER Levofloxacin (Levofloxacin 750 Mg Tablet) 750 mg PO Q24H [facility] Last Admin: 06/01/24 02:25 Dose: 750 mg Documented By: CORY Loperamide HCl (Loperamide Hcl 2 Mg Capsule) 2 mg PO QID PRN PRN Reason: Loose Stool Magnesium Hydroxide (Milk Of Magnesia 30 Ml Oral.Susp) 30 ml PO DAILY PRN PRN Reason: Constipation Melatonin (Melatonin 3 Mg Tablet) 6 mg PO BEDTIME PRN PRN Reason: Insomnia Melatonin (Melatonin 3 Mg Tablet) 6 mg PO BEDTIME [facility] Last Admin: 05/31/24 20:03 Dose: 6 mg Documented By: CORY Methadone HCl (Methadone Hcl 20 Mg/2 Ml Oral.Conc) 200 mg PO DAILY [facility] Last Admin: 06/01/24 08:47 Dose: 200 mg Documented By: EVER Co-signed By: MINO Nicotine (Nicotine 21 Mg Patch.Td24) 21 mg TRANSDERMA DAILY [facility] Last Admin: 06/01/24 08:48 Dose: Not Given Documented By: EVER Non-Admin Reason: Patient Refused Nicotine Polacrilex (Nicotine Polacrilex 2 Mg Gum) 2 mg BUCCAL Q2H PRN PRN Reason: NICOTINE WITHDRAWAL Ondansetron HCl (Ondansetron Hcl 4 Mg/2 Ml Vial) 4 mg IVPUSH Q8H PRN PRN Reason: Nausea and Vomiting Last Admin: 06/01/24 15:49 Dose: 4 mg Documented By: EVER Pantoprazole Sodium (Pantoprazole Sodium 20 Mg Tablet.Dr) 40 mg PO DAILY@0630 [facility] Last Admin: 06/01/24 05:20 Dose: 40 mg Documented By: CORY Prazosin HCl (Prazosin Hcl 1 Mg Capsule) 2 mg PO BEDTIME [facility]; Protocol Last Admin: 05/31/24 20:02 Dose: 2 mg Documented By: CORY Quetiapine Fumarate (Quetiapine Fumarate 50 Mg Tablet) 150 mg PO BEDTIME [facility] Last Admin: 05/31/24 20:03 Dose: 150 mg Documented By: CORY Senna (Sennosides 8.6 Mg Tablet) 17.2 mg PO DAILY PRN PRN Reason: Constipation Sodium Chloride (0.9 % Sodium Chloride Flush 3 Ml Syringe) 3 ml IVFLUSH QSHIFT [facility] Last Admin: 06/01/24 16:22 Dose: Not Given Documented By: EVER Non-Admin Reason: Previously Administered Labs 05/26/24 05:01 05/26/24 05:01 Labs: Laboratory Results - last 24 hr 01/19/25 08:17 Aspergillus Ag (EIA) Not Detected Aspergillus Index Value 0.14 Microbiology Microbiology Results: Microbiology 05/26/24 Unknown Fungal Identification - Final Sputum - Expectorated Assessment and Plan (1) THOMAS (obstructive sleep apnea): Status: Acute (2) Obesity hypoventilation syndrome: Status: Acute Plan 43-year-old female with pertinent history of hep C untreated, alcohol use disorder, opioid use disorder, mood disorder who was sent to the emergency department for evaluation of altered mentation. Acute hypoxemic respiratory failure and sepsis due to right-sided bronchiolitis Multiple tree-in-bud opacities with halo sign. blood culture neg sputum cx neg CT chest> multiple small nodular airspace opacities throughout right lung and left lower lobe suggesting inflammatory versus infectious process, repeat CT today showing improvement continue Levaquin, plan for total 8 days echo negative for pulm htn on room air Sleep apnea over night sleep study positive cpap at bedtime and with naps will need o/p titration study Acute metabolic encephalopathy. Resolved In the setting of hyperammonemia, sepsis and ?PRES (neg MRI) Seen by Neuro> sleep apnea, check head anc neck CTA for ? vascular disease (negative) Hyperammonemia continue lactulose. Monitor ammonia, trending down No imaging evidence of cirrhosis. No renal disease, GI bleed, UTI. Imaging concerning for ?PRES Blood pressure within normal limits. Seizure precautions. Ordered MRI brain>no PRES. Mood disorder with SI gabapentin decreased to 800 mg BID, seroquel decreased to 150mg daily per patient request seen by CARE team - doesn't not criteria for inpatient psychiatric admission Hep C, untreated Outpatient follow-up Substance abuse Methadone 200 mg daily Alcohol use disorder no withdrawal Morbid obesity. BMI 49.2 Discussed importance of weight management as this is contributing to worsening of other comorbidities DVT prophylaxis: Mechanical Full code dispo - TBD, needs safe dispo where able to use CPAP to prevent recurrence of encephalopathy Quality Stroke Does the patient have a stroke diagnosis?: No VTE Prior VTE?: No VTE Risk Level:: Medical - moderate - high VTE Device Contraindication: Treatment Not Indicated VTE Drug Contraindication: N/A - Med Ordered
[2024-06-01] MEDS: Prazosin HCL 1 MG CAPSULE 2 MG PO (21:10)
[2024-06-01] MEDS: Melatonin 3 MG TABLET 6 MG PO (21:11)
[2024-06-01] MEDS: QUEtiapine Fumarate 50 MG TABLET 150 MG PO (21:12)
[2024-06-01 23:01] VITALS: PULSE 72; RESP 14; O2SAT 96
[2024-06-01 23:34] VITALS: BP 142/61; PULSE 79; RESP 16; TEMP 36.3; O2SAT 97
[2024-06-02] MEDS: 0.9 % Sodium Chloride Flush 3 ML SYRINGE IVFLUSH ×3 (00:59→15:06)
[2024-06-02] MEDS: levoFLOXacin 750 MG TABLET PO (01:11)
[2024-06-02] MEDS: Pantoprazole Sodium 20 MG TABLET.DR 40 MG PO (07:17)
[2024-06-02 07:22] VITALS: BP 119/65; PULSE 86; RESP 18; TEMP 36.2; O2SAT 95
[2024-06-02] MEDS: Celecoxib 200 MG CAPSULE PO ×2 (08:34→20:38)
[2024-06-02] MEDS: Escitalopram Oxalate 20 MG TABLET PO (08:34)
[2024-06-02] MEDS: Clopidogrel Bisulfate 75 MG TABLET PO (08:35)
[2024-06-02] MEDS: Atorvastatin Calcium 40 MG TABLET PO (08:35)
[2024-06-02] MEDS: Divalproex Sodium 500 MG TABLET.DR PO ×2 (08:35→20:37)
[2024-06-02] MEDS: cloNIDine HCL 0.1 MG TABLET PO ×3 (08:35→20:38)
[2024-06-02] MEDS: Gabapentin 400 MG CAPSULE 800 MG PO (08:35)
--- NOTE | 2024-06-02 08:40 | MHC.CM.PN ---
Addendum entered by Nuris Hobbs 06/03/24 08:19: PT REPORTS SHE WILL GO TO HER AUNTS HOUSE [facility] WILL BE ARRANGED (TO [address] [place] [id number]) PENDING RT CONFIRMATION THAT PTS CPAP ARRANGEMENTS ARE COMPLETE Original Note: CM RECEIVED A VM FROM [facility], THEY HAVE NOT YET COMPLETED REVIEW OF PTS CLINICALS, HOWEVER THEY ARE AT CAPACITY SO WILL BE UNABLE TO OFFER A BED. CM WILL MEET WITH PT TO WORK ON ALTERNATE ARRANGEMENTS
--- NOTE | 2024-06-02 09:05 | PC.NURSE ---
Patient prefers her scheduled lactulose in apple juice. Pt was given her 200mg of scheduled methadone in a medicine cup. She proceeded to poor the methadone into the cup with lactulose and juice. Patient took a sip of the mixture and began to nod off, spilling the entire mixture in her bed. notified
--- NOTE | 2024-06-02 15:24 | HO.PM.IMPN ---
Subjective Subjective Date of Service: 06/02/24 Interval History: seen and examined this morning spilled her lactulose this am sleeping upon entering room, easily arousable to verbal stimuli Review of Systems Review of Systems: Yes all other systems are reviewed and are negative Constitutional Constitutional: Denies chills and Denies fever(s) Physical Exam Vital Signs: Vital Signs: Last Vital Signs Temp 97.1 F 06/02/24 07:22 Pulse 86 06/02/24 07:22 Resp 18 06/02/24 07:22 BP 119/65 06/02/24 07:22 Pulse Ox 95 06/02/24 07:22 O2 Del Method Room Air 06/02/24 07:22 O2 Flow Rate 2 05/31/24 23:42 BMI result Body Mass Index 49.1 Const: General: cooperative, comfortable, no acute distress, alert and awake Nutritional Appearance: obese Orientation/consciousness: patient oriented x3 Resp: Effort & Inspection: normal respiratory effort, able to speak in complete sentences, no respiratory distress and no use of accessory muscles Cardio: Rate: regular rate GI: Palpation (GI): Soft to palpation and nontender Neuro: General: patient oriented x3, moves all extremities and CN's II-XI intact bilaterally Objective Data Active Medications Acetaminophen (Acetaminophen 325 Mg Tablet) 650 mg PO Q6H PRN PRN Reason: Pain, Mild 1-3,fever,headache Last Admin: 05/27/24 16:44 Dose: 650 mg Documented By: BRUNA Al Hydroxide/Mg Hydroxide (Magnesium Hydrox/Alum Hydrox 30 Ml Oral.Susp) 30 ml PO QID PRN PRN Reason: gi upset Albuterol Sulfate (Albuterol Sulfate 90 Mcg 8 Gm Inhaler) 2 puff INHALE Q4H PRN PRN Reason: Shortness Of Breath Or Wheezing Atorvastatin Calcium (Atorvastatin Calcium 40 Mg Tablet) 40 mg PO DAILY ANUM Last Admin: 06/02/24 08:35 Dose: 40 mg Documented By: GAIL Benzocaine (Throat Lozenge, Medicated Lozenge) 1 lozenge MUCOUS MEM Q2H PRN PRN Reason: Sore Throat Calcium Carbonate (Calcium Carbonate 750 Mg Tab.Chew) 750 mg PO QID PRN PRN Reason: Heartburn Last Admin: 05/29/24 14:17 Dose: 750 mg Documented By: JADIEL Comments: pt requested it for heartburn Celecoxib (Celecoxib 200 Mg Capsule) 200 mg PO BID [facility] Last Admin: 06/02/24 08:34 Dose: 200 mg Documented By: GAIL Clonidine HCl (Clonidine Hcl 0.1 Mg Tablet) 0.1 mg PO TID [facility]; Protocol Last Admin: 06/02/24 15:06 Dose: 0.1 mg Documented By: GAIL Clopidogrel Bisulfate (Clopidogrel Bisulfate 75 Mg Tablet) 75 mg PO DAILY [facility] Last Admin: 06/02/24 08:35 Dose: 75 mg Documented By: GAIL Divalproex Sodium (Divalproex Sodium 500 Mg Tablet.Dr) 500 mg PO BID [facility] Last Admin: 06/02/24 08:35 Dose: 500 mg Documented By: GAIL Docusate Sodium (Docusate Sodium 100 Mg Capsule) 100 mg PO BID PRN PRN Reason: Constipation Enoxaparin Sodium (Enoxaparin Sodium 40 Mg/0.4 Ml Syringe) 40 mg SUBCUT Q24H [facility] Last Admin: 06/02/24 03:00 Dose: Not Given Documented By: GILLIAN Non-Admin Reason: Patient Refused Escitalopram Oxalate (Escitalopram Oxalate 20 Mg Tablet) 20 mg PO DAILY [facility] Last Admin: 06/02/24 08:34 Dose: 20 mg Documented By: GAIL Gabapentin (Gabapentin 400 Mg Capsule) 800 mg PO BID [facility] Last Admin: 06/02/24 08:35 Dose: 800 mg Documented By: GAIL Guaifenesin (Guaifenesin La 600 Mg Tab.Er.12h) 1,200 mg PO BID PRN PRN Reason: Cough Hydroxyzine HCl (Hydroxyzine Hcl 50 Mg Tablet) 50 mg PO Q4H PRN PRN Reason: MODERATE TO SEVERE AGITATION Lactulose (Lactulose 20 Gm/30 Ml Solution) 20 gm PO TID [facility] Levofloxacin (Levofloxacin 750 Mg Tablet) 750 mg PO Q24H [facility] Last Admin: 06/02/24 01:11 Dose: 750 mg Documented By: GILLIAN Loperamide HCl (Loperamide Hcl 2 Mg Capsule) 2 mg PO QID PRN PRN Reason: Loose Stool Magnesium Hydroxide (Milk Of Magnesia 30 Ml Oral.Susp) 30 ml PO DAILY PRN PRN Reason: Constipation Melatonin (Melatonin 3 Mg Tablet) 6 mg PO BEDTIME PRN PRN Reason: Insomnia Melatonin (Melatonin 3 Mg Tablet) 6 mg PO BEDTIME [facility] Last Admin: 06/01/24 21:11 Dose: 6 mg Documented By: MIRACLE Methadone HCl (Methadone Hcl 20 Mg/2 Ml Oral.Conc) 200 mg PO DAILY [facility] Last Admin: 06/02/24 08:48 Dose: Not Given Documented By: GAIL Non-Admin Reason: pt spilled a portion of dose Nicotine (Nicotine 21 Mg Patch.Td24) 21 mg TRANSDERMA DAILY [facility] Last Admin: 06/02/24 08:35 Dose: Not Given Documented By: GAIL Non-Admin Reason: Patient Refused Nicotine Polacrilex (Nicotine Polacrilex 2 Mg Gum) 2 mg BUCCAL Q2H PRN PRN Reason: NICOTINE WITHDRAWAL Ondansetron HCl (Ondansetron Hcl 4 Mg/2 Ml Vial) 4 mg IVPUSH Q8H PRN PRN Reason: Nausea and Vomiting Last Admin: 06/01/24 15:49 Dose: 4 mg Documented By: EVER Pantoprazole Sodium (Pantoprazole Sodium 20 Mg Tablet.Dr) 40 mg PO DAILY@0630 [facility] Last Admin: 06/02/24 07:17 Dose: 40 mg Documented By: GILLIAN Prazosin HCl (Prazosin Hcl 1 Mg Capsule) 2 mg PO BEDTIME [facility]; Protocol Last Admin: 06/01/24 21:10 Dose: 2 mg Documented By: MIRACLE Quetiapine Fumarate (Quetiapine Fumarate 50 Mg Tablet) 150 mg PO BEDTIME [facility] Last Admin: 06/01/24 21:12 Dose: 150 mg Documented By: MIRACLE Senna (Sennosides 8.6 Mg Tablet) 17.2 mg PO DAILY PRN PRN Reason: Constipation Sodium Chloride (0.9 % Sodium Chloride Flush 3 Ml Syringe) 3 ml IVFLUSH QSHIFT [facility] Last Admin: 06/02/24 15:06 Dose: 3 ml Documented By: GAIL Labs 05/26/24 05:01 05/26/24 05:01 Assessment and Plan (1) Obesity hypoventilation syndrome: Status: Acute (2) THOMAS (obstructive sleep apnea): Status: Acute Plan This is a 43-year-old female with pertinent history of hep C untreated, alcohol use disorder, opioid use disorder, mood disorder who was sent to the emergency department for evaluation of altered mentation. Acute hypoxemic respiratory failure and sepsis due to right-sided bronchiolitis Multiple tree-in-bud opacities with halo sign blood culture neg sputum cx neg CT chest> multiple small nodular airspace opacities throughout right lung and left lower lobe suggesting inflammatory versus infectious process, repeat CT today showing improvement continue Levaquin, plan for total 8 days echo negative for pulm htn on room air Sleep apnea over night sleep study positive cpap at bedtime and with naps will need o/p titration study Acute metabolic encephalopathy. Resolved In the setting of hyperammonemia, sepsis and ?PRES (neg MRI) and multiple sedating medications Seen by Neuro> sleep apnea, check head anc neck CTA for ? vascular disease (negative) Hyperammonemia continue lactulose. Monitor ammonia, trending down No imaging evidence of cirrhosis. No renal disease, GI bleed, UTI. likely due to depakote Imaging concerning for ?PRES Blood pressure within normal limits. Seizure precautions. Ordered MRI brain>no PRES. Mood disorder with SI gabapentin further decreased to 600 mg BID, seroquel decreased to 150mg daily to prevent excessive sedation seen by CARE team - doesn't not criteria for inpatient psychiatric admission Hep C, untreated Outpatient follow-up Substance abuse Methadone 200 mg daily Alcohol use disorder no withdrawal Morbid obesity. BMI 49.2 Discussed importance of weight management as this is contributing to worsening of other comorbidities DVT prophylaxis: Mechanical Full code dispo - TBD, needs safe dispo where able to use CPAP to prevent recurrence of encephalopathy Quality Stroke Does the patient have a stroke diagnosis?: No VTE Prior VTE?: No VTE Risk Level:: Medical - moderate - high VTE Device Contraindication: Treatment Not Indicated VTE Drug Contraindication: N/A - Med Ordered
[2024-06-02 15:32] VITALS: BP 138/77; PULSE 86; RESP 18; TEMP 36.2; O2SAT 94
--- NOTE | 2024-06-02 17:44 | PC.NURSE ---
Addendum entered by Shelbie Solano RN 06/02/24 17:48: There are no active IV meds for this patient and discharge planning is ongoing with pending placement. Original Note: Patients IV was outdated. Patient reports that she is a very hard stick. Provider was contacted regarding outdated IV. Provider advised this RN to remove the IV and leave patient without an IV at this time, until further notice.
[2024-06-02] MEDS: Prazosin HCL 1 MG CAPSULE 2 MG PO (20:37)
[2024-06-02] MEDS: QUEtiapine Fumarate 50 MG TABLET 150 MG PO (20:37)
[2024-06-02] MEDS: Lactulose 20 GM/30 ML SOLUTION PO (20:37)
[2024-06-02] MEDS: Melatonin 3 MG TABLET 6 MG PO (20:37)
[2024-06-02 23:32] VITALS: BP 116/64; PULSE 89; RESP 18; TEMP 36.1; O2SAT 94
[2024-06-03] MEDS: Enoxaparin Sodium 40 MG/0.4 ML SYRINGE SUBCUT (02:07)
[2024-06-03] MEDS: levoFLOXacin 750 MG TABLET PO (02:07)
[2024-06-03] MEDS: Pantoprazole Sodium 20 MG TABLET.DR 40 MG PO (05:43)
[2024-06-03 07:24] VITALS: BP 121/78; PULSE 80; RESP 18; TEMP 36.2; O2SAT 97
[2024-06-03] MEDS: cloNIDine HCL 0.1 MG TABLET PO (09:10)
[2024-06-03] MEDS: Divalproex Sodium 500 MG TABLET.DR PO (09:10)
[2024-06-03] MEDS: Celecoxib 200 MG CAPSULE PO (09:10)
[2024-06-03] MEDS: Lactulose 20 GM/30 ML SOLUTION PO (09:10)
[2024-06-03] MEDS: Atorvastatin Calcium 40 MG TABLET PO (09:10)
[2024-06-03] MEDS: Escitalopram Oxalate 20 MG TABLET PO (09:10)
[2024-06-03] MEDS: Clopidogrel Bisulfate 75 MG TABLET PO (09:10)
[2024-06-03] MEDS: methADONE HCl 20 MG/2 ML ORAL.CONC 200 MG PO (11:19)
--- NOTE | 2024-06-03 12:10 | PC.NURSE ---
Pt is alert and oriented and independently ambulatory. Pt is leaving AMA. CHRISTIE Rodrigues came to bedside to discuss risks of leaving. Despite education patient still opted to leave against medical advice. Patient has no IV to remove, pt signed AMA paperwork and ambulated out of building.
--- NOTE | 2024-06-03 13:34 | MHC.CM.PN ---
CM MET WITH PT SEVERAL TIMES THROUGHOUT THE MORNING PT STATING SHE WANTS TO LEAVE AND GO TO HER AUNTS CM INFORMED HER SHE WOULD NOT BE ABLE TO GET HER CPAP TODAY, SHE STATES IT DOES NOT MATTER, SHE WILL GET IT TOMORROW AND BORROW HER AUNTS IF NEEDED PT STATES SHE PLANS TO DC TO HER AUNTS HOME IN [place] TODAY. CM INFORMED HER SHE WOULD NEED TO RETURN TO [facility] TO GET THE CPAP, SHE SAYS SHE IS COMING TO THE [place] ANYWAY CM EXPRESSED CONCERNS ABOUT PTS METHADONE TREATMENT AND MEDICATIONS AND REMINDED HER THE MD WOULD NOT WRITE FOR ALL OF HER HOME MEDS ESPECIALLY SINCE SHE IS LEAVING AM, AND NO METHADONE TREATMENT HAS BEEN ARRANGED IN [place]. PT STATES, THERE IS A WALK IN CLINIC SHE CAN BRING THE LAST DOSE LETTER TO TOMORROW AND GET METHADONE THAT DAY. SHE ALSO STATES SHE HAS A NEW MD SHE PLANS TO SEE, BUT WILL CONTACT HER LAST ONE IF SHE NEEDS TO GET MEDS. SHE SAYS SHE HAD MEDS AT [facility], CM CALLED AND SPOKE TO THE RN [employer] ADMINISTRATION TEACHER WHO WAS UNABLE TO FIND PTS INFORMATION, PT STATES SHE WILL FOLLOW UP TOMORROW. CM INFORMED PT THESE THINGS COULD LIKELY BE ARRANGED IF SHE WAITED ONE MORE DAY FOR DC, SHE STATES SHE HAS BEEN HERE TOO MANY DAYS AND IS LEAVING TODAY. PT SIGNED OUT AMA
== END 2024-06-03 12:04 | disposition left against medical advice (07) | DRG 720 ==
LOC: HO.ED 05-26 01:39 → HO.EDOVER 05-26 02:17 → HO.S3 05-26 12:10
PROVIDERS: Internal Medicine Pulmonary Disease; Nurse Practitioner Acute Care; Physician Assistant Medical; Admitting Provider Student in an Organized Health Care Education/Training Program; Emergency Provider Internal Medicine; PCP Physician Assistant Medical; Visit Provider Physician Assistant Medical
DX: A41.9 Sepsis, unspecified organism (principal); J96.01 Acute respiratory failure with hypoxia; G93.41 Metabolic encephalopathy; E72.20 Disorder of urea cycle metabolism, unspecified; B19.20 Unspecified viral hepatitis C without hepatic coma; E66.01 Morbid (severe) obesity due to excess calories; G47.33 Obstructive sleep apnea (adult) (pediatric); I27.20 Pulmonary hypertension, unspecified; J21.9 Acute bronchiolitis, unspecified; G47.10 Hypersomnia, unspecified; Z68.42 Body mass index [BMI] 45.0-49.9, adult; R45.851 Suicidal ideations; F11.20 Opioid dependence, uncomplicated; Z71.3 Dietary counseling and surveillance; Z20.822 Contact with and (suspected) exposure to COVID-19; Z79.899 Other long term (current) drug therapy
CPT/HCPCS: 0241U; 36415; 70450; 70496; 70498; 70551; 71045; 71250; 74177; 80053; 80307; 81003; 81025; 82140; 82803; 83605; 83735; 83880; 84145; 84443; 85025; 87040; 87070; 87102; 87205; 87305; 87449; 93005; 93306; 94660; 95806; 99285; J1650; J1956; J2405; J2543; J3411; Q9957; Q9967; S9485

== ENCOUNTER → 2024-05-25 18:56 | Outpatient (BNV) | payer OTHER, SELFPAY | PROVIDERS: Admitting Provider Student in an Organized Health Care Education/Training Program; Emergency Provider Internal Medicine; Visit Provider Internal Medicine Cardiovascular Disease | DX: R94.31 Abnormal electrocardiogram [ECG] [EKG] (principal) | CPT/HCPCS: 93010 ==

== ENCOUNTER → 2024-05-25 22:51 | Outpatient (BNV) | payer OTHER, SELFPAY | PROVIDERS: Emergency Provider Internal Medicine; Visit Provider Radiology Diagnostic Radiology | DX: J21.9 Acute bronchiolitis, unspecified (principal); I67.83 Posterior reversible encephalopathy syndrome | CPT/HCPCS: 70450; 74177 ==

== ENCOUNTER 2024-05-26 02:12 | Outpatient (BNV) | payer OTHER, SELFPAY | END 2024-05-30 07:00 | PROVIDERS: Admitting Provider Student in an Organized Health Care Education/Training Program; Emergency Provider Internal Medicine; PCP Physician Assistant Medical; Visit Provider Internal Medicine Cardiovascular Disease | DX: I51.89 Other ill-defined heart diseases (principal) | CPT/HCPCS: 93306 ==

== ENCOUNTER 2024-05-26 02:12 | Outpatient (BNV) | payer OTHER, SELFPAY | END 2024-05-26 09:15 | PROVIDERS: Admitting Provider Student in an Organized Health Care Education/Training Program; Emergency Provider Internal Medicine; Visit Provider Radiology Diagnostic Radiology | DX: I67.82 Cerebral ischemia (principal); J21.9 Acute bronchiolitis, unspecified | CPT/HCPCS: 70551; 71250 ==

== ENCOUNTER 2024-05-26 02:12 | Outpatient (BNV) | payer OTHER, SELFPAY | END 2024-05-27 11:28 | PROVIDERS: Admitting Provider Student in an Organized Health Care Education/Training Program; Emergency Provider Internal Medicine; Visit Provider Radiology Diagnostic Radiology | DX: R93.0 Abnormal findings on diagnostic imaging of skull and head, not elsewhere classified (principal) | CPT/HCPCS: 70496 ==

== ENCOUNTER 2024-05-26 02:12 | Outpatient (BNV) | payer OTHER, SELFPAY | END 2024-05-29 08:19 | PROVIDERS: Admitting Provider Student in an Organized Health Care Education/Training Program; Emergency Provider Internal Medicine; PCP Physician Assistant Medical; Visit Provider Radiology Diagnostic Radiology | DX: R91.8 Other nonspecific abnormal finding of lung field (principal) | CPT/HCPCS: 71250 ==

== ENCOUNTER 2024-05-26 02:12 | Outpatient (BNV) | payer OTHER, SELFPAY | END 2024-05-28 19:00 | PROVIDERS: Admitting Provider Student in an Organized Health Care Education/Training Program; Emergency Provider Internal Medicine; PCP Physician Assistant Medical; Visit Provider Psychiatry & Neurology Neurology | DX: G47.33 Obstructive sleep apnea (adult) (pediatric) (principal) | CPT/HCPCS: 95806 ==

== ENCOUNTER 2024-05-26 02:12 | Outpatient (BNV) | payer OTHER, SELFPAY | END 2024-05-28 10:15 | PROVIDERS: Admitting Provider Student in an Organized Health Care Education/Training Program; Emergency Provider Internal Medicine; Visit Provider Radiology Diagnostic Radiology | DX: R91.8 Other nonspecific abnormal finding of lung field (principal) | CPT/HCPCS: 71045 ==

== ENCOUNTER → 2024-05-26 02:12 | Outpatient (BNV) | payer OTHER, SELFPAY | PROVIDERS: Admitting Provider Student in an Organized Health Care Education/Training Program; Emergency Provider Internal Medicine; Visit Provider Student in an Organized Health Care Education/Training Program | DX: G47.33 Obstructive sleep apnea (adult) (pediatric) (principal); E66.2 Morbid (severe) obesity with alveolar hypoventilation | CPT/HCPCS: 99223; 99232; 99239; 99499 ==

== ENCOUNTER → 2024-05-26 02:12 | Outpatient (BNV) | payer OTHER, SELFPAY | PROVIDERS: Admitting Provider Student in an Organized Health Care Education/Training Program; Emergency Provider Internal Medicine; Visit Provider Psychiatry & Neurology Neurology | DX: G47.10 Hypersomnia, unspecified (principal) | CPT/HCPCS: 99222 ==

== ENCOUNTER → 2024-05-26 02:12 | Outpatient (BNV) | payer OTHER, SELFPAY | PROVIDERS: Admitting Provider Student in an Organized Health Care Education/Training Program; Emergency Provider Internal Medicine; Visit Provider Internal Medicine Pulmonary Disease | DX: J45.909 Unspecified asthma, uncomplicated (principal); R93.89 Abnormal findings on diagnostic imaging of other specified body structures; R91.8 Other nonspecific abnormal finding of lung field; R41.82 Altered mental status, unspecified | CPT/HCPCS: 99222 ==

== ENCOUNTER 2024-10-12 09:11 | Observation (INO) | payer OTHER, SELFPAY ==
[2024-10-12] VITALS (12 sets, daily range): BP systolic 93–147; BP diastolic 53–98; PULSE 70–102; RESP 12–18; TEMP 36.2–36.8; O2SAT 90–99; BMI 46.7; BMI 44.6
--- NOTE | ~2024-10-12 | CT_ITS ---
EXAMINATION: CT HEAD WITHOUT CONTRAST CLINICAL INFORMATION: AMS COMPARISON: None available. TECHNIQUE: Contiguous axial imaging was performed from the skull base to vertex without intravenous administration of contrast. This CT examination was performed using dose optimization techniques as appropriate, variously including the following: *Automated exposure control *Adjustment of mA and/or kV according to patient size (this includes techniques or standardized protocols for targeted exams where dose is matched to indication/reason for exam; i.e. extremities or head) *Use of iterative reconstruction technique DLP: 767 FINDINGS: There is no acute intra-axial, extra-axial bleed, masses or midline shift. There is no acute infarction evolution. There is no edema. The huynh to white matter differentiation is maintained normal. The lateral ventricles are symmetrical in size and duration without enlargement. Bone windows reveal no calvarial abnormality. There is no scalp soft tissue abnormality. Bilateral paranasal sinuses and mastoid air cells are well-aerated. CT/CT head/brain wo IV con IMPRESSION: No acute intracranial process seen. Electronically signed by: Sundeep Iqbal MD 10/12/2024 10:11 AM EDT
--- NOTE | ~2024-10-12 | XR_ITS ---
EXAMINATION: XR CHEST 1 VIEW HISTORY: dyspnea COMPARISON: Comparison is made with the prior examination dated 05/28/2024. FINDINGS: A single AP portable view of the chest performed at 9:59 AM is submitted. There are low lung volumes. The lungs are grossly clear. There is no pleural effusion, pneumothorax, or pulmonary vascular congestion. The heart is normal in size. The bones are intact. XR/XR chest 1V IMPRESSION: Low lung volumes. No acute cardiopulmonary abnormality. Electronically signed by: Slim Manzanares MD 10/12/2024 10:11 AM EDT
--- NOTE | 2024-10-12 09:28 | ECG_ITS ---
Test Reason : qtc check Blood Pressure : */* mmHG Vent. Rate : 90 BPM Atrial Rate : 90 BPM P-R Int : 150 ms QRS Dur : 84 ms QT Int : 394 ms P-R-T Axes : 56 54 33 degrees QTcB Int : 481 ms Normal sinus rhythm T wave abnormality, consider anterior ischemia Prolonged QT Abnormal ECG When compared with ECG of 25-May-2024 19:13, Nonspecific T wave abnormality now evident in Lateral leads QT has lengthened Referred By: Rose Marie Jeffers Electronically Signed By: LISSY DAVIDSON
--- NOTE | 2024-10-12 09:57 | PC.NURSE ---
Patient is a 44-year-old female with pertinent history of hep C untreated, alcohol use disorder, opioid use disorder, mood disorder, acute hypoxemic resp failure, bronchiolitis and sleep apnea who was sent to the emergency department for evaluation of altered mentation, and r/o over-sedation. Patient was sent from [facility] for lethargy, drowsiness and diaphoresis. Patient awakens to verbal stimulus but falls back asleep mid conversation. Is legally blind in the right eye. Unclear if vision changes in the left eye. Denies recent alcohol use or illicit drug . Previous echocardiogram negative for pulmonary hypertension. Patient had an overnight sleep study found to be positive for THOMAS, pulmonary recommends returning to sleep lab for overnight titration testing. If patient is non-compliant with lactulose depakote dose may need to be reduced or discontinued all together. Patient alert but extremely somnolent and unable to stay awake. Morbidly obese. radiation monitor applied and NSR noted. Lungs essentially clear. Respirations even and non-labored. Noted to be hypoxic with pox in the high 80's which resolved on 2L via NC. Abdomen obese, soft, non-tender with positive bowel sounds. Positive pedal pulses with trace LE edema noted.
--- NOTE | 2024-10-12 10:02 | ED.WEAKNESS ---
HPI - Weakness General Chief complaint: ETOH/Substance Use Stated complaint: ?OD,AMS PER EMS Source: patient and EMS Mode of arrival: EMS Limitations: other (oriented but slow to respond) History of Present Illness ED Provider: CHAZ HPI Narrative: 44 yo female with PMH of opiate use disoder, ETOH use disorder, mood disorder on depakote, hep C, THOMAS, bronchiolitis, who is at a [facility] for [place] she reports she has been more sleepy and thinks it is her depakote. Staff sent her for sedation. She denies ingestion/trauma/cough/fevers/chest pain. She states she has a hard time sleepin and wakes up quickly. She denies any falls or head trauma. She states she takes all of her meds as prescribed. Complaint: generalized weakness Onset (ago): day(s) (1) Duration: progressively worsening Location: generalized Migration: none Severity: moderate Relieving factors: none Exacerbating factors: movement Context: other Associated symptoms: denies other symptoms Related Data Home Medications ?Medication ?Instructions ?Recorded ?Confirmed albuterol sulfate 90 mcg/actuation 2 puff inhalation Q4-6H PRN 05/26/24 05/26/24 aerosol inhaler (Ventolin HFA) Shortness Of Breath Or Wheezing aluminum-mag hydroxide-simethicone 30 ml PO QID PRN gi upset 05/26/24 05/26/24 200 mg-200 mg-20 mg/5 mL oral susp atorvastatin 40 mg tablet 40 mg PO DAILY 05/26/24 05/26/24 benzocaine 15 mg-menthol 3.6 mg 1 flor mucous membrane Q2H PRN Sore 05/26/24 05/26/24 lozenges Throat calcium carbonate 500 mg PO QID PRN Heartburn 05/26/24 05/26/24 celecoxib 200 mg capsule 200 mg PO BID 05/26/24 05/26/24 clonidine HCl 0.1 mg tablet 0.1 mg PO TID 05/26/24 05/26/24 clopidogrel 75 mg tablet 75 mg PO DAILY 05/26/24 05/26/24 divalproex 500 mg tablet,delayed 500 mg PO BID 05/26/24 05/26/24 release docusate sodium 100 mg capsule 100 mg PO BID PRN Constipation 05/26/24 05/26/24 (Colace) escitalopram oxalate 20 mg tablet 20 mg PO DAILY 05/26/24 05/26/24 gabapentin 800 mg tablet 800 mg PO TID 05/26/24 05/26/24 guaifenesin 600 mg tablet, 1,200 mg PO BID PRN Cough 05/26/24 05/26/24 extended release 12 hr hydroxyzine pamoate 50 mg capsule 50 mg PO Q4H PRN MODERATE TO 05/26/24 05/26/24 SEVERE AGITATION loperamide 2 mg capsule 2 mg PO QID PRN Loose Stool 05/26/24 05/26/24 melatonin 5 mg tablet 5 mg PO BEDTIME 05/26/24 05/26/24 methadone 10 mg/mL oral 200 mg PO DAILY 05/26/24 05/26/24 concentrate (Methadone Intensol) nicotine (polacrilex) 2 mg gum 2 mg buccal Q2H PRN NICOTINE 05/26/24 05/26/24 WITHDRAWAL nicotine 7 mg/24 hr daily 1 patch transdermal DAILY 05/26/24 05/26/24 transdermal patch ondansetron 4 mg disintegrating 4 mg PO Q6H PRN NAUSEA/VOMITING 05/26/24 05/26/24 tablet pantoprazole 40 mg tablet,delayed 40 mg PO DAILY@0630 05/26/24 05/26/24 release prazosin 2 mg capsule 2 mg PO BEDTIME 05/26/24 05/26/24 quetiapine 300 mg tablet 300 mg PO BEDTIME 05/26/24 05/26/24 sennosides 8.6 mg tablet (senna) 17.2 mg PO DAILY PRN Constipation 05/26/24 05/26/24 Allergies Allergy/AdvReac Type Severity Reaction Status Date / Time aspirin [ASA] Allergy Intermediate Hives Verified 10/12/24 09:25 Penicillins Allergy Dizziness Verified 10/12/24 09:25 Review of Systems Review of Systems: Constitutional : No Fever, No Chills, pos Fatigue ENT/Mouth : No sore throat, No Rhinorrhea Eyes: No Eye Pain, No Swelling, No Redness Cardiovascular : No Chest Pain, No SOB, No Dyspnea on Exertion Respiratory : No Cough, No Sputum Gastrointestinal : No Nausea, No Vomiting, No Diarrhea, No abdominal Pain Genitourinary : No Dysuria, No Urinary Frequency, No Hematuria, Musculoskeletal : No joint pain, No Myalgias, No Joint Swelling Skin : No Skin Lesions, No rash Neuro : No Weakness, No Numbness, No Dizziness, no Headache All other systems reviewed and are negative [facility] Past Medical History Attestation statement: The following information was validated with the patient. Source: old records reviewed Medical History Obesity hypoventilation syndrome THOMAS (obstructive sleep apnea) Asthma CVA (cerebral vascular accident) GERD (gastroesophageal reflux disease) Social History Social History Household Members: None Do you presently have visiting nurse or other home services: No Alcohol intake: former Comment: 1:1 sitter bedside for SI Patient Tobacco Use Status: Former Tobacco user Substance Use Type: Opiates Advance Directives: No Advance Directives Information Provided: Yes service: No Physical Exam Vital Signs: Vital Signs: Last Vital Signs Temp 98.3 F 10/12/24 14:00 Pulse 83 10/12/24 14:00 Resp 14 10/12/24 14:00 BP 147/84 H 10/12/24 14:00 Pulse Ox 93 10/12/24 14:00 O2 Del Method Nasal Cannula 10/12/24 14:00 O2 Flow Rate 2 10/12/24 14:00 BMI result Body Mass Index 46.7 Appearance: Somnolent but wakes easily and slow to respond. Oriented X3. No acute distress. Eyes: Pupils pinpoint, atraumatic ENT: Pharynx normal. Neck: Normal inspection. Neck supple. CVS: Normal heart rate and rhythm. Pulses normal. Respiratory: No respiratory distress. Breath sounds normal. Abdomen: Soft and nontender. Skin: Skin warm and dry. Normal skin color. Normal skin turgor. Extremities: No lower extremity edema. No calf ttp Neuro: Oriented X 3. No motor deficit. No sensory deficit. CN2-12 intact no clonus or tremors noted Course Course Course Narrative: still easily woken at this time I am suspecting more of a polypharmacy issue Medications Administered Discontinued Medications Generic Name Dose Route Start Last Admin Trade Name Freq PRN Reason Stop Dose Admin Lactulose 20 gm 10/12/24 11:08 10/12/24 11:17 Lactulose 20 Gm/30 Ml Solution PO 10/12/24 11:09 20 gm ONCE ONE Administration Medical Decision Making Medical Decision Making MDM Narrative: 44 yo female with PMH of opiate use disoder, ETOH use disorder, mood disorder on depakote, hep C, THOMAS, bronchiolitis, now here with sedation, pinpoint pupils she reports her ammonia is high she denies infections, trauma. At this time will need basic labs, ammonia level, UA, tox panel, CT head. Differential Diagnosis Differential Diagnoses: The differential diagnosis associated with the presentation includes CO2 retention, hyperammonemia, med reaction Admission/Observation Consideration of admission/observation: Escalation of care including admission/observation considered still sleeping will repeat VBG if normal will admit for encephalopathy she has not cleared in ED repeat VBG stable still sleepy will admit for repeat ammonia levels in AM she states she has untreated hep C Consult Healthcare Provider Management of the patient was discussed with: Hospitalist (will admit) Lab Data [facility] Lab Attestation statement: I reviewed the patient's lab results. 10/12/24 10:49 10/12/24 10:49 Labs: Lab Results 10/12/24 10/12/24 10/12/24 Range/Units 10:49 10:50 10:56 WBC 6.6 (4.8-10.8) X10*3/uL RBC 4.20 (4.20-5.50) X10*6/uL Hgb 12.2 (12.0-16.0) g/dl Hct 37.9 (37.0-47.0) % MCV 90.2 (80.0-98.0) fL MCH 29.0 (27.0-33.0) pg MCHC 32.2 (31.0-35.0) g/dl RDW 14.1 (11.0-16.0) % Plt Count 215 D (160-400) X10*3/uL MPV 9.7 (9.4-12.3) fL Immature Gran % (Auto) 0.3 (0.0-0.4) % Neut % (Auto) 59.2 (45-73) % Lymph % (Auto) 31.9 (20-40) % [place] % (Auto) 7.2 (2-11) % Eos % (Auto) 0.8 (0-4) % Baso % (Auto) 0.6 (0-2) % Lymph # (Auto) 2.1 (1.2-4.9) X10*3/uL [place] # (Auto) 0.5 (0.1-1.2) X10*3/uL Eos # (Auto) 0.1 (0.0-0.4) X10*3/uL Baso # (Auto) 0.0 (0.0-0.2) X10*3/uL Abs Immat Gran (auto) 0.02 (0.00-0.03) X10*3/uL Absolute Neuts (auto) 3.9 (2.0-8.3) x10*3/uL Absolute Nucleated RBC 0.000 (0.0-0.012) X10*3/uL Nucleated RBC % (auto) 0.0 (0.0-0.2) /100WBC VBG pH 7.45 H (7.32-7.43) VBG pCO2 51 mmHg VBG pO2 82 mmHg VBG HCO3 36 H (22-26) mmol/L VBG O2 Saturation 96.0 % VBG Base Excess 11.0 mmol/L Sodium 143 (135-145) mmol/L Potassium 4.0 (3.3-5.1) mmol/L Chloride 103 (96-108) mmol/L Carbon Dioxide 33 H (22-29) mmol/L Anion Gap 11 L (12-20) BUN 11 (9-16) mg/dL Creatinine 0.64 (0.5-1.4) mg/dL Estim Creat Clear Calc 128.8 Estimated GFR > 60 Random Glucose 108 (60-115) mg/dL Calcium 9.1 (8.4-10.2) mg/dL Magnesium 2.1 (1.6-2.6) mg/dL Total Bilirubin 0.3 (0.0-1.0) mg/dL Direct Bilirubin 0.1 (0.0-0.5) mg/dL AST 33 H (5-31) U/L ALT 20 (0-31) U/L Alkaline Phosphatase 102 (39-117) U/L Ammonia 67 H (13-55) umol/L Troponin I High Sens < 2.7 (<3.5-17.0) ng/L C-Reactive Protein 1.06 H (< or = 0.50) mg/dL B-Natriuretic Peptide < 10 (<100) pg/mL Total Protein 7.4 (6.5-8.0) g/dL Albumin 4.0 (3.5-5.0) g/dL Urine Color Urine Appearance Urine pH (5.0-9.0) Ur Specific [place] (1.005-1.025) Urine Protein (Neg-Trace) mg/dL Urine Glucose (UA) (Negative) mg/dL Urine Ketones (Negative) mg/dL Urine Blood (Negative) Urine Nitrite (Negative) Ur Leukocyte Esterase (Negative) Urine Opiates Screen (Not Detect) Ur Buprenorphine Scrn (Not Detect) ng/mL Ur Oxycodone Screen (Not Detect) ng/mL Urine Methadone Screen (Not Detect) ng/mL Urine Fentanyl Screen (Not Detect) Ur Barbiturates Screen (Not Detect) Valproic Acid < 12.5 L (50.0-100.0) mcg/mL Ur Phencyclidine Scrn (Not Detect) Ur Amphetamines Screen (Not Detect) U Benzodiazepines Scrn (Not Detect) Urine Cocaine Screen (Not Detect) U Marijuana (THC) Screen (Not Detect) Ethyl Alcohol < 10 mg/dL 10/12/24 10/12/24 10/12/24 Range/Units 13:38 13:39 14:27 WBC (4.8-10.8) X10*3/uL RBC (4.20-5.50) X10*6/uL Hgb (12.0-16.0) g/dl Hct (37.0-47.0) % MCV (80.0-98.0) fL MCH (27.0-33.0) pg MCHC (31.0-35.0) g/dl RDW (11.0-16.0) % Plt Count (160-400) X10*3/uL MPV (9.4-12.3) fL Immature Gran % (Auto) (0.0-0.4) % Neut % (Auto) (45-73) % Lymph % (Auto) (20-40) % [place] % (Auto) (2-11) % Eos % (Auto) (0-4) % Baso % (Auto) (0-2) % Lymph # (Auto) (1.2-4.9) X10*3/uL [place] # (Auto) (0.1-1.2) X10*3/uL Eos # (Auto) (0.0-0.4) X10*3/uL Baso # (Auto) (0.0-0.2) X10*3/uL Abs Immat Gran (auto) (0.00-0.03) X10*3/uL Absolute Neuts (auto) (2.0-8.3) x10*3/uL Absolute Nucleated RBC (0.0-0.012) X10*3/uL Nucleated RBC % (auto) (0.0-0.2) /100WBC VBG pH 7.46 H (7.32-7.43) VBG pCO2 45 mmHg VBG pO2 186 mmHg VBG HCO3 32 H (22-26) mmol/L VBG O2 Saturation 100.0 % VBG Base Excess 7.6 mmol/L Sodium (135-145) mmol/L Potassium (3.3-5.1) mmol/L Chloride (96-108) mmol/L Carbon Dioxide (22-29) mmol/L Anion Gap (12-20) BUN (9-16) mg/dL Creatinine (0.5-1.4) mg/dL Estim Creat Clear Calc Estimated GFR Random Glucose (60-115) mg/dL Calcium (8.4-10.2) mg/dL Magnesium (1.6-2.6) mg/dL Total Bilirubin (0.0-1.0) mg/dL Direct Bilirubin (0.0-0.5) mg/dL AST (5-31) U/L ALT (0-31) U/L Alkaline Phosphatase (39-117) U/L Ammonia (13-55) umol/L Troponin I High Sens (<3.5-17.0) ng/L C-Reactive Protein (< or = 0.50) mg/dL B-Natriuretic Peptide (<100) pg/mL Total Protein (6.5-8.0) g/dL Albumin (3.5-5.0) g/dL Urine Color Yellow Urine Appearance Clear Urine pH 5.0 (5.0-9.0) Ur Specific [place] 1.015 (1.005-1.025) Urine Protein Negative (Neg-Trace) mg/dL Urine Glucose (UA) Negative (Negative) mg/dL Urine Ketones Negative (Negative) mg/dL Urine Blood Negative (Negative) Urine Nitrite Negative (Negative) Ur Leukocyte Esterase Negative (Negative) Urine Opiates Screen Not Detected (Not Detect) Ur Buprenorphine Scrn Not Detected (Not Detect) ng/mL Ur Oxycodone Screen Not Detected (Not Detect) ng/mL Urine Methadone Screen Positive H (Not Detect) ng/mL Urine Fentanyl Screen Not Detected (Not Detect) Ur Barbiturates Screen Not Detected (Not Detect) Valproic Acid (50.0-100.0) mcg/mL Ur Phencyclidine Scrn Not Detected (Not Detect) Ur Amphetamines Screen Not Detected (Not Detect) U Benzodiazepines Scrn Not Detected (Not Detect) Urine Cocaine Screen Not Detected (Not Detect) U Marijuana (THC) Screen Not Detected (Not Detect) Ethyl Alcohol mg/dL Independent Interpretation I performed an independent interpretation of an: EKG, Plain X-Ray (normal ) and CT Scan (normal ) Interpretation: Rate: 90 Rhythm: NSR [place]: normal Normal P waves. Normal ZEYAD. Normal QRS complex. ST T wave : inverted t waves V1-V3, no SWATHI qTC: 481 prior studies: no change May 2024 The study has been interpreted contemporaneously by me. . Radiology Impression Discussion of test interpretation with radiology: I have reviewed the radiologist's reading. Independent Historian Clinical information obtained from an independent historian. History obtained from or confirmed by: EMS External Record Review External record reviewed: Inpatient record and Outpatient record Discharge Plan Discharge Clinical Impression: Acute encephalopathy, Hyperammonemia Patient Disposition: Admitted As Inpatient Prescriptions: No Action celecoxib 200 mg capsule 200 mg PO BID atorvastatin 40 mg tablet 40 mg PO DAILY clonidine HCl 0.1 mg tablet 0.1 mg PO TID quetiapine 300 mg tablet 300 mg PO BEDTIME clopidogrel 75 mg tablet 75 mg PO DAILY gabapentin 800 mg tablet 800 mg PO TID pantoprazole 40 mg tablet,delayed release (DR/EC) 40 mg PO DAILY@0630 albuterol sulfate [Ventolin HFA] 90 mcg/actuation HFA aerosol inhaler 2 puff INHALATION Q4-6H PRN (Reason: Shortness Of Breath Or Wheezing) prazosin 2 mg capsule 2 mg PO BEDTIME nicotine 7 mg/24 hr patch 24 hour 1 patch transdermal DAILY escitalopram oxalate 20 mg tablet 20 mg PO DAILY melatonin 5 mg tablet 5 mg PO BEDTIME docusate sodium [Colace] 100 mg Capsule 100 mg PO BID PRN (Reason: Constipation) Rx Instructions: HOLD FOR LOOSE STOOLS calcium carbonate [Tums 500] 500 mg calcium (1,250 mg) Tablet,Chewable 500 mg PO QID PRN (Reason: Heartburn) alum-mag hydroxide-simeth 200-200-20 mg/5 mL Suspension 30 ml PO QID PRN (Reason: gi upset) benzocaine-menthol 15-3.6 mg Lozenge 1 flor MUCOUS MEMBRANE Q2H PRN (Reason: Sore Throat) guaifenesin 600 mg Tablet Extended Release 12hr 1,200 mg PO BID PRN (Reason: Cough) loperamide 2 mg Capsule 2 mg PO QID PRN (Reason: Loose Stool) nicotine (polacrilex) 2 mg Gum 2 mg BUCCAL Q2H PRN (Reason: NICOTINE WITHDRAWAL) hydroxyzine pamoate [Vistaril] 50 mg Capsule 50 mg PO Q4H PRN (Reason: MODERATE TO SEVERE AGITATION) ondansetron 4 mg Tablet,Disintegrating 4 mg PO Q6H PRN (Reason: NAUSEA/VOMITING) sennosides [senna] 8.6 mg Tablet 17.2 mg PO DAILY PRN (Reason: Constipation) Rx Instructions: HOLD FOR LOOSE STOOLS divalproex 500 mg Tablet,Delayed Release (Dr/Ec) 500 mg PO BID methadone [Methadone Intensol] 10 mg/mL Concentrate 200 mg PO DAILY Print Language: Kazakh
[2024-10-12 10:55] LABS: MANUAL DIFF FLAG NO
[2024-10-12 10:57] LABS: Venous Blood Gas Refer to POC result
[2024-10-12 11:00] LABS: VBG HCO3 36 mmol/L (22-26); VBG pCO2 51 mmHg; VBG pH 7.45 (7.32-7.43); VBG pO2 82 mmHg
[2024-10-12 11:07] LABS: Ammonia 67 umol/L (13-55)
[2024-10-12 11:15] LABS: Basophils Percent Auto 0.6 % (0-2); Eosinophils Absolute Auto 0.1 X10*3/uL (0.0-0.4); Eosinophils Percent Auto 0.8 % (0-4); Hematocrit 37.9 % (37.0-47.0); Hemoglobin 12.2 g/dl (12.0-16.0); Imm Gran Abs Auto 0.02 X10*3/uL (0.00-0.03); Imm Gran Pct Auto 0.3 % (0.0-0.4); Lymphocytes Absolute Auto 2.1 X10*3/uL (1.2-4.9); Lymphocytes Percent Auto 31.9 % (20-40); Mean Corpuscular HGB Conc 32.2 g/dl (31.0-35.0); Mean Corpuscular Volume 90.2 fL (80.0-98.0); Mean Platelet Volume 9.7 fL (9.4-12.3); Monocytes Absolute Auto 0.5 X10*3/uL (0.1-1.2); Monocytes Percent Auto 7.2 % (2-11); Neutrophils Absolute Auto 3.9 x10*3/uL (2.0-8.3); Neutrophils Percent Auto 59.2 % (45-73); Platelet Count 215 X10*3/uL (160-400); Red Cell Distribution Width 14.1 % (11.0-16.0); White Blood Count 6.6 X10*3/uL (4.8-10.8)
[2024-10-12 11:15] LABS: Ethanol < 10 mg/dL
[2024-10-12] MEDS: Lactulose 20 GM/30 ML SOLUTION PO ×2 (11:17→20:40)
[2024-10-12 11:19] LABS: B Type Natriuretic Peptide < 10 pg/mL (<100)
[2024-10-12 11:22] LABS: Troponin-I High Sensitivity < 2.7 ng/L (<3.5-17.0)
[2024-10-12 11:22] LABS: Alanine Aminotransferase 20 U/L (0-31); Anion Gap 11 (12-20); Aspartate Amino Transferase 33 U/L (5-31); Bilirubin Direct 0.1 mg/dL (0.0-0.5); Bilirubin Total 0.3 mg/dL (0.0-1.0); Blood Urea Nitrogen 11 mg/dL (9-16); C Reactive Protein 1.06 mg/dL (< or = 0.50); Calcium 9.1 mg/dL (8.4-10.2); Carbon Dioxide 33 mmol/L (22-29); Chloride 103 mmol/L (96-108); Creatinine Clr Calc Pharmacy 128.8; Estimated Glomerular Filt Rate > 60; Glucose Random 108 mg/dL (60-115); Magnesium 2.1 mg/dL (1.6-2.6); Sodium 143 mmol/L (135-145); Total Protein 7.4 g/dL (6.5-8.0)
--- NOTE | 2024-10-12 11:57 | PC.NURSE ---
Patient straight cathed without difficulty. Clear yellow urine noted. Urine specs obtained and sent.
[2024-10-12 12:02] LABS: Alkaline Phosphatase 102 U/L (39-117)
--- OUTSIDE RECORDS SUMMARY | 2024-10-12 12:31 | XMS_ITS | Clinical Summary ---
Author Organization [facility] Address [address] [place] [address] Care Team Providers Care Liner Inserter Name Role Phone Unavailable Primary Care Provider Unavailabl e Allergies Active Allergy Reactions Criticality Noted Date Comments Aspirin 10/05/2023 Medications * This document contains information received from the source organization and may not represent a complete record from that organization. gabapentin (Neurontin) 600 MG tabletIndicatio ns:Neuropathic Pain Take 600 mg by mouth 3 times daily. Active atorvastatin (Lipitor) 80 MG tablet Take 80 mg by mouth Once per day. Active clopidogrel (Plavix) 75 MG tabletIndicatio ns:Cerebrovascu lar Accident Take 75 mg by mouth Once per day. Active methadone (Dolophine) 10 MG/ML solution Take 140 mg by mouth Once per day. At [facility] [place] Active famotidine (Pepcid) 20 MG tablet Take 2 tablets (40 mg) by mouth 2 times daily. 120 tablet 3 4 Active albuterol 108 (90 Base) MCG/ACT inhaler Inhale 2 puffs every 4 (four) hours if needed for wheezing or shortness of breath. 18 g 3 4 Active ciclesonide (Alvesco) 80 MCG/ACT inhaler Inhale 4 puffs 2 times daily. Rinse mouth with water after use to reduce aftertaste and incidence of candidiasis. Do not swallow. Use spacer between your mouth and the inhaler medicine. 6.1 g 11 4 Active Spacer/Aero-Hol ding Chambers (AeroChamber Holding Chamber) device 1 each 2 times daily. Use with steroid inhaler 1 each 4 Active Active Problems Problem Noted Date Diagnosed Date History of stroke 10/05/2023 Overview (10/05/2023): Two strokes. First 10/28. Second 03/30. Had been using been using heroin and crack. Went to [facility]. No procedures. Taking atorvastatin and clopidogrel. No residual deficits. GERD (gastroesophageal reflux disease) Chronic pain of right knee 10/05/2023 Overview (10/05/2023): History of needing steroid injections Chronic left shoulder pain 10/05/2023 Chronic midline low back pain without sciatica 0 10/05/2023 Overview (10/05/2023): History of surgery History of substance abuse 10/05/2023 Overview (10/05/2023): Had used heroin, crack. Living in [facility] now (10/05/23). Mild intermittent asthma without complication Depression 10/05/2023 History of seizure 10/05/2023 Overview (10/05/2023): Once, when using drugs THOMAS (obstructive sleep apnea) 10/05/2023 Overview (10/05/2023): Noticed nocturnal hypoxemia at hospital; needs PSG Methadone maintenance therapy patient 10/05/2023 Encounters Date Type Department Care Team Description 09/03/2024 Population Health Risk Score [facility] [address] [place] [address] [phone] Provider, Population Health Generic from Last 3 Months Social History Tobacco Use Types Packs/Day Years Used Date Smoking Tobacco: Every Day Cigarettes Passive Smoke Exposure: Past Smokeless Tobacco: Never Tobacco Cessation:Ready to Q uit: Not Asked; Counseling Given: Not Answered Comments Unknown Sex and Gender Information Value Date Recorded Sex Assigned at Female 03/08/2022 10:26 AM EDT Legal Sex Female 10:26 AM EDT Gender Identity Female 10/05/2023 8:35 AM EDT Sexual Orientation Straight 10/05/2023 8: 35 AM EDT Last Filed Vital Signs Vital Sign Reading Time Taken Comments Blood Pressure 124/84 10/05/2023 8:57 AM EDT Pulse 84 10/05/2023 8:57 AM EDT Temperature 36.4 ??C (97.6 ??F) 10/05/2023 8:57 AM ED T Respiratory Rate 18 10/05/2023 8:57 AM EDT Oxygen Saturation 97% 10/05/2023 8:57 AM EDT Inhaled Oxygen Concentration - - Weight 111 kg (244 lb) 10/05/2023 8:57 AM EDT Height - - Body Mass Index - - Plan of Treatment Health Maintenance Due Date Last Done Comments CT Colonography 1979 Colonoscopy 1979 Colorectal Cancer Screening 1979 Depression Screening 1979 FIT DNA/Cologuard 1979 FIT 1979 FOBT 1979 HIV Screening 1979 Lipid Panel 1979 SDOH Screening 1979 Sigmoidoscopy 1979 Disability Screening 1979 Alcohol/Substance Use Screening 1991 Family Planning (PISQ) 07/09/1994 Hepatitis C Screening 07/09/1997 Hepatitis B Vaccines (1 of 3 - 19+ 3-dose series) 07/09/1998 Pneumococcal Vaccine: Pediatrics (0 to 5 Years) and At-Risk Patients (6 to 49) Years) (1 of 2 - PCV) 07/09/1998 Pap Smear 07/09/2000 Cervical Cancer Screening 07/09/2009 HPV/Cotest 07/09/2009 DTaP/Tdap/Td Vaccines (1 - Tdap) 12/31/2015 12/30/2015 Mammogram 2019 COVID-19 Vaccine (2 - 2023-2 5 season) 2024 03/09/2023 Tobacco Screening 10/04/2024 10/05/2023 Influenza Vaccine (Season Ended) 2025 02/17/2023, 04/08/2022, 07/16/2017 Zoster Vaccines (1 of 2) 07/09/2029 RSV Patients and Patients Aged 60 years or older (1 - 1-dose 75+ series) 07/09/2054 HIB Vaccines Aged Out No longer eligi ble based on patient's age to complete this topic HPV Vaccines Aged Out No longer eligi ble based on patient's age to complete this topic Hepatitis A Vaccines Aged Out No long er eligible based on patient's age to complete this topic IPV Vaccines Aged Out No longer eligi ble based on patient's age to complete this topic Meningococcal B Vaccine Aged Out No l onger eligible based on patient's age to complete this topic Meningococcal Vaccine Aged Out No kylie jovany eligible based on patient's age to complete this topic RSV under 20 months Aged Out No longe r eligible based on patient's age to complete this topic Rotavirus Vaccines Aged Out No longer eligible based on patient's age to complete this topic Insurance [facility] C[facility]
[2024-10-12 12:42] LABS: Valproate < 12.5 mcg/mL (50.0-100.0)
[2024-10-12 13:47] LABS: Appearance Urine Clear; Color Urine Yellow; Glucose Urine UA Negative (Negative); Leukocyte Esterase Urine Negative (Negative); Nitrite Urine Negative (Negative); Specific Gravity - Urine 1.015 (1.005-1.025); Urine Blood Negative (Negative); Urine Ketones Negative (Negative); Urine Protein Negative (Neg-Trace)
[2024-10-12 13:59] LABS: Amphetamine Screen Urine Not Detected (Not Detect); Barbiturates, Urine Not Detected (Not Detect); Benzodiazepines Screen Urine Not Detected (Not Detect); Buprenorphine Scr Not Detected (Not Detect); Cannabinoid Screen Urine Not Detected (Not Detect); Cocaine Screen Urine Not Detected (Not Detect); Fentanyl, urine Not Detected (Not Detect); Methadone Screen, Urine Positive (Not Detect); Opiate Screen Urine Not Detected (Not Detect); Oxycodone Screen Urine Not Detected (Not Detect); Phencyclidine Screen Urine Not Detected (Not Detect)
[2024-10-12 14:31] LABS: VBG Base Excess 7.6 mmol/L; VBG HCO3 32 mmol/L (22-26); VBG pCO2 45 mmHg; VBG pH 7.46 (7.32-7.43); VBG pO2 186 mmHg
--- NOTE | 2024-10-12 14:31 | PC.NURSE ---
Patient ambulated to the bathroom with a steady gait.
[2024-10-12 14:32] LABS: Venous Blood Gas Refer to POC result
--- NOTE | 2024-10-12 15:10 | P.HPHOSP_ITS ---
History of Present Illness Date of Service: 10/12/24 Chief Complaint: Oversedation, sent from methadone clinic 44 yo female with opioid dependence on methadone, history of hep C, possible THOMAS. She went to methadone clinic and received her usual dose of methadone 160 mg, she has been on 200 mg daily for years and was reduced about 4 weeks ago. At the clinic today they thoght she was more somnlent and ssent to the ED. She has no hypoxia, ammonia level is 67. HCT is negative, UA no UTI, she's given lactulose 20 gm. She is alert and oreinted x 3, and was eating a sandwich when I saw her. she tends to want to fall asleep easily. VBG showed no CO2 retention. She also tells me that she takes seroquel 25 mg daily she took earlier and thinks that is contributing to her somnolence. Review of Systems 2 Review of Systems: Gen: no fever Resp: no sob, no cough CV: no chest, no CRAVEN, no leg edema GI: No n/v, no abd pain Neuro: No confusion [facility] Medical History Obesity hypoventilation syndrome THOMAS (obstructive sleep apnea) Asthma CVA (cerebral vascular accident) GERD (gastroesophageal reflux disease) Social History Household Members: None Housing: Homeless Do you presently have visiting nurse or other home services: No Alcohol intake: former Comment: 1:1 sitter bedside for SI Patient Tobacco Use Status: Current everyday Tobacco user Tobacco use type: Cigarette Cigarettes Per Day: 3 Years Smoked: 32 Smoked in Last 30 Days: Yes Patient Interested in Nicotine Replacement: Yes Patient Given Instructions on How to Stop Smoking: No Second Hand Smoke Exposure: Yes Substance Use Type: Opiates Currently Displaying Signs/Symptoms of Drug Intoxication Withdrawal: No Have you been hit, kicked, punched, or otherwise hurt by someone within the past year? If so, by whom?: No Do you feel safe in your current relationship?: No Current Relationship Is there a partner from a previous relationship who is making you feel unsafe now?: No Are you made to feel afraid or neglected: No Advance Directives: No Advance Directives Information Provided: Yes Do you have a plan to hurt others: No Plan Recently lost weight without trying: No Eating poorly because of decreased appetite: No Patient : No : No Poor oral hygiene: No service: No Meds Allergies Allergy/AdvReac Type Severity Reaction Status Date / Time aspirin [ASA] Allergy Intermediate Hives Verified 10/12/24 09:25 Penicillins Allergy Dizziness Verified 10/12/24 09:25 Home Medications ?Medication ?Instructions ?Recorded ?Confirmed ?Last Taken ?Type atorvastatin 40 mg tablet 40 mg PO DAILY 05/26/24 10/12/24 10/12/24 History escitalopram oxalate 20 mg tablet 20 mg PO DAILY 05/26/24 10/12/24 10/12/24 History gabapentin 800 mg tablet 800 mg PO TID 05/26/24 10/12/24 10/12/24 History pantoprazole 40 mg tablet,delayed 40 mg PO DAILY@0630 05/26/24 10/12/24 10/12/24 History release prazosin 2 mg capsule 2 mg PO BEDTIME 05/26/24 10/12/24 10/12/24 History albuterol sulfate 90 mcg/actuation 2 puff inhalation QID PRN 10/12/24 10/12/24 Unknown History aerosol inhaler (Ventolin HFA) Shortness Of Breath Or Wheezing diclofenac sodium 1 % topical gel 2 g topical QID PRN Pain 10/12/24 10/12/24 Unknown History diclofenac sodium 50 mg 50 mg PO TID PRN Pain 10/12/24 10/12/24 Unknown History tablet,delayed release furosemide 20 mg tablet 20 mg PO DAILY swelling 10/12/24 10/12/24 10/12/24 History lumateperone 42 mg capsule 42 mg PO BEDTIME 10/12/24 10/12/24 10/12/24 History (Caplyta) pramipexole 0.5 mg tablet 0.5 mg PO DAILY PRN Restless Leg(S) 10/12/24 10/12/24 Unknown History quetiapine 200 mg tablet 200 mg PO BEDTIME 10/12/24 10/12/24 10/12/24 History quetiapine 25 mg tablet 25 mg PO TID PRN Agitation 10/12/24 10/12/24 Unknown History methadone 10 mg/mL oral 170 mg PO DAILY 10/13/24 10/13/24 10/12/24 05:37 History concentrate (Methadone Intensol) Physical Exam 2 Vital Signs and Narrative: Vital Signs: Last Vital Signs Temp 98.3 F 10/12/24 14:00 Pulse 83 10/12/24 14:00 Resp 14 10/12/24 14:00 BP 147/84 H 10/12/24 14:00 Pulse Ox 93 10/12/24 14:00 O2 Del Method Nasal Cannula 10/12/24 14:00 O2 Flow Rate 2 10/12/24 14:00 BMI result Body Mass Index 46.7 Const: Other: General: AO X 3, no acute distress Resp: CTA bilateral CVS: S1,S2,RRR GI: +BS, NT, no distention Skin: No rash Neuro: motor grossly intact Psych: appropriate affect Results Labs 10/12/24 10:49 10/13/24 07:16 Labs: Laboratory Results - last 24 hr 10/12/24 10/12/24 10/12/24 10:49 10:50 10:56 MCV 90.2 MCH 29.0 MCHC 32.2 RDW 14.1 Plt Count 215 D MPV 9.7 Immature Gran % (Auto) 0.3 Neut % (Auto) 59.2 Lymph % (Auto) 31.9 [place] % (Auto) 7.2 Eos % (Auto) 0.8 Baso % (Auto) 0.6 Lymph # (Auto) 2.1 [place] # (Auto) 0.5 Eos # (Auto) 0.1 Baso # (Auto) 0.0 Abs Immat Gran (auto) 0.02 Absolute Neuts (auto) 3.9 Absolute Nucleated RBC 0.000 Nucleated RBC % (auto) 0.0 VBG pH 7.45 H VBG pCO2 51 VBG pO2 82 VBG HCO3 36 H VBG O2 Saturation 96.0 VBG Base Excess 11.0 Anion Gap 11 L Estim Creat Clear Calc 128.8 Estimated GFR > 60 Random Glucose 108 Calcium 9.1 Magnesium 2.1 Total Bilirubin 0.3 Direct Bilirubin 0.1 AST 33 H ALT 20 Alkaline Phosphatase 102 Ammonia 67 H Troponin I High Sens < 2.7 C-Reactive Protein 1.06 H B-Natriuretic Peptide < 10 Total Protein 7.4 Albumin 4.0 Urine Color Urine Appearance Urine pH Ur Specific [place] Urine Protein Urine Glucose (UA) Urine Ketones Urine Blood Urine Nitrite Ur Leukocyte Esterase Urine Opiates Screen Ur Buprenorphine Scrn Ur Oxycodone Screen Urine Methadone Screen Urine Fentanyl Screen Ur Barbiturates Screen Valproic Acid < 12.5 L Ur Phencyclidine Scrn Ur Amphetamines Screen U Benzodiazepines Scrn Urine Cocaine Screen U Marijuana (THC) Screen Ethyl Alcohol < 10 10/12/24 10/12/24 10/12/24 13:38 13:39 14:27 MCV MCH MCHC RDW Plt Count MPV Immature Gran % (Auto) Neut % (Auto) Lymph % (Auto) [place] % (Auto) Eos % (Auto) Baso % (Auto) Lymph # (Auto) [place] # (Auto) Eos # (Auto) Baso # (Auto) Abs Immat Gran (auto) Absolute Neuts (auto) Absolute Nucleated RBC Nucleated RBC % (auto) VBG pH 7.46 H VBG pCO2 45 VBG pO2 186 VBG HCO3 32 H VBG O2 Saturation 100.0 VBG Base Excess 7.6 Anion Gap Estim Creat Clear Calc Estimated GFR Random Glucose Calcium Magnesium Total Bilirubin Direct Bilirubin AST ALT Alkaline Phosphatase Ammonia Troponin I High Sens C-Reactive Protein B-Natriuretic Peptide Total Protein Albumin Urine Color Yellow Urine Appearance Clear Urine pH 5.0 Ur Specific [place] 1.015 Urine Protein Negative Urine Glucose (UA) Negative Urine Ketones Negative Urine Blood Negative Urine Nitrite Negative Ur Leukocyte Esterase Negative Urine Opiates Screen Not Detected Ur Buprenorphine Scrn Not Detected Ur Oxycodone Screen Not Detected Urine Methadone Screen Positive H Urine Fentanyl Screen Not Detected Ur Barbiturates Screen Not Detected Valproic Acid Ur Phencyclidine Scrn Not Detected Ur Amphetamines Screen Not Detected U Benzodiazepines Scrn Not Detected Urine Cocaine Screen Not Detected U Marijuana (THC) Screen Not Detected Ethyl Alcohol Imaging Radiologist's Impressions: Impressions Head CT 10/12/24 08:47 IMPRESSION: No acute intracranial process seen. Electronically signed by: Sundeep Iqbal MD 10/12/2024 10:11 AM EDT RP Chest X-Ray 10/12/24 10:00 IMPRESSION: Low lung volumes. No acute cardiopulmonary abnormality. Electronically signed by: Slim Manzanares MD 10/12/2024 10:11 AM EDT RP Assessment and Plan (1) Hyperammonemia: Status: Acute (2) Acute encephalopathy: Status: Acute Plan 44/F with opioid use disorder on methadone, hep c here with hyperammonemia and somnolence Hyperammonia with somnolence not quite encephalopathic likely from chronic liver disease from hep see and psssible fatty liver lactulose 20 gm bid, monitor resp status chronic opioid use disorder continue methadone addiction med consult morbib obesity Self report THOMAS should have + full code regular diet lovenox for dvt prophylaxis Quality Stroke Does the patient have a stroke diagnosis?: No VTE Prior VTE?: No VTE Risk Level:: Medical - moderate - high VTE Device Contraindication: Treatment Not Indicated VTE Drug Contraindication: N/A - Med Ordered
[2024-10-12] MEDS: Enoxaparin Sodium 40 MG/0.4 ML SYRINGE SUBCUT (16:18)
[2024-10-12] MEDS: 0.9 % Sodium Chloride Flush 3 ML SYRINGE IVFLUSH ×2 (16:19→20:42)
--- NOTE | 2024-10-12 16:41 | PHA.MEDREC ---
Addendum entered by Swapna Curiel RPh 10/12/24 16:48: REVIEWED BY PHARMACIST Original Note: Pharmacy Consult ? Medication Reconciliation Pharmacy has completed the medication reconciliation. Utilized list from [facility] in [place] to confirm med rec. Pt confirmed she took her morning medications this morning.
[2024-10-12] MEDS: Gabapentin 400 MG CAPSULE 800 MG PO (20:40)
[2024-10-12] MEDS: Prazosin HCL 1 MG CAPSULE 2 MG PO (20:40)
[2024-10-12] MEDS: Melatonin 3 MG TABLET 6 MG PO (20:41)
[2024-10-12] MEDS: QUEtiapine Fumarate 200 MG TABLET PO (20:41)
[2024-10-13 03:49] VITALS: BP 117/72; PULSE 73; RESP 16; TEMP 36.6; O2SAT 95
[2024-10-13] MEDS: Omeprazole 20 MG CAPSULE.DR PO (06:06)
[2024-10-13 07:24] VITALS: BP 122/63; PULSE 79; RESP 16; TEMP 36.3; O2SAT 94
[2024-10-13] MEDS: Furosemide 20 MG TABLET PO (07:52)
[2024-10-13] MEDS: Nicotine 21 MG PATCH.TD24 TRANSDERMA (07:52)
[2024-10-13] MEDS: Atorvastatin Calcium 40 MG TABLET PO (07:52)
[2024-10-13] MEDS: Escitalopram Oxalate 20 MG TABLET PO (07:52)
[2024-10-13] MEDS: Gabapentin 400 MG CAPSULE 800 MG PO (07:52)
[2024-10-13] MEDS: 0.9 % Sodium Chloride Flush 3 ML SYRINGE IVFLUSH (07:53)
[2024-10-13] MEDS: Lactulose 20 GM/30 ML SOLUTION PO (07:53)
[2024-10-13 08:04] LABS: Alanine Aminotransferase 16 U/L (0-31); Albumin Level 3.5 g/dL (3.5-5.0); Alkaline Phosphatase 97 U/L (39-117); Anion Gap 11 (12-20); Aspartate Amino Transferase 25 U/L (5-31); Bilirubin Total 0.6 mg/dL (0.0-1.0); Blood Urea Nitrogen 12 mg/dL (9-16); Calcium 9.3 mg/dL (8.4-10.2); Carbon Dioxide 31 mmol/L (22-29); Chloride 103 mmol/L (96-108); Creatinine Clr Calc Pharmacy 112.9; Estimated Glomerular Filt Rate > 60; Glucose Random 164 mg/dL (60-115); Potassium 3.9 mmol/L (3.3-5.1); Sodium 141 mmol/L (135-145); Total Protein 7.1 g/dL (6.5-8.0)
[2024-10-13 09:00] LABS: Ammonia 60 umol/L (13-55)
--- NOTE | 2024-10-13 09:02 | HE.PHANOTE ---
METHADONE Pt last received 170mg on 10/12/24 @ 0537 at [facility] ([phone]), per Jackie Ames.
--- NOTE | 2024-10-13 09:23 | PM.DS ---
DS: Providers Provider Date of Service: 10/13/24 Date of admission: 10/12/24 15:10 Date of discharge: 10/13/24 Primary care physician: Unknown Physician DS: Diagnosis Discharge Diagnosis (1) Hyperammonemia: Status: Acute (2) Acute encephalopathy: Status: Acute DS: Summary Hospital Course Hospital Course: admission hpi Chief Complaint: Oversedation, sent from methadone clinic 44 yo female with opioid dependence on methadone, history of hep C, possible THOMAS. She went to methadone clinic and received her usual dose of methadone 160 mg, she has been on 200 mg daily for years and was reduced about 4 weeks ago. At the clinic today they thoght she was more somnlent and ssent to the ED. She has no hypoxia, ammonia level is 67. HCT is negative, UA no UTI, she's given lactulose 20 gm. She is alert and oreinted x 3, and was eating a sandwich when I saw her. she tends to want to fall asleep easily. VBG showed no CO2 retention. She also tells me that she takes seroquel 25 mg daily she took earlier and thinks that is contributing to her somnolence. hospital course: Patient was observed overnight, given lactulose for elevated ammonia level, ammonia down to 60 from 67, has no overt encephalopathy at this time and not somnolent. Will discharge with lactulose 20 bid, and outpatient follow up with PCP, and referal for outpatient sleep study to rule out THOMAS Time Attestation Discharge Coordination Time (in mins): 35 Quality: Safe Use of Opioids Does Pt have an Active Cancer Diagnosis on the Problem List?: No Quality: Stroke Does the patient have a stroke diagnosis?: No Physical Exam Vital Signs: Vital Signs: Last Vital Signs Temp 97.4 F 10/13/24 07:24 Pulse 79 10/13/24 07:24 Resp 16 10/13/24 07:24 BP 122/63 10/13/24 07:24 Pulse Ox 94 10/13/24 07:24 O2 Del Method Room Air 10/13/24 07:24 O2 Flow Rate 2 10/13/24 03:49 BMI result Body Mass Index 44.6 DS: Data Data Completed and Pending Labs on day of discharge: Laboratory Results - last 24 hr 10/12/24 10/12/24 10/12/24 10:49 10:50 10:56 WBC 6.6 RBC 4.20 Hgb 12.2 Hct 37.9 MCV 90.2 MCH 29.0 MCHC 32.2 RDW 14.1 Plt Count 215 D MPV 9.7 Immature Gran % (Auto) 0.3 Neut % (Auto) 59.2 Lymph % (Auto) 31.9 [place] % (Auto) 7.2 Eos % (Auto) 0.8 Baso % (Auto) 0.6 Lymph # (Auto) 2.1 [place] # (Auto) 0.5 Eos # (Auto) 0.1 Baso # (Auto) 0.0 Abs Immat Gran (auto) 0.02 Absolute Neuts (auto) 3.9 Absolute Nucleated RBC 0.000 Nucleated RBC % (auto) 0.0 VBG pH 7.45 H VBG pCO2 51 VBG pO2 82 VBG HCO3 36 H VBG O2 Saturation 96.0 VBG Base Excess 11.0 Sodium 143 Potassium 4.0 Chloride 103 Carbon Dioxide 33 H Anion Gap 11 L BUN 11 Creatinine 0.64 Estim Creat Clear Calc 128.8 Estimated GFR > 60 Random Glucose 108 Calcium 9.1 Magnesium 2.1 Total Bilirubin 0.3 Direct Bilirubin 0.1 AST 33 H ALT 20 Alkaline Phosphatase 102 Ammonia 67 H Troponin I High Sens < 2.7 C-Reactive Protein 1.06 H B-Natriuretic Peptide < 10 Total Protein 7.4 Albumin 4.0 Urine Color Urine Appearance Urine pH Ur Specific [place] Urine Protein Urine Glucose (UA) Urine Ketones Urine Blood Urine Nitrite Ur Leukocyte Esterase Urine Opiates Screen Ur Buprenorphine Scrn Ur Oxycodone Screen Urine Methadone Screen Urine Fentanyl Screen Ur Barbiturates Screen Valproic Acid < 12.5 L Ur Phencyclidine Scrn Ur Amphetamines Screen U Benzodiazepines Scrn Urine Cocaine Screen U Marijuana (THC) Screen Ethyl Alcohol < 10 10/12/24 10/12/24 10/12/24 13:38 13:39 14:27 WBC RBC Hgb Hct MCV MCH MCHC RDW Plt Count MPV Immature Gran % (Auto) Neut % (Auto) Lymph % (Auto) [place] % (Auto) Eos % (Auto) Baso % (Auto) Lymph # (Auto) [place] # (Auto) Eos # (Auto) Baso # (Auto) Abs Immat Gran (auto) Absolute Neuts (auto) Absolute Nucleated RBC Nucleated RBC % (auto) VBG pH 7.46 H VBG pCO2 45 VBG pO2 186 VBG HCO3 32 H VBG O2 Saturation 100.0 VBG Base Excess 7.6 Sodium Potassium Chloride Carbon Dioxide Anion Gap BUN Creatinine Estim Creat Clear Calc Estimated GFR Random Glucose Calcium Magnesium Total Bilirubin Direct Bilirubin AST ALT Alkaline Phosphatase Ammonia Troponin I High Sens C-Reactive Protein B-Natriuretic Peptide Total Protein Albumin Urine Color Yellow Urine Appearance Clear Urine pH 5.0 Ur Specific [place] 1.015 Urine Protein Negative Urine Glucose (UA) Negative Urine Ketones Negative Urine Blood Negative Urine Nitrite Negative Ur Leukocyte Esterase Negative Urine Opiates Screen Not Detected Ur Buprenorphine Scrn Not Detected Ur Oxycodone Screen Not Detected Urine Methadone Screen Positive H Urine Fentanyl Screen Not Detected Ur Barbiturates Screen Not Detected Valproic Acid Ur Phencyclidine Scrn Not Detected Ur Amphetamines Screen Not Detected U Benzodiazepines Scrn Not Detected Urine Cocaine Screen Not Detected U Marijuana (THC) Screen Not Detected Ethyl Alcohol 10/13/24 10/13/24 07:16 08:42 WBC RBC Hgb Hct MCV MCH MCHC RDW Plt Count MPV Immature Gran % (Auto) Neut % (Auto) Lymph % (Auto) [place] % (Auto) Eos % (Auto) Baso % (Auto) Lymph # (Auto) [place] # (Auto) Eos # (Auto) Baso # (Auto) Abs Immat Gran (auto) Absolute Neuts (auto) Absolute Nucleated RBC Nucleated RBC % (auto) VBG pH VBG pCO2 VBG pO2 VBG HCO3 VBG O2 Saturation VBG Base Excess Sodium 141 Potassium 3.9 Chloride 103 Carbon Dioxide 31 H Anion Gap 11 L BUN 12 Creatinine 0.71 Estim Creat Clear Calc 112.9 Estimated GFR > 60 Random Glucose 164 H Calcium 9.3 Magnesium Total Bilirubin 0.6 Direct Bilirubin AST 25 ALT 16 Alkaline Phosphatase 97 Ammonia 60 H Troponin I High Sens C-Reactive Protein B-Natriuretic Peptide Total Protein 7.1 Albumin 3.5 Urine Color Urine Appearance Urine pH Ur Specific [place] Urine Protein Urine Glucose (UA) Urine Ketones Urine Blood Urine Nitrite Ur Leukocyte Esterase Urine Opiates Screen Ur Buprenorphine Scrn Ur Oxycodone Screen Urine Methadone Screen Urine Fentanyl Screen Ur Barbiturates Screen Valproic Acid Ur Phencyclidine Scrn Ur Amphetamines Screen U Benzodiazepines Scrn Urine Cocaine Screen U Marijuana (THC) Screen Ethyl Alcohol Discharge Plan Discharge Anticipated Discharge Date/Time: 10/13/24 09:15 Patient Disposition: Home, Self-Care Discharge Diagnosis: Hyperammonemia, encephalopathy Referrals: Physician,Unknown J [Primary Care Provider] - 1 Week Discharge Medications: New lactulose 10 gram/15 mL Solution 20 g PO BID Qty: 3000 0RF Continued quetiapine 25 mg tablet 25 mg PO TID PRN (Reason: Agitation) quetiapine 200 mg tablet 200 mg PO BEDTIME pramipexole 0.5 mg tablet 0.5 mg PO DAILY PRN (Reason: Restless Leg(S)) furosemide 20 mg tablet 20 mg PO DAILY diclofenac sodium 50 mg tablet,delayed release (DR/EC) 50 mg PO TID PRN (Reason: Pain) albuterol sulfate [Ventolin HFA] 90 mcg/actuation HFA aerosol inhaler 2 puff INHALATION QID PRN (Reason: Shortness Of Breath Or Wheezing) diclofenac sodium 1 % Gel 2 g TOPICAL QID PRN (Reason: Pain) Rx Instructions: apply to single elbow, wrist or hand; for hand includes palm/fingers/back of hand Caplyta 42 mg capsule 42 mg PO BEDTIME methadone [Methadone Intensol] 10 mg/mL Concentrate 170 mg PO DAILY atorvastatin 40 mg tablet 40 mg PO DAILY gabapentin 800 mg tablet 800 mg PO TID pantoprazole 40 mg tablet,delayed release (DR/EC) 40 mg PO DAILY@0630 prazosin 2 mg capsule 2 mg PO BEDTIME escitalopram oxalate 20 mg tablet 20 mg PO DAILY Discharge Orders: Discharge Order (Routine); Ordered 10/13/24 Ordered By: Omid Marin Diet: Advance to usual diet Activity on Discharge: As tolerated Stand Alone Forms: Patient Portal Discharge page Print Language: Hong [place]er Care Plan Goals: recovery from high ammonia, and encephalopathy Health Concerns: hyperammonemia, encephalopathy, chronic opioid dependence, hep c Plan of Treatment: take lactulose as directed, stop if you have diarrhea follow up with your primary care doctor as you doctor to make a referal for you to have a sleep study Assessment: see above
[2024-10-13] MEDS: methADONE HCl 20 MG/2 ML ORAL.CONC 170 MG PO (10:04)
== END 2024-10-13 13:16 | disposition home or self-care (01) ==
LOC: HO.ED 14:43 → HO.EDOVER 15:17 → HO.S3 16:19
PROVIDERS: Admitting Provider Student in an Organized Health Care Education/Training Program; Emergency Provider Emergency Medicine; Visit Provider Internal Medicine
DX: E72.20 Disorder of urea cycle metabolism, unspecified (principal); G93.40 Encephalopathy, unspecified; R06.00 Dyspnea, unspecified; F39 Unspecified mood [affective] disorder; R40.0 Somnolence; F11.20 Opioid dependence, uncomplicated; E66.9 Obesity, unspecified; Z68.41 Body mass index [BMI] 40.0-44.9, adult; Z86.73 Personal history of transient ischemic attack (TIA), and cerebral infarction without residual deficits; Z79.899 Other long term (current) drug therapy
CPT/HCPCS: 36415; 70450; 71045; 80048; 80053; 80076; 80164; 80307; 81003; 82140; 82803; 83735; 83880; 84484; 85025; 86140; 93005; 96372; 99221; 99285; J1650

== ENCOUNTER → 2024-10-12 09:28 | Outpatient (BNV) | payer OTHER, SELFPAY | PROVIDERS: Admitting Provider Student in an Organized Health Care Education/Training Program; Emergency Provider Emergency Medicine; Visit Provider Internal Medicine | DX: R94.31 Abnormal electrocardiogram [ECG] [EKG] (principal); Z13.6 Encounter for screening for cardiovascular disorders | CPT/HCPCS: 93010 ==

== ENCOUNTER → 2024-10-12 09:29 | Outpatient (BNV) | payer OTHER, SELFPAY | PROVIDERS: Emergency Provider Emergency Medicine; Visit Provider Radiology Diagnostic Radiology | DX: R41.82 Altered mental status, unspecified (principal); R06.00 Dyspnea, unspecified | CPT/HCPCS: 70450; 71045 ==

== ENCOUNTER → 2024-10-12 15:10 | Outpatient (BNV) | payer OTHER, SELFPAY | PROVIDERS: Admitting Provider Student in an Organized Health Care Education/Training Program; Emergency Provider Emergency Medicine; Visit Provider Internal Medicine | DX: E72.20 Disorder of urea cycle metabolism, unspecified (principal); G93.40 Encephalopathy, unspecified | CPT/HCPCS: 99223; 99239 ==

== ENCOUNTER 2024-12-31 19:52 | Emergency (ER) | payer OTHER, SELFPAY ==
--- OUTSIDE RECORDS SUMMARY | 2024-12-27 06:00 | XMS_ITS ---
Author Organization [facility] Address [address] [place], [place] [phone] Care Team Providers Care Fermenter Helper Name Role Phone Nancy Renner Primary Care Provider [phone] Addis Nash Unavailable Encounters Encounter Location Date Provider Diagnosis [facility] [address] [place] [phone] 12/27/2024 Addis Nash Plan Of Treatment No Information Progress Notes * Zee GALVEZOB: 0 (44 yo F)Acc No.[id number]:12/27/2024 Case Management Patient: Eric HOANG Alicia Provider: Arielle Nash :1980 A ge:44 Y S ex:Female Date:12/27/2024 Address:[address] [place], [place] [phone] Pcp:Nancy GOODE Subjective: * Chief Complaints: * * Medical History: Objective: Assessment: Plan: * Treatment: * Images: Billing Information: * Visit Code: * Procedure Codes: Care Plan Details* * Electronic signature of Maurice Nash on 12/31/2024 at 08:50 PM EDT Sign off status: Pending * Provider: Arielle Nash Date: 12/27/2024 Generated for iDana wheeler/Kathy/eTchino on: 12/31/2024 08:50 PM EDT
[2024-12-31 19:56] VITALS: BP 173/92; PULSE 90; RESP 18; TEMP 36.2; O2SAT 95; BMI 46.7
--- NOTE | 2024-12-31 19:59 | ED_ITS ---
HPI - General Adult General Chief complaint: General Medical Stated complaint: detox meds and rehab Time Seen by Provider: 12/31/24 20:59 Source: patient Limitations: no limitations History of Present Illness ED Provider: Pamela Barrientos PA-C HPI narrative: 44-year-old female presents from A clinic given need for Klonopin refill. Patient's intake was today, she was unable to see the healthcare provider who we will be prescribing her medications. She will not see her until Tuesday. Related Data Home Medications ?Medication ?Instructions ?Recorded ?Confirmed atorvastatin 40 mg tablet 40 mg PO DAILY 05/26/2410/31 escitalopram oxalate 20 mg tablet 20 mg PO DAILY 05/2610/12/24 gabapentin 800 mg tablet 800 mg PO TID 05/26/2410/12 pantoprazole 40 mg tablet,delayed 40 mg PO DAILY@0630 05/26/24 10/12/24 release prazosin 2 mg capsule 2 mg PO BEDTIME 05/26/2410/31 albuterol sulfate 90 mcg/actuation 2 puff inhalation Q ID PRN 10/12/24 10/12/24 aerosol inhaler (Ventolin HFA) Shortness Of Breath Or Wheezing diclofenac sodium 1 % topical gel 2 g topical QID PRN Pain 10/12/24 10/12/24 diclofenac sodium 50 mg 50 mg PO TID PRN Pain 10/12/24 tablet,delayed release furosemide 20 mg tablet 20 mg PO DAILY swelling 10/3110/12/24 lumateperone 42 mg capsule 42 mg PO BEDTIME 10/12/24 0 10/12/24 (Caplyta) pramipexole 0.5 mg tablet 0.5 mg PO DAILY PRN Restless Leg(S) 10/12/24 10/12/24 quetiapine 200 mg tablet 200 mg PO BEDTIME 10/12/24 0 10/12/24 quetiapine 25 mg tablet 25 mg PO TID PRN Agitation 0 10/12/24 10/12/24 methadone 10 mg/mL oral 170 mg PO DAILY 10/13/2411/30 concentrate (Methadone Intensol) Previous Rx's ?Medication ?Instructions ?Recorded lactulose 10 gram/15 mL oral 20 g (30 mL) PO BID #3,00 0 mL 10/13/24 solution clonazepam 0.5 mg tablet (Klonopin) 0.5 mg PO BID #6 t abs 12/31/24 Allergies Allergy/AdvReac Type Severity Reaction Status Date / Time aspirin (ASA) Allergy Intermediate Hives Verified 12/31/24 19:59 Penicillins Allergy Dizziness Verified 12/31/24 19:59 Review of Systems 2 Review of Systems: Yes all other systems are reviewed and are negative Constitutional: Constitutional: Denies fatigue and Denies fever(s) Cardiovascular: Cardiovascular: Denies chest pain and Denies dyspnea Respiratory: Respiratory: Denies dyspnea Gastrointestinal: Gastrointestinal: Denies abdominal pain, Denies nausea and Denies vomiting Endocrine: Endocrine: Denies fatigue PMFSH Past Medical History Attestation statement: The following information was validated with the patient. Medical History Obesity hypoventilation syndrome THOMAS (obstructive sleep apnea) Asthma CVA (cerebral vascular accident) GERD (gastroesophageal reflux disease) Social History Social History Household Members: None Housing: Homeless Do you presently have visiting nurse or other home services: No Alcohol intake: former Comment: 1:1 sitter bedside for SI Patient Tobacco Use Status: Current everyday Tobacco user Tobacco use type: Cigarette Cigarettes Per Day: 3 Years Smoked: 32 Second Hand Smoke Exposure: Yes Substance Use Type: Opiates Advance Directives: No Advance Directives Information Provided: No Do you have a plan to hurt others: No Plan service: No Physical Exam ED Vital Signs: Vital Signs - 24 hr 12/31/24 19:56 12/31/24 20:27 12/31/24 22:04 Temperature 97.1 F 98.3 F 98.3 F Pulse Rate 90 84 83 Respiratory Rate 18 18 16 Blood Pressure 173/92 H 140/96 H 149/84 H Pulse Oximetry 95 94 94 Oxygen Delivery Method Room Air Room Air Room Air BMI result Body Mass Index 46.7 Const Other: Alert well-appearing Orientation/consciousness: patient oriented x3 Resp Effort & Inspection: normal respiratory effort Cardio Other: Normal peripheral perfusion Skin Other: Warm dry no rash Neuro General: patient oriented x3, gait normal, no focal motor deficits and CN's II- XI intact bilaterally Psych Other: Cooperative Course Course Course Narrative: Rapid medical examination performed in triage by Anne Arellano PA-C. Patient is a 44 year old assigned female at presenting to the emergency department with concerns of benzo withdrawal. Patient states she was recently told by her provider that she is no longer comfortable having her on klonopin and now the patient is out and feeling unwell. Detailed physical exam and review of systems are deferred to the nursing informatics clinical analyst. EKG, labs ordered. Patient placed back in the waiting room pending room availability and results. Medications Administered Discontinued Medications Generic Name Dose Route Start Last Admin Trade Name Chaparrita PRN Reason Stop Dose Admin Lorazepam 2 mg 12/31/24 21:00 12/31/24 21:07 Lorazepam 1 Mg Tablet PO 12/31/24 21:01 2 mg ONCE ONE Administration Procedures Procedure Narrative Procedure Narrative: Ultrasound-guided IV 20 gauge 1-3/4 inch IV placed in left upper extremity, adequate blood return, flushes well, secured with Tegaderm Medical Decision Making Medical Decision Making MDM Narrative: 44-year-old female presents from [facility] clinic given need for Klonopin refill. Patient's intake was today, she was unable to see the healthcare provider who we will be prescribing her medications. She will not see her until Tuesday. Problem: Psychiatric illness History: Per patient I have considered the following differential diagnoses: SI, HI, decompensated psychiatric illness, drug/alcohol intoxication Plan: Patient was sent here given need for Klonopin, she has a all of her other medications. For whatever reason, there will be a delay in her care, the healthcare provider at the facility can not assess her until Tuesday. In the event that she has to stay for medication adjustment, I will screen basic labs, ethanol and drug screen. Giving her a dose of Ativan. I have independently reviewed the following tests: Labs,: No leukocytosis, not anemic, no electrolyte abnormality, U tox positive for methadone which she is prescribed, ethanol negative at less than 10 Differential Diagnosis Differential Diagnoses: The differential diagnosis associated with the presentation includes See [facility] Admission/Observation Consideration of admission/observation: Escalation of care including admission/observation considered Not applicable Lab Data [facility] Lab Attestation statement: I reviewed the patient's lab results. 12/31/24 21:33 12/31/24 21:33 Labs: Lab Results 08/25/25 08/25/25 Range/Units 21:33 21:37 WBC 11.7 H (4.8-10.8) X10*3/uL RBC 4.23 (4.20-5.50) X10*6/uL Hgb 12.8 (12.0-16.0) g/dl Hct 39.6 (37.0-47.0) % MCV 93.6 (80.0-98.0) fL MCH 30.3 (27.0-33.0) pg MCHC 32.3 (31.0-35.0) g/dl RDW 13.2 (11.0-16.0) % Plt Count 203 (160-400) X10*3/uL MPV 9.6 (9.4-12.3) fL Immature Gran % (Auto) 0.8 H (0.0-0.4) % Neut % (Auto) 66.1 (45-73) % Lymph % (Auto) 25.2 (20-40) % Page % (Auto) 7.4 (2-11) % Eos % (Auto) 0.2 (0-4) % Baso % (Auto) 0.3 (0-2) % Lymph # (Auto) 3.0 (1.2-4.9) X10*3/uL Page # (Auto) 0.9 (0.1-1.2) X10*3/uL Eos # (Auto) 0.0 (0.0-0.4) X10*3/uL Baso # (Auto) 0.0 (0.0-0.2) X10*3/uL Abs Immat Gran (auto) 0.09 H (0.00-0.03) X10*3/uL Absolute Neuts (auto) 7.7 (2.0-8.3) x10*3/uL Absolute Nucleated RBC 0.000 (0.0-0.012) X10*3/uL Nucleated RBC % (auto) 0.0 (0.0-0.2) /100WBC Sodium 143 (135-145) mmol/L Potassium 4.2 (3.3-5.1) mmol/L Chloride 105 (96-108) mmol/L Carbon Dioxide 28 (22-29) mmol/L Anion Gap 14 (12-20) BUN 14 (9-16) mg/dL Creatinine 0.81 (0.5-1.4) mg/dL Estim Creat Clear Calc 101.7 Estimated GFR > 60 Random Glucose 197 H (60-115) mg/dL Calcium 8.5 D (8.4-10.2) mg/dL Magnesium 2.1 (1.6-2.6) mg/dL Total Bilirubin 0.2 (0.0-1.0) mg/dL AST 40 H (5-31) U/L ALT 40 H (0-31) U/L Alkaline Phosphatase 107 (39-117) U/L Total Protein 7.4 (6.5-8.0) g/dL Albumin 4.0 (3.5-5.0) g/dL Urine Opiates Screen Not Detected (Not Detect) Ur Buprenorphine Scrn Not Detected (Not Detect) ng/mL Ur Oxycodone Screen Not Detected (Not Detect) ng/mL Urine Methadone Screen Positive H (Not Detect) ng/mL Urine Fentanyl Screen Not Detected (Not Detect) Ur Barbiturates Screen Not Detected (Not Detect) Ur Phencyclidine Scrn Not Detected (Not Detect) Ur Amphetamines Screen Not Detected (Not Detect) U Benzodiazepines Scrn Not Detected (Not Detect) Urine Cocaine Screen Not Detected (Not Detect) U Marijuana (THC) Screen Not Detected (Not Detect) Ethyl Alcohol < 10 mg/dL Discharge Plan Discharge Clinical Impression: Anxiety Patient Disposition: Home, Self-Care Instructions: Anxiety (ED) Additional Instructions: I have refilled a short prescription for the Klonopin until you can see your medication prescriber on Tuesday. Prescriptions: New clonazepam [Klonopin] 0.5 mg tablet 0.5 mg PO BID Qty: 6 0RF No Action quetiapine 25 mg tablet 25 mg PO TID PRN (Reason: Agitation) quetiapine 200 mg tablet 200 mg PO BEDTIME pramipexole 0.5 mg tablet 0.5 mg PO DAILY PRN (Reason: Restless Leg(S)) furosemide 20 mg tablet 20 mg PO DAILY diclofenac sodium 50 mg tablet,delayed release (DR/EC) 50 mg PO TID PRN (Reason: Pain) albuterol sulfate [Ventolin HFA] 90 mcg/actuation HFA aerosol inhaler 2 puff INHALATION QID PRN (Reason: Shortness Of Breath Or Wheezing) diclofenac sodium 1 % Gel 2 g TOPICAL QID PRN (Reason: Pain) Rx Instructions: apply to single elbow, wrist or hand; for hand includes palm/fingers/back of hand Caplyta 42 mg capsule 42 mg PO BEDTIME methadone [Methadone Intensol] 10 mg/mL Concentrate 170 mg PO DAILY lactulose 10 gram/15 mL Solution 20 g PO BID Qty: 3000 0RF atorvastatin 40 mg tablet 40 mg PO DAILY gabapentin 800 mg tablet 800 mg PO TID pantoprazole 40 mg tablet,delayed release (DR/EC) 40 mg PO DAILY@0630 prazosin 2 mg capsule 2 mg PO BEDTIME escitalopram oxalate 20 mg tablet 20 mg PO DAILY Print Language: Yakut
--- NOTE | 2024-12-31 20:00 | ECG_ITS ---
Test Reason : MEDICAL CLEARENCE Blood Pressure : */* mmHG Vent. Rate : 91 BPM Atrial Rate : 91 BPM P-R Int : 142 ms QRS Dur : 82 ms QT Int : 354 ms P-R-T Axes : 65 63 55 degrees QTcB Int : 435 ms Normal sinus rhythm T wave abnormality, consider anterior ischemia Abnormal ECG When compared with ECG of 12-Oct-2024 09:34, No significant change was found Referred By: Anne Arellano Electronically Signed By: LISSY DAVIDSON
[2024-12-31 20:27] VITALS: BP 140/96; PULSE 84; RESP 18; TEMP 36.8; O2SAT 94
--- OUTSIDE RECORDS SUMMARY | 2024-12-31 20:50 | XMS_ITS | Clinical Summary ---
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 At [facility] in [place] Active famotidine (Pepcid) 20 MG tablet Take [...] been using heroin and crack. Went to [facility]. No procedures. Taking atorvastatin and clopidogrel. No residual deficits. GERD (gastroesophageal reflux disease) Chronic pain of right knee 10/05/2023 Overview (10/05/2023): History of needing steroid injections Chronic left shoulder pain 10/05/2023 Chronic midline low back pain without sciatica 0 10/05/2023 Overview (10/05/2023): History of surgery History of substance abuse 10/05/2023 Overview (10/05/2023): Had used heroin, crack. Living in [facility] ([place], [place]) now (10/05/23). Mild intermittent asthma without complication Depression 10/05/2023 History of seizure 10/05/2023 Overview (10/05/2023): Once, when using drugs THOMAS (obstructive sleep apnea) 10/05/2023 Overview (10/05/2023): Noticed nocturnal hypoxemia at hospital; needs PSG Methadone maintenance therapy patient 10/05/2023 Social History Tobacco Use Types Packs/Day Years [...] 84 10/05/2023 8:57 AM EDT Temperature 36.4 C (97.6 F) 10/05/2023 8:57 AM EDT Respiratory Rate 18 10/05/2023 8:57 AM EDT [...] Use Screening 1991 Family Planning (PISQ) 07/09/1994 HPV Vaccines (1 - 3-dose series) 07/09/1994 Hepatitis C Screening 07/09/1997 Hepatitis B Vaccines (1 of 3 - 19+ 3-dose series) 07/09/1998 Pneumococcal Vaccine: Pediatrics (0 to 5 Years) and At-Risk Patients (6 to 49) Years (1 of 2 - PCV) 07/09/1998 Pap Smear 07/09/2000 Cervical Cancer Screening 07/09/2009 HPV/Cotest 07/09/2009 DTaP/Tdap/Td Vaccines (1 - Tdap) 12/31/2015 12/30/2015 Mammogram 2019 COVID-19 Vaccine (2 - 2023-2 5 season) 2024 03/09/2023 Tobacco Screening 10/04/2024 10/05/2023 Influenza Vaccine (#1) 2025 , 04/08/2022, 07/16/2017 Zoster Vaccines (1 of 2) [...] patient's age to complete this topic [place] [address] [place] [address] [facility] STAND[facility]
--- OUTSIDE RECORDS SUMMARY | 2024-12-31 20:51 | XMS_ITS | Clinical Summary ---
Author Organization [facility] Address [address] [place] [address] Care Team Providers Care Paper Deliverer Name Role Phone PasserDary Primary Care Provider [phone] Allergies Active Allergy Reactions Criticality Noted Date Comments Aspirin Unknown 09/10/2024 Medications No known medications Active Problems Problem Noted Date Diagnosed Date Frequent falls 09/17/2024 Overview (09/17/2024): - patient has shakes likely 2/2 drug use which prompts her to fall. - Bedside ambulation with RN, PT consult if indicated - no traumatic injuries Assessment & Plan (09/17/2024 9:41 AM EDT): - patient has shakes likely 2/2 drug use which prompts her to fall. - Bedside ambulation with RN, PT consult if indicated - no traumatic injuries Substance use disorder 09/17/2024 Overview (09/17/2024): - last used crack 5/1. - follows at [facility] Assessment & Plan (09/17/2024 9:41 AM EDT): - last used crack 5/1. - follows at [facility] - patient can return to [facility] facility. History of DVT (deep vein thrombosis) 09/17/2024 Overview (09/17/2024): - patient self reports history of ?dvt/'blood clots'.. none documented in EMR - on plavix and LVX 40 as outpatient - defer to prescriber on need for dvt ppx on d/c. - recommend dvt ppx while in house. Assessment & Plan (09/17/2024 9:42 AM EDT): - patient self reports history of ?dvt/'blood clots'.. none documented in EMR - on plavix and LVX 40 as outpatient - defer to prescriber on need for dvt ppx on d/c. - recommend dvt ppx while in house. Social History Tobacco Use Types Packs/Day Years Used Date Smoking Tobacco: Never Assessed Comments Unknown Sex and Gender Information Value Date Recorded Sex Assigned at Female 09/17/2024 6:39 AM EDT Legal Sex Female 10:27 PM EDT Gender Identity Female 09/17/2024 6:39 AM EDT Sexual Orientation Not on file Last Filed Vital Signs Vital Sign Reading Time Taken Comments Blood Pressure 131/95 09/17/2024 1:31 PM EDT Pulse 98 09/17/2024 1:31 PM EDT Temperature 37.2 C (98.9 F) 09/17/2024 5:51 AM EDT Respiratory Rate 20 09/17/2024 1:31 PM EDT Oxygen Saturation 98% 09/17/2024 1:31 PM EDT Inhaled Oxygen Concentration - - Weight 46.7 kg (103 lb) 09/10/2024 10:45 PM EDT Height 154 cm (5' 0.63 ) 09/10/2024 10:45 PM EDT Body Mass Index 19.7 09/10/2024 10:45 PM EDT Plan of Treatment Health Maintenance Due Date Last Done Comments Cervical Cancer Screening 1979 Cologuard 1979 Colon Cancer Screening 1979 Colonoscopy 1979 FOBT / Fit Test 1979 HIV Screening 1979 HPV and Pap Smear 1979 Hepatitis C Screening 1979 Pap Smear 1979 Sigmoidoscopy 1979 Varicella Vaccines (1 of 2 - 13+ 2-dose series) 07/09/1992 Hepatitis B Vaccines (1 of 3 - 19+ 3-dose series) 07/09/1998 DTaP,Tdap,and Td Vaccines (1 - Tdap) 07/09/2001 Mammogram 2019 COVID-19 Vaccine (2023-2 5 season) 2024 Alcohol/Substance Use Screening 05/09/2024 Depression Screening and Follow-Up 05/09/2024 Social Drivers of Health Davina ual Screening 05/09/2024 Influenza Vaccine (#1) 2025 RSV Vaccine (60+ years old a nd patients) (1 - 1-dose 75+ series) 07/09/2054 Pneumococcal Vaccine: Pediat yong (0-5 Years) and At-Risk Patients (6-50 Years) Aged Out No longer eligible b ased on patient's age to complete this topic Insurance [facility] MEDICAID Care Teams Paper Deliverer Relationship Specialty Start Date End Date Dary Maradiaga [address] [place] [id number] PCP - General 09/10/24
--- OUTSIDE RECORDS SUMMARY | 2024-12-31 20:51 | XMS_ITS | Patient Health Record ---
Author Organization [facility] Address [address], [place] [id number] Care Team Providers Care Security Intern Name Role Phone Nancy Renner Primary Care Provider Addis Nash Unavailable [phone] Allergies Allergen (clinical drug ingredient) Drug/Non Drug Allergy documented on EMR Reaction Allergy Type Onset Date Status aspirin aspirin vomiting Drug Allergy Active Reason For Referral No Information Medications Medication SIG (Take, Route, Fr equency, Duration) Notes Start Date End Date Status busPIRone 5 mg 1 tab(s) orally 3 times a day 05/3005/09/2024 Active Senna Lax 8.6 mg 2 tab(s) orally once a day (at bedtime) prn 05/09/2024 05/09/2024 Active Flexeril 10 mg 1 tab(s) orally 3 ti mes a day for 30 day(s) 07/26/2013 Active loratadine 10 mg 1 tab(s) orally once a day for 30 day(s) 07/26/2013 Active Naprosyn 500 mg 1 tab(s) orally 2 ti mes a day prn with food for 30 day(s) 05/08/2013 Acti ve raNITIdine 150 mg 1 cap(s) orally 2 ti mes a day prn 04/26/2013 05/09/2024 Active Flonase 0.05 mg/inh 1 spray(s) intranasa lly once a day 05/30/2013 05/09/2024 Active Immunizations Vaccine Route Administration Date Status Comme nts Influenza Unknown 04/26/2013 Administered Social History Tobacco Use: Social History Observation Description Date Details (start date - stop date) Current Smoker NA - NA Tobacco Use Assessment MU Question Answer Notes What is your current smoking status? current smo ker How often do you smoke? every day How many cigarettes a day do you smoke? 6-10 How soon after you wake up do you smoke your fir st cigarette? Within 5 minutes Are you interested in quitting? ready to quit Patient counseled on the nabila garcia of tobacco use and advised to quit: 07/28/2013 GK Problems Problem Type SNOMED Code ICD Code Onset Dates Problem Status W/U Status Risk Notes Problem Polysubstance dependence (63403125) Polysubstance dependence (304.90) Active confirmed Problem Otitis media with effusion (88200388) Otitis media with effusion (381.4) Active confirmed Problem Constipation (14581473) Constipation not elsewhere classified (564.09) Active confirmed Problem Irritable bowel syndrome (61202683) IBS [Irritable bowel syndrome] (564.1) Active confirmed Problem Back pain (795845281) Back pain (724.5) Active confirmed Problem Tobacco use (404269046) Tobacco use disorder (305.1) Active confirmed Problem Problem behavior (684823252) MENTAL/BEHAVIOR PROB NOS (V40.9) Active confirmed Problem Gastroesophageal reflux disease (222365249) GERD (530.81) Active confirmed Encounters Encounter Location Date Provider Diagnosis [facility] [address] [place] [phone] 11/21/2024 Addis Nash Plan Of Treatment Pending Test Test Name Order Date CBC - [facility] 05/31/2013 GC, DNA Urine - [facility] 05/31/2013 HIV 05/31/2013 Comprehensive Metabolic Panel - [facility] 05/31/2013 Thyroid Panel[facility] 05/31/2013 Chlamydia, DNA Urine - [facility] 05/31/19 14 Treponemal AB with reflex to RPR 014 Lipid Profile (fasting or non) - [facility] 05/31/2013 Insurance Providers Payer Name Payer Address Payer Phone Subscriber Number Group Number Insured Name Patient Relationship to Insured Coverage Start Date Coverage End Date [place] [address] [place] [address] [id number] Alicia Ambriz Self - patient is the insured Medical (General) History Medical History History ICD Code asthma nerve pain Mirena inserted 01/19 preeclampsia/ full term L# and L$ back slipped / bulging disc partially deaf L ear : last 5 yrs. Acid Reflux/hx ulcer in stomach 11/18 Hx: Hx of CHANG III (prior to 2007-233.1) Anxiety Disorder NOS Buspar 5mg 1-2 tabs PO prn BID, MDD: amitriptyline 25mg @ hs 2008 prior PCP Surgical History Surgery Date(Month/Year) tubes clamped 2006
[2024-12-31 21:36] LABS: MANUAL DIFF FLAG NO
[2024-12-31 21:38] LABS: Hematocrit 39.6 % (37.0-47.0); Hemoglobin 12.8 g/dl (12.0-16.0); Imm Gran Abs Auto 0.09 X10*3/uL (0.00-0.03); Imm Gran Pct Auto 0.8 % (0.0-0.4); Lymphocytes Absolute Auto 3.0 X10*3/uL (1.2-4.9); Mean Corpuscular HGB Conc 32.3 g/dl (31.0-35.0); Mean Corpuscular Hemoglobin 30.3 pg (27.0-33.0); Mean Corpuscular Volume 93.6 fL (80.0-98.0); NRBC Abs Auto 0.000 X10*3/uL (0.0-0.012); NRBC Pct Auto 0.0 /100WBC (0.0-0.2); Platelet Count 203 X10*3/uL (160-400); Red Blood Count 4.23 X10*6/uL (4.20-5.50); White Blood Count 11.7 X10*3/uL (4.8-10.8)
[2024-12-31 21:52] LABS: Cannabinoid Screen Urine Not Detected (Not Detect)
[2024-12-31 21:58] LABS: Alanine Aminotransferase 40 U/L (0-31); Albumin Level 4.0 g/dL (3.5-5.0); Alkaline Phosphatase 107 U/L (39-117); Anion Gap 14 (12-20); Aspartate Amino Transferase 40 U/L (5-31); Blood Urea Nitrogen 14 mg/dL (9-16); Calcium 8.5 mg/dL (8.4-10.2); Carbon Dioxide 28 mmol/L (22-29); Chloride 105 mmol/L (96-108); Creatinine Clr Calc Pharmacy 101.7; Estimated Glomerular Filt Rate > 60; Magnesium 2.1 mg/dL (1.6-2.6); Potassium 4.2 mmol/L (3.3-5.1); Sodium 143 mmol/L (135-145); Total Protein 7.4 g/dL (6.5-8.0)
[2024-12-31 22:04] VITALS: BP 149/84; PULSE 83; RESP 16; TEMP 36.8; O2SAT 94
[2024-12-31 23:25] VITALS: BP 149/84; PULSE 83; RESP 16; TEMP 36.8; O2SAT 94
== END 2024-12-31 23:37 | disposition home or self-care (01) ==
PROVIDERS: Physician Assistant Medical; Emergency Provider Emergency Medicine
DX: F41.9 Anxiety disorder, unspecified (principal); R94.31 Abnormal electrocardiogram [ECG] [EKG]; Z51.81 Encounter for therapeutic drug level monitoring; Z79.899 Other long term (current) drug therapy; F17.210 Nicotine dependence, cigarettes, uncomplicated
CPT/HCPCS: 36415; 80053; 80307; 83735; 85025; 93005; 99285

== ENCOUNTER → 2024-12-31 20:00 | Outpatient (BNV) | payer OTHER, SELFPAY | PROVIDERS: Emergency Provider Emergency Medicine; Visit Provider Internal Medicine | DX: R94.31 Abnormal electrocardiogram [ECG] [EKG] (principal); I10 Essential (primary) hypertension | CPT/HCPCS: 93010 ==

== ENCOUNTER 2025-01-01 11:48 | Emergency (ER) | payer OTHER, SELFPAY ==
--- OUTSIDE RECORDS SUMMARY | 2024-12-27 06:00 | XMS_ITS ---
Author Organization [facility] Address [address] [place], [place] [id number] Care Team Providers Care Tax Professional Name Role Phone Nancy Renner Primary Care Provider [phone] Addis Nash Unavailable Encounters Encounter Location Date Provider Diagnosis [facility] [address] [place] [phone] 12/27/2024 Addis Nash Plan Of Treatment No Information Progress Notes * Zee GALVEZOB: 0 (44 yo F)Acc No.[id number]:12/27/2024 Case Management Patient: Eric HOANG Alicia Provider: Arielle Nash :1980 A ge:44 Y S ex:Female Date:12/27/2024 Address:[address] [place], [place] [phone] Pcp:Nancy GOODE Subjective: * Chief Complaints: * * Medical History: Objective: Assessment: Plan: * Treatment: * Images: Billing Information: * Visit Code: * Procedure Codes: Care Plan Details* * Electronic signature of Maurice Nash on 01/01/2025 at 04:46 PM EDT Sign off status: Pending * Provider: Arielle Nash Date: 12/27/2024 Generated for Diana wheeler/Kathy/Cristina on: 01/01/2025 04:46 PM EDT
[2025-01-01 12:17] VITALS: BP 142/94; PULSE 100; RESP 16; TEMP 37.3; O2SAT 94; BMI 51.4
--- NOTE | 2025-01-01 12:26 | ED_ITS ---
HPI - General Adult General Chief complaint: General Medical Stated complaint: From program, abnormal vitals Time Seen by Provider: 01/01/25 16:31 Source: patient Mode of arrival: ambulatory Limitations: no limitations History of Present Illness ED Provider: Dr. Kristie Franco HPI narrative: Patient comes to the emergency room from a intermediate. According to the patient staff, patient's blood pressure was in the 150s and therefore she had to come to the emergency room to get cleared for hypertension. To patient's knowledge she has never been diagnosed with hypertension. Related Data Home Medications ?Medication ?Instructions ?Recorded ?Confirmed atorvastatin 40 mg tablet 40 mg PO DAILY 05/26/2410/31 escitalopram oxalate 20 mg tablet 20 mg PO DAILY 05/2610/12/24 gabapentin 800 mg tablet 800 mg PO TID 05/26/2410/12 pantoprazole 40 mg tablet,delayed 40 mg PO DAILY@0630 05/26/24 10/12/24 release prazosin 2 mg capsule 2 mg PO BEDTIME 05/26/2410/31 albuterol sulfate 90 mcg/actuation 2 puff inhalation Q ID PRN 10/12/24 10/12/24 aerosol inhaler (Ventolin HFA) Shortness Of Breath Or Wheezing diclofenac sodium 1 % topical gel 2 g topical QID PRN Pain 10/12/24 10/12/24 diclofenac sodium 50 mg 50 mg PO TID PRN Pain 10/12/24 tablet,delayed release furosemide 20 mg tablet 20 mg PO DAILY swelling 10/3110/12/24 lumateperone 42 mg capsule 42 mg PO BEDTIME 10/12/24 0 10/12/24 (Caplyta) pramipexole 0.5 mg tablet 0.5 mg PO DAILY PRN Restless Leg(S) 10/12/24 10/12/24 quetiapine 200 mg tablet 200 mg PO BEDTIME 10/12/24 0 10/12/24 quetiapine 25 mg tablet 25 mg PO TID PRN Agitation 0 10/12/24 10/12/24 methadone 10 mg/mL oral 170 mg PO DAILY 10/13/2411/30 concentrate (Methadone Intensol) Previous Rx's ?Medication ?Instructions ?Recorded lactulose 10 gram/15 mL oral 20 g (30 mL) PO BID #3,00 0 mL 10/13/24 solution clonazepam 0.5 mg tablet (Klonopin) 0.5 mg PO BID #6 t abs 12/31/24 Allergies Allergy/AdvReac Type Severity Reaction Status Date / Time aspirin (ASA) Allergy Intermediate Hives Verified 01/01/25 12:20 Penicillins Allergy Dizziness Verified 01/01/25 12:20 Review of Systems Review of Systems: Constitutional : No Weight loss, No Fever, No Chills, No Night Sweats, No Fatigue, No Malaise ENT/Mouth : No Hearing loss, No Ear Pain, No Nasal Congestion, No Sinus Pain, No Hoarseness, No sore throat, No Rhinorrhea, No Swallowing Difficulty Eyes: No Eye Pain, No Swelling, No Redness, No Foreign Body, No Discharge, No Vision Changes Cardiovascular : No Chest Pain, No SOB, No Dyspnea on Exertion, No Orthopnea, No Edema, No Palpitations Respiratory : No Cough, No Sputum, No Wheezing, No Smoke Exposure, No Dyspnea Gastrointestinal : No Nausea, No Vomiting, No Diarrhea, No Constipation, No abdominal Pain, No Hematochezia, No Melena Genitourinary : no irregular bleeding, No Dysuria, No Urinary Frequency, No Hematuria, No Urinary Incontinence, No Urgency, No Flank Pain, No Urinary Flow Changes, No Hesitancy Musculoskeletal : No joint pain, No Myalgias, No Joint Swelling Skin : No Skin Lesions, No rash Neuro : No Weakness, No Numbness, No Paresthesias, No Loss of Consciousness, No Dizziness, No Headache Psych : No Anxiety/Panic, No Depression, No SI/HI/AH/VH, No Social Issues, Heme/Lymph: No Bruising, No Bleeding,No Lymphadenopathy Endocrine : No Polyuria, No Polydipsia, No Temperature Intolerance [facility] Past Medical History Medical History Obesity hypoventilation syndrome THOMAS (obstructive sleep apnea) Asthma CVA (cerebral vascular accident) GERD (gastroesophageal reflux disease) Social History Social History Household Members: None Housing: Homeless Do you presently have visiting nurse or other home services: No Alcohol intake: former Comment: 1:1 sitter bedside for SI Patient Tobacco Use Status: Current everyday Tobacco user Tobacco use type: Cigarette Cigarettes Per Day: 3 Years Smoked: 32 Second Hand Smoke Exposure: Yes Substance Use Type: Opiates Advance Directives: No Advance Directives Information Provided: No service: No Physical Exam ED Exam Exam: Appearance: Alert. Oriented X3. No acute distress. Somnolent but easily arousable Eyes: Pupils equal, round and reactive to light. ENT: Pharynx normal. Neck: Normal inspection. Neck supple. No lymph nodes noted. No crepitus CVS: Normal heart rate and rhythm. Pulses normal. Normal S1 and S2 Respiratory: No respiratory distress. Breath sounds normal. No Wheezing. No rales Abdomen: Soft and nontender. No rigidity. No distention. Skin: Skin warm and dry. Normal skin color. Normal skin turgor. Extremities: No lower extremity edema. No Lacerations. No Rash Neuro: Oriented X 3. No motor deficit. No sensory deficit. Moving all extremities. No slurred speech. CN 2 through 12 grossly intact Psych: calm, cooperative, normal affect Vital Signs: Vital Signs - 24 hr 01/01/25 16:20 01/01/25 17:05 Temperature 98.4 F Pulse Rate 90 90 Respiratory Rate 18 18 Blood Pressure 128/90 H 128/90 H Pulse Oximetry 98 98 Oxygen Delivery Method Room Air Room Air BMI result Body Mass Index 51.4 Course Course Course Narrative: RME: 44-year-old female history of high blood pressure arise some it [facility] program for incidental elevated blood pressure. Patient has 2 readings of diastolic over 120 and systolic over 160. Patient denies any chest pain shortness of breath headache dizziness nausea or vomiting. Patient does appears sleepy in triage. [facility] and was written for Klonopin to be cut in half. Labs EKG ordered. Medical Decision Making Medical Decision Making [facility] Narrative: My interpretation of labs: Patient's white blood cell count 11.7, chemistry within normal limits, AST and ALT slightly bumped, alk phos normal. Patient's blood pressure 128/90. Heart rate 90 I discussed with the patient and the intermediate staff that the patient's seems significantly somnolent. Patient is on 400 mg of Seroquel which may be the culprit. However, patient has history of elevated ammonia. Patient declined to be stuck again with a needle. Patient refused any further blood work. halfway staff was made aware that if patient continues being somnolent or has a altered mental status, the patient needs to return to the emergency room. Critical Care Time Critical Care Time Critical Care Time: Yes Total Critical Care Time: 35 Attestation: I have personally provided critical care time. Time includes review of lab data, radiology results, discussion with consultants, and monitoring for potential decompensation. Intervention performed as documented. Discharge Plan Discharge Clinical Impression: High blood pressure Patient Disposition: Home, Self-Care Instructions: Hypertension (ED) Additional Instructions: This keep a log of your blood pressures to share with your primary care physician. At this time, we will not start you on blood pressure medications. I would recommend that you check your blood pressure in different settings including a pharmacy or a [facility] and your resident, and a your primary care physician's office. You are very somnolent today. It can be because your dose of Seroquel is high. However, previously your ammonia levels have been elevated which may cause the same somnolence. Patient declined any further blood work. For the intermediate staff, if patient seems altered , more somnolent than usual, any new symptoms, please return to the emergency room. Please follow-up with your primary care physician tomorrow. If you have any worsening or new symptoms, please return to the emergency room or call 911 Prescriptions: No Action quetiapine 25 mg tablet 25 mg PO TID PRN (Reason: Agitation) quetiapine 200 mg tablet 200 mg PO BEDTIME pramipexole 0.5 mg tablet 0.5 mg PO DAILY PRN (Reason: Restless Leg(S)) furosemide 20 mg tablet 20 mg PO DAILY diclofenac sodium 50 mg tablet,delayed release (DR/EC) 50 mg PO TID PRN (Reason: Pain) albuterol sulfate [Ventolin HFA] 90 mcg/actuation HFA aerosol inhaler 2 puff INHALATION QID PRN (Reason: Shortness Of Breath Or Wheezing) diclofenac sodium 1 % Gel 2 g TOPICAL QID PRN (Reason: Pain) Rx Instructions: apply to single elbow, wrist or hand; for hand includes palm/fingers/back of hand Caplyta 42 mg capsule 42 mg PO BEDTIME methadone [Methadone Intensol] 10 mg/mL Concentrate 170 mg PO DAILY lactulose 10 gram/15 mL Solution 20 g PO BID Qty: 3000 0RF atorvastatin 40 mg tablet 40 mg PO DAILY gabapentin 800 mg tablet 800 mg PO TID pantoprazole 40 mg tablet,delayed release (DR/EC) 40 mg PO DAILY@0630 prazosin 2 mg capsule 2 mg PO BEDTIME escitalopram oxalate 20 mg tablet 20 mg PO DAILY clonazepam [Klonopin] 0.5 mg tablet 0.5 mg PO BID Qty: 6 0RF Interventions: ED Discharge Assessment Last Done: 01/01/25 17:05 Discharge Date/Time: 01/01/25 17:07 Print Language: Austrian
--- NOTE | 2025-01-01 12:27 | ECG_ITS ---
Test Reason : HTN Blood Pressure : */* mmHG Vent. Rate : 98 BPM Atrial Rate : 98 BPM P-R Int : 142 ms QRS Dur : 82 ms QT Int : 350 ms P-R-T Axes : 64 66 65 degrees QTcB Int : 447 ms Normal sinus rhythm Possible Left atrial enlargement Nonspecific ST and T wave abnormality Abnormal ECG When compared with ECG of 31-Dec-2024 20:18, No significant changes seen Referred By: Michael Agarwal Electronically Signed By: LISSY DAVIDSON
[2025-01-01 16:20] VITALS: BP 128/90; PULSE 90; RESP 18; O2SAT 98
--- NOTE | 2025-01-01 16:30 | PC.NURSE ---
Initial contact w/ pt, pt from [facility] per staff at bedside, pt noted to have hypertention at facility. See flowsheet for vitals wnl. Also pt noted to be sleepy but arousable to verbal stimuli. Pt states she sleepy because she hasnt slept much the past two days. 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 Pt refused this RN and tech to obtain labs.
--- OUTSIDE RECORDS SUMMARY | 2025-01-01 16:46 | XMS_ITS | Patient Health Record ---
Author Organization [facility] Address [address], [place] [id number] Care Team Providers Care Virology Teacher Name Role Phone Nancy Renner Primary Care Provider [phone] Addis Nash Unavailable Allergies Allergen (clinical drug ingredient) Drug/Non Drug [...] W/U Status Risk Notes Problem Polysubstance dependence (08644097) Polysubstance dependence (304.90) Active confirmed Problem Otitis media with effusion (75494100) Otitis media with effusion (381.4) Active confirmed Problem Constipation (23290679) Constipation not elsewhere classified (564.09) Active confirmed Problem Irritable bowel syndrome (21950425) IBS [Irritable bowel syndrome] (564.1) Active confirmed Problem Back pain (839874665) Back pain (724.5) Active confirmed Problem Tobacco use (456517481) Tobacco use disorder (305.1) Active confirmed Problem Problem behavior (142974799) MENTAL/BEHAVIOR PROB NOS (V40.9) Active confirmed Problem Gastroesophageal reflux disease (341685559) GERD (530.81) Active confirmed Encounters Encounter Location Date Provider Diagnosis [facility] [address] [place] [phone] 11/21/2024 Addis Nash Plan Of Treatment Pending [...] Insured Coverage Start Date Coverage End Date [place] Medicaid Standard [address] [place] [address] [id number] Alicia Ambriz Self - patient is the [...]
--- OUTSIDE RECORDS SUMMARY | 2025-01-01 16:46 | XMS_ITS | Clinical Summary ---
Author Organization [facility] Address [address] [place] [address] Care Team Providers Care Dry Plasterer Helper Name Role Phone PasserDary Primary Care Provider [phone] Allergies Active Allergy Reactions Criticality Noted Date [...] last used crack 5/1. - [facility] Assessment & Plan (09/17/2024 9:41 AM EDT): - last used crack 5/1. - [facility] - patient can return to [facility] facility. History of DVT (deep vein thrombosis) [...] patient's age to complete this topic Insurance [facility] MEDICAID Care Teams Dry Plasterer Helper Relationship Specialty Start Date End Date Dary Maradiaga [address] [place] [phone] PCP - General 09/10/24
--- OUTSIDE RECORDS SUMMARY | 2025-01-01 16:46 | XMS_ITS | Clinical Summary ---
Author Organization [facility] Address [address] [place] [address] Care Team Providers Care Supervisor Home Energy Consultant Name Role Phone Unavailable Primary Care Provider [...] mg by mouth Once per day. At [facility] in [place] Active famotidine (Pepcid) 20 MG tablet Take [...] been using heroin and crack. Went to [facility]. No procedures. Taking atorvastatin and clopidogrel. No residual deficits. GERD (gastroesophageal reflux disease) Chronic pain of right knee 10/05/2023 Overview (10/05/2023): History of needing steroid injections Chronic left shoulder pain 10/05/2023 Chronic midline low back pain without sciatica 0 10/05/2023 Overview (10/05/2023): History of surgery History of substance abuse 10/05/2023 Overview (10/05/2023): Had used heroin, crack. Living in [facility] now (10/05/23). Mild intermittent asthma without complication [...] patient's age to complete this topic [place] [address] C3 [facility] STANDARD
[2025-01-01 17:05] VITALS: BP 128/90; PULSE 90; RESP 18; TEMP 36.9; O2SAT 98
== END 2025-01-01 17:07 | disposition home or self-care (01) ==
PROVIDERS: Emergency Provider Emergency Medicine
DX: R94.31 Abnormal electrocardiogram [ECG] [EKG] (principal); R79.89 Other specified abnormal findings of blood chemistry; I10 Essential (primary) hypertension; Z79.899 Other long term (current) drug therapy
CPT/HCPCS: 93005; 99283

== ENCOUNTER → 2025-01-01 12:27 | Outpatient (BNV) | payer OTHER, SELFPAY | PROVIDERS: Emergency Provider Emergency Medicine; Visit Provider Internal Medicine | DX: R94.31 Abnormal electrocardiogram [ECG] [EKG] (principal); I10 Essential (primary) hypertension | CPT/HCPCS: 93010 ==

== ENCOUNTER 2025-01-02 14:41 | Outpatient (AMB) | payer OTHER, SELFPAY ==
--- OUTSIDE RECORDS SUMMARY | 2024-12-27 06:00 | XMS_ITS ---
Author Organization [facility] Address [address] [place], [place] [id number] Care Team Providers Care Conveyor Maintenance Mechanic Name Role Phone Nancy Renner Primary Care Provider [phone] Addis Nash Unavailable [phone] Encounters Encounter Location Date Provider Diagnosis [facility] [address] [place] [phone] 12/27/2024 Addis Nash Plan Of Treatment No Information Progress Notes * Zee GALVEZOB: 0 (44 yo F)Acc No.[id number]:12/27/2024 Case Management Patient: Eric HOANG Alicia Provider: Arielle Nash :1980 A ge:44 Y S ex:Female Date:12/27/2024 Address:[address] [place], [place] [phone] Pcp:Nancy GOODE Subjective: * Chief Complaints: * * Medical History: Objective: Assessment: Plan: * Treatment: * Images: Billing Information: * Visit Code: * Procedure Codes: Care Plan Details* * Electronic signature of Maurice Nash on 01/02/2025 at 04:01 PM EDT Sign off status: Pending * Provider: Arielle Nash Date: 12/27/2024 Generated for Diana wheeler/Kathy/Cristina on: 01/02/2025 04:01 PM EDT
--- NOTE | 2025-01-02 14:42 | A.OFFVIS_ITS ---
Vital Signs 01/02/25 14:43 Height 5 ft 1 in Weight 255 lb 4 oz BMI 48.2 BP 146/78 H Blood Pressure Location Rt brachial Pulse 90 Pulse Source Pulse Oximeter Pulse Oximetry (%) 97 Oxygen Delivery Method Room Air Intake Visit Reasons: Obstructive sleep apnea Allergies aspirin (ASA) Allergy (Intermediate, Verified 01/02/25 14:47) Hives Penicillins Allergy (Verified 01/02/25 14:47) Dizziness HPI HPI Obstructive sleep apnea: Details: Alicia is a pleasant 44 year old female, current 15 pack year smoker, with underlying asthma, obesity severe THOMAS, h/o opiate use disoder on methadone, ETOH use disorder, mood disorder on depakote, and hep C. Currently residing at a skilled nursing. She was referred by [facility] for management of THOMAS and asthma. The patient has a history of obstructive sleep apnea, with a previous sleep study indicating severe apnea with 70 episodes per hour. She experiences significant daytime tiredness and morning headaches, and has not yet started on a CPAP machine. The patient reports snoring and has been advised to undergo an in lab titration sleep study to determine the appropriate CPAP settings. The patient has a history of hypertension, which has recently become problematic, potentially due to uncontrolled sleep apnea. Blood pressure monitoring is conducted at her current residence, but specific values were not provided. The patient has a long-standing history of asthma since childhood, characterized by dry coughing and occasional shortness of breath. She uses albuterol frequently, unaware it was a rescue inhaler, and has agreed to try a daily inhaler in mist form to avoid powder. The patient has a history of tobacco use, having started smoking at age 10, and currently smokes three cigarettes per day. She has reduced her smoking from half a pack per day and acknowledges the need to quit. During visit patient lethargic, easily arousable however was seen in the ED for HTN yesterday with recommendations for further evaluation including ammonia levels as she as prior history of elevated levels however left AMA. There was also a question of over sedation due to medication regimen of Seroquel and Benzos, which reportedly are going to be tapered. Encouraged patient to return to ED for further evaluation however refused. [facility] Medical History (Updated 01/03/25 @ 11:28 by Kristie Shea NP) Asthma Obesity hypoventilation syndrome THOMAS (obstructive sleep apnea) CVA (cerebral vascular accident) GERD (gastroesophageal reflux disease) Social History (Updated 01/02/25 @ 14:47 by Megan Bernal CMA) Household Members: None Housing: Homeless Do you presently have visiting nurse or other home services: No Alcohol intake: former Comment: 1:1 sitter bedside for SI Patient Tobacco Use Status: Current everyday Tobacco user Tobacco use type: Cigarette Cigarettes Per Day: 3 Years Smoked: 32 e-Cigarette/Vaping Use: Currently Using Second Hand Smoke Exposure: Yes Substance Use Type: Opiates service: No Review of Systems Const Denies chills, Denies excessive sweating, Denies fever(s), Denies headache(s) and Denies night sweats Eyes Denies dry eyes, Denies irritation and Denies itchy eyes ENT Reports Normal hearing present, Denies headache(s), Denies nasal congestion, Denies nasal discharge, Denies post nasal drip and Denies sore throat Card Denies chest pain, Denies chest pain at rest, Denies chest pain with activity, Denies claudication, Denies leg edema, Denies orthopnea and Denies paroxysmal nocturnal dyspnea Resp Denies chest congestion, Denies excessive phlegm production, Denies pain on inspiration, Denies pain with cough and Denies stridor Musc Denies myalgias Neuro Reports Normal hearing present and Denies headache(s) Endo Denies excessive sweating Archie/Lymph Denies lymphadenopathy Aller/Immun Denies itchy eyes and Denies seasonal rhinorrhea Physical Exam Vital Signs: Last Vital Signs Pulse 90 01/02/25 14:43 BP 146/78 H 01/02/25 14:43 Pulse Ox 97 01/02/25 14:43 Oxygen Delivery Method Room Air 01/02/25 14:43 BMI result Body Mass Index 48.2 Const General: cooperative, comfortable, lethargic, poor hygiene and tired appearing Nutritional Appearance: obese Orientation/consciousness: patient oriented x3 and lethargic HEENT Head: Yes normal to inspection, Yes normocephalic and Yes atraumatic Ears: hearing grossly normal bilaterally and external ears normal Eyes General: appearance normal, both eyes and all related structures Eyelids: Yes eyelids normal Sclerae: sclerae normal EOM: EOMs intact bilaterally Neck Neck: Yes normal visual inspection and Yes no lymphadenopathy Lymphatic: no lymphadenopathy noted Chest Chest palpation & inspection: normal inspection of the chest Resp Effort & Inspection: normal respiratory effort, able to speak in complete sentences, no audible wheezes, no cough, no stridor, not tachypneic, no tripod positioning and no use of accessory muscles Cardio Jugular venous distension: no JVD Rate: regular rate Rhythm: regular rhythm Skin Other: warm, dry General skin exam: no rashes or lesions noted Neuro General: patient oriented x3 Cranial nerves: Yes Normal hearing present Gait exam (Neuro): Normal gait present Extrem General: Yes normal to inspection, Yes capillary refill normal, Yes no clubbing, cyanosis or edema and Yes no pedal edema Psych Speech and movement: Slurred speech present Affect: normal affect Attitude: cooperative Thought process: Normal thought process present Thought content: Normal thought content present Insight: Limited insight present (Psych) Judgement: Limited judgement present (Psych) Results Reviewed Results Reviewed: [address] [address] [address] Scan Report Signed Patient: Alicia Ambriz MR#: [id number] : 1980 Acct:[id number] Age/Sex: 43 / F ADM Date: 05/26/24 Loc: .S3 369-[address]: Allison Carbajal NP Ordering Physician: Allison Carbajal NP Date of Service: 05/26/24 Procedure(s): CT chest wo IV con Accession Number(s): [id number] cc: Physician,Unknown ; Allison Carbajal NP~ Report Number: [id number]: Total DLP = 390.00 mGy-cm CLINICAL HISTORY: re-eval from cxr; bronchiolitis CT CHEST WITHOUT CONTRAST Comparison: CR/SR - XR CHEST 1V - 11/29/23 15:58 EDT Findings: The heart size is normal. The thoracic aorta is normal caliber. Several nonenlarged and likely reactive mediastinal lymph nodes. Numerous small nodular airspace opacities are seen throughout the right lung ranging in size from 4-13 mm. There are several similar findings in the left lower lobe. There is mild bronchial wall thickening. Trachea and major bronchi are patent. No pleural effusion or pneumothorax. Tiny calcified granuloma in the left upper lobe. The visualized upper abdomen is unremarkable. The bones are intact. IMPRESSION: 1. Multiple small nodular airspace opacities throughout the right lung and in the left lower lobe suggestive of inflammatory or infectious process. 2. Mild central bronchial wall thickening. 3. No segmental or lobar pneumonia. This document has been electronically signed by: Zeynep Hastings DO on 05/26/2024 13:38:14 Assessment & Plan Assessment & Plan (1) Severe obstructive sleep apnea: Code(s): G47.33 - Obstructive sleep apnea (adult) (pediatric) Category: Medical (2) Nocturnal hypoxemia: Code(s): G47.34 - Idiopathic sleep related nonobstructive alveolar hypoventilation Category: Medical (3) Daytime somnolence: Code(s): R40.0 - Somnolence Category: Medical (4) Asthma: Code(s): J45.909 - Unspecified asthma, uncomplicated Category: Medical (5) Nicotine dependence, cigarettes, uncomplicated: Code(s): F17.210 - Nicotine dependence, cigarettes, uncomplicated Category: Medical (6) Multiple pulmonary nodules: Code(s): R91.8 - Other nonspecific abnormal finding of lung field Category: Medical Plan Discussed with the patient the need for a lab-based sleep study to determine the appropriate CPAP settings for her obstructive sleep apnea. Likely patient has OHS given severity of THOMAS, nocturnal hypoxemia and obesity. There was a question of pulmonary hypertension however recent echo RSVP WNL. We also talked about the potential link between her hypertension and untreated sleep apnea, and the importance of managing both conditions. She reports suboptimal control of asthma and patient agreed to try a daily inhaler in mist form for her asthma and to continue using albuterol as needed. Will send for PFT. We reviewed her smoking history and the importance of cessation, she is working towards quitting. Patient lethargic during visit, easily arousable and answering questions appropriately however discussed need for further evaluation in the ED which she refused. If patient less somnolent at next visit will attempt 6MWT. CT chest 05/2024 revealed multiple small nodular airspace opacities throughout the right lung and in the left lower lobe suggestive of inflammatory or infectious process. Will repeat to assess for resolution. All questions were answered and patient is in agreement of plan, Will follow up to review results or sooner if needed. Orders: Orders RT PSG in-lab sleep titration Today G47.33 - Obstructive sleep apnea (adult) (pediatric), G47.34 - Idiopathic sleep related nonobstructive alveolar hypoventilation, R40.0 - Somnolence PFT pulmonary function test Today J45.909 - Unspecified asthma, uncomplicated CT chest wo IV con Today R91.8 - Other nonspecific abnormal finding of lung field Medications: New fluticasone propion-salmeterol 115-21 mcg/actuation (Advair HFA) 2 puffs inhalation Q12H 12 grams 3RF Coding Level of Care Code New Pt Level 4 (10505) Complex EM visit Add On G2211 Diagnoses Severe obstructive sleep apnea G47.33 Nocturnal hypoxemia G47.34 Daytime somnolence R40.0 Asthma J45.909 Nicotine dependence, cigarettes, uncomplicated F17.210 Multiple pulmonary nodules R91.8
[2025-01-02 14:43] VITALS: BP 146/78; PULSE 90; O2SAT 97; BMI 48.2
--- OUTSIDE RECORDS SUMMARY | 2025-01-02 16:01 | XMS_ITS | Patient Health Record ---
Author Organization [facility] Address [address], [place] [id number] Care Team Providers Care Barbering Instructor Name Role Phone Nancy Renner Primary Care Provider Addis Nash Unavailable Allergies Allergen (clinical drug [...] W/U Status Risk Notes Problem Polysubstance dependence (93496431) Polysubstance dependence (304.90) Active confirmed Problem Otitis media with effusion (09450050) Otitis media with effusion (381.4) Active confirmed Problem Constipation (69217874) Constipation not elsewhere classified (564.09) Active confirmed Problem Irritable bowel syndrome (70685876) IBS [Irritable bowel syndrome] (564.1) Active confirmed Problem Back pain (755809448) Back pain (724.5) Active confirmed Problem Tobacco use (062432922) Tobacco use disorder (305.1) Active confirmed Problem Problem behavior (046430536) MENTAL/BEHAVIOR PROB NOS (V40.9) Active confirmed Problem Gastroesophageal reflux disease (348737660) GERD (530.81) Active confirmed Encounters Encounter Location Date Provider Diagnosis [facility] [address] [place] [phone] 11/21/2024 Addis Nash Plan Of Treatment Pending [...] Insured Coverage Start Date Coverage End Date [place] Medicaid Standard [address] [place] [address] [phone] [id number] Alicia Ambriz Self - patient is the [...]
--- OUTSIDE RECORDS SUMMARY | 2025-01-02 16:01 | XMS_ITS | Clinical Summary ---
Author Organization [facility] Address [address] [place] [address] Care Team Providers Care First Mate Name Role Phone Unavailable Primary Care Provider [...] mg by mouth Once per day. At [facility] in [place] Active famotidine (Pepcid) 20 MG tablet Take [...] been using heroin and crack. Went to [facility]. No procedures. Taking atorvastatin and clopidogrel. No residual deficits. GERD (gastroesophageal reflux disease) Chronic pain of right knee 10/05/2023 Overview (10/05/2023): History of needing steroid injections Chronic left shoulder pain 10/05/2023 Chronic midline low back pain without sciatica 0 10/05/2023 Overview (10/05/2023): History of surgery History of substance abuse 10/05/2023 Overview (10/05/2023): Had used heroin, crack. Living in [facility] now (10/05/23). Mild intermittent asthma without complication [...] patient's age to complete this topic [place] [address] [place] [address] C3 [facility] STANDARD
--- OUTSIDE RECORDS SUMMARY | 2025-01-02 16:01 | XMS_ITS | Clinical Summary ---
Author Organization [facility] Address [address] [place] [address] Care Team Providers Care Frame Opener Name Role Phone PasserDary Primary Care Provider [phone] Allergies Active Allergy Reactions Criticality Noted Date [...] last used crack 5/1. - [facility] Assessment & Plan (09/17/2024 9:41 AM EDT): - last used crack 5/1. - [facility] - patient can return to [facility] facility. History of DVT (deep vein thrombosis) [...] patient's age to complete this topic Insurance [facility] MEDICAID Care Teams Frame Opener Relationship Specialty Start Date End Date Dary Maradiaga [address] [place] [id number] PCP - General 09/10/24
== END 2025-01-02 15:29 | disposition home or self-care (01) ==
LOC: HO.HPSW 14:41
PROVIDERS: PCP Physician Assistant Medical; Visit Provider Nurse Practitioner Family
DX: G47.33 Obstructive sleep apnea (adult) (pediatric) (principal); G47.34 Idiopathic sleep related nonobstructive alveolar hypoventilation; R40.0 Somnolence; J45.909 Unspecified asthma, uncomplicated; F17.210 Nicotine dependence, cigarettes, uncomplicated; R91.8 Other nonspecific abnormal finding of lung field
CPT/HCPCS: 99204; G2211

== ENCOUNTER → 2025-01-02 14:41 | Outpatient (BNVA) | payer OTHER, SELFPAY | PROVIDERS: PCP Physician Assistant Medical; Visit Provider Nurse Practitioner Family | DX: G47.33 Obstructive sleep apnea (adult) (pediatric) (principal); G47.34 Idiopathic sleep related nonobstructive alveolar hypoventilation; R40.0 Somnolence; J45.909 Unspecified asthma, uncomplicated; F17.210 Nicotine dependence, cigarettes, uncomplicated; R91.8 Other nonspecific abnormal finding of lung field | CPT/HCPCS: 99202 ==

== ENCOUNTER 2025-01-18 12:47 | Emergency (ER) | payer OTHER, SELFPAY ==
--- OUTSIDE RECORDS SUMMARY | 2024-12-27 06:00 | XMS_ITS ---
Author Organization [facility] Address [address] [place] [phone] Care Team Providers Care Slab Grinder Name Role Phone Nancy Renner Primary Care Provider Addis Nash Unavailable Encounters Encounter Location Date Provider Diagnosis [facility] [address] [place] [phone] 12/27/2024 Addis Nash Plan Of Treatment No Information Progress Notes * Zee GALVEZOB: 0 (44 yo F)Acc No.[id number]:12/27/2024 Case Management Patient: Eric HOANG Alicia Provider: Arielle Nash :1980 A ge:44 Y S ex:Female Date:12/27/2024 Address:[address] [place], [place] [phone] Pcp:Nancy GOODE Subjective: * Chief Complaints: * * Medical History: Objective: Assessment: Plan: * Treatment: * Images: Billing Information: * Visit Code: * Procedure Codes: Care Plan Details* * Electronic signature of Maurice Nash on 01/18/2025 at 03:38 PM EDT Sign off status: Pending * Provider: Arielle Nash Date: 12/27/2024 Generated for Diana wheeler/Kathy/eTbaldomeroitting on: 01/18/2025 03:38 PM EDT
[2025-01-18 12:59] VITALS: BP 144/103; PULSE 85; RESP 16; TEMP 36.7; O2SAT 95; BMI 48.5
--- NOTE | 2025-01-18 12:59 | ED.GENADULT ---
HPI - General Adult General Chief complaint: Medical Clearance Stated complaint: medicine issues Time Seen by Provider: 01/18/25 13:03 Source: patient Mode of arrival: ambulatory Limitations: no limitations History of Present Illness ED Provider: Anne Arellano PA-C HPI narrative: Patient is a 44 year old assigned female at with a history of opiate use disorder, ETOH use disorder, mood disorder on depakote, hep C, THOMAS, currently residing in the [facility] program for substance use, presenting to the emergency department today with requesting a refill of her 400mg Seroquel. Patient states that she is supposed to see her provider on 01/23/2025 but is now out of her Seroquel 400mg nightly for sleep aid. Patient states that she has been taken off of her benzos. Patient denies any complaints at this time and states she'd like a bridge script until she sees her provider on 01/23/2025. Related Data Home Medications ?Medication ?Instructions ?Recorded ?Confirmed atorvastatin 40 mg tablet 40 mg PO DAILY 05/26/24 10/12/24 gabapentin 800 mg tablet 800 mg PO TID 05/26/24 10/12/24 pantoprazole 40 mg tablet,delayed 40 mg PO DAILY@0630 05/26/24 10/12/24 release albuterol sulfate 90 mcg/actuation 2 puff inhalation QID PRN 10/12/24 10/12/24 aerosol inhaler (Ventolin HFA) Shortness Of Breath Or Wheezing diclofenac sodium 1 % topical gel 2 g topical QID PRN Pain 10/12/24 10/12/24 diclofenac sodium 50 mg 50 mg PO TID PRN Pain 10/12/24 10/12/24 tablet,delayed release furosemide 20 mg tablet 20 mg PO DAILY swelling 10/12/24 10/12/24 pramipexole 0.5 mg tablet 0.5 mg PO DAILY PRN Restless Leg(S) 10/12/24 10/12/24 quetiapine 200 mg tablet 200 mg PO BEDTIME 10/12/24 10/12/24 quetiapine 25 mg tablet 25 mg PO TID PRN Agitation 10/12/24 10/12/24 methadone 10 mg/mL oral 170 mg PO DAILY 10/13/24 10/13/24 concentrate (Methadone Intensol) Previous Rx's ?Medication ?Instructions ?Recorded lactulose 10 gram/15 mL oral 20 g (30 mL) PO BID #3,000 mL 10/13/24 solution clonazepam 0.5 mg tablet (Klonopin) 0.5 mg PO BID #6 tabs 12/31/24 fluticasone propionate 115 2 puff inhalation Q12H #12 grams 01/02/25 mcg-salmeterol 21 mcg/actuation HFA inhaler (Advair HFA) quetiapine 400 mg tablet (Seroquel) 400 mg PO BID 5 days #10 tabs 01/18/25 Allergies Allergy/AdvReac Type Severity Reaction Status Date / Time aspirin (ASA) Allergy Intermediate Hives Verified 01/18/25 13:01 Penicillins Allergy Dizziness Verified 01/18/25 13:01 Review of Systems Constitutional: Constitutional: Reports as per HPI Eyes: Eyes: Reports as per HPI ENT: Reports as per HPI Cardiovascular: Cardiovascular: Reports as per HPI Respiratory: Respiratory: Reports as per HPI Gastrointestinal: Gastrointestinal: Reports as per HPI Genitourinary: Genitourinary: Reports as per HPI Musculoskeletal: Musculoskeletal: Reports as per HPI Integumentary/Breasts: Skin/Breast: Reports as per HPI Neurologic: Reports as per HPI Psychiatric: Psychiatric: Reports as per HPI Endocrine: Endocrine: Reports as per HPI Hematologic/Lymphatic: Hematologic/Lymphatic: Reports as per HPI Allergic/Immunologic: Allergic/Immunologic: Reports as per HPI PMF Past Medical History Attestation statement: The following information was validated with the patient. Source: old records reviewed and nursing notes reviewed Medical History Asthma Obesity hypoventilation syndrome THOMAS (obstructive sleep apnea) CVA (cerebral vascular accident) GERD (gastroesophageal reflux disease) Social History Social History Household Members: None Housing: Homeless Do you presently have visiting nurse or other home services: No Alcohol intake: former Comment: 1:1 sitter bedside for SI Patient Tobacco Use Status: Current everyday Tobacco user Tobacco use type: Cigarette Cigarettes Per Day: 3 Years Smoked: 32 e-Cigarette/Vaping Use: Currently Using Second Hand Smoke Exposure: Yes Substance Use Type: Opiates Advance Directives: No Advance Directives Information Provided: Yes Do you have a plan to hurt others: No Plan service: No Physical Exam ED Vital Signs: Vital Signs - 24 hr 01/18/25 12:59 Temperature 98.0 F Pulse Rate 85 Respiratory Rate 16 Blood Pressure 144/103 H Pulse Oximetry 95 Oxygen Delivery Method Room Air BMI result Body Mass Index 48.5 Const General: cooperative, no acute distress, alert and awake Nutritional Appearance: well nourished Orientation/consciousness: patient oriented x3 HENMT Head: Yes normal to inspection and Yes atraumatic Ears: hearing grossly normal bilaterally and external ears normal General nose exam: Normal external nose present, no nasal discharge noted and no epistaxis Face and sinus: Yes normal facial exam, No abrasion and No laceration Mouth: Normal oral and palatal mucosa present, no drooling and no muffled voice Eyes General: appearance normal, both eyes and all related structures Periorbital: periorbital findings normal Eyelids: Yes eyelids normal Conjunctivae: conjunctivae normal Pupils: Equal, round and reactive pupils present EOM: EOMs intact bilaterally Neck Neck: Yes normal visual inspection and Yes full ROM Resp Effort & Inspection: normal respiratory effort and able to speak in complete sentences Neuro General: patient oriented x3, moves all extremities and CN's II-XI intact bilaterally Cranial nerves: Yes Equal, round and reactive pupils present Cognition (Neuro): normal cognition Extrem General: Yes normal to inspection, Yes full ROM and Yes capillary refill normal Psych Appearance: grossly normal Mental Status: mental status grossly normal Affect: normal affect Attitude: cooperative Thought process: Normal thought process present Thought content: Normal thought content present Insight: Good insight present (Psych) Medical Decision Making Medical Decision Making MDM Narrative: Patient is a 44 year old assigned female at with a history of opiate use disorder, ETOH use disorder, mood disorder on depakote, hep C, THOMAS, currently residing in the [facility] program for substance use, presenting to the emergency department today with requesting a refill of her 400mg Seroquel. Patient's physical exam was unremarkable. I explained my physical exam findings to the patient. I answered all questions asked by the patient. I stressed the importance of the patient taking her medication as directed (either prescribed or as the over the counter packaging recommends). I stressed the importance of the patient following up with her primary care provider. I stressed the importance of the patient returning to the emergency department immediately if her symptoms were to worsen or if she were to develop any dizziness, shortness of breath, difficulty breathing, chest pain, blurry vision, loss of vision, nausea, vomiting, abdominal pain, fever, chills, back pain, or any other complaints. Patient verbalized agreement and understanding with this treatment plan and discharge. Differential Diagnosis Differential Diagnoses: The differential diagnosis associated with the presentation includes Medication refill Admission/Observation Consideration of admission/observation: Escalation of care including admission/observation considered Patient would have been admitted to the hospital had her clinical presentation warranted hospital admission. Discharge Plan Discharge Clinical Impression: Medicine refill Patient Disposition: Home, Self-Care Instructions: Medicine Refill (ED) Additional Instructions: IF you are prescribed home medications and/or you are taking over the counter medications at home - it is very important you continue to do so as prescribed / directed unless told otherwise. Follow up with your primary care provider. Return to the emergency department immediately if your symptoms worsen or if you develop any numbness, tingling, dizziness, shortness of breath, difficulty breathing, chest pain, blurry vision, loss of vision, nausea, vomiting, abdominal pain, fever, chills, back pain, or any other complaints. Please see the information below about our Patient Portal. If you are not yet enrolled in the [facility] Patient Portal, you will receive an enrollment email invitation following your visit to any [facility] care setting. You may also self-enroll in the Patient Portal by visiting our website: [email or web address][email or web address] The following information is required to access the Patient Portal: - Your [facility] Medical Record Number - Your personal home email address (must match what is in your electronic medical record, Registration staff can assist with this) - Name - Date of Capabilities of the Patient Portal: - Message some providers - View upcoming appointments - Access your health summary, medical history, and visit history - View current conditions and allergies - View procedure and lab results - View your medications, including guidelines, side effects, and precautions - Complete pre-appointment questionnaires requested by your provider - Ready summary reports of your office visits and procedures To access the Patient Portal Mobile Sandy, follow these directions: - Search [employer] in the Sandy Store or [employer] Store - Download the Sandy - Search for [facility] - Enter your login/password Prescriptions: New quetiapine [Seroquel] 400 mg tablet 400 mg PO BID 5 Days Qty: 10 0RF No Action quetiapine 25 mg tablet 25 mg PO TID PRN (Reason: Agitation) quetiapine 200 mg tablet 200 mg PO BEDTIME pramipexole 0.5 mg tablet 0.5 mg PO DAILY PRN (Reason: Restless Leg(S)) furosemide 20 mg tablet 20 mg PO DAILY diclofenac sodium 50 mg tablet,delayed release (DR/EC) 50 mg PO TID PRN (Reason: Pain) albuterol sulfate [Ventolin HFA] 90 mcg/actuation HFA aerosol inhaler 2 puff INHALATION QID PRN (Reason: Shortness Of Breath Or Wheezing) diclofenac sodium 1 % Gel 2 g TOPICAL QID PRN (Reason: Pain) Rx Instructions: apply to single elbow, wrist or hand; for hand includes palm/fingers/back of hand methadone [Methadone Intensol] 10 mg/mL Concentrate 170 mg PO DAILY lactulose 10 gram/15 mL Solution 20 g PO BID Qty: 3000 0RF atorvastatin 40 mg tablet 40 mg PO DAILY gabapentin 800 mg tablet 800 mg PO TID pantoprazole 40 mg tablet,delayed release (DR/EC) 40 mg PO DAILY@0630 clonazepam [Klonopin] 0.5 mg tablet 0.5 mg PO BID Qty: 6 0RF fluticasone propion-salmeterol [Advair HFA] 115-21 mcg/actuation HFA aerosol inhaler 2 puff inhalation Q12H Qty: 12 3RF Referrals: Jose Wilks MD [Primary Care Provider, Family Practice] Print Language: Moldovan
[2025-01-18 13:33] VITALS: BP 144/103; PULSE 85; RESP 16; TEMP 36.7; O2SAT 95
--- OUTSIDE RECORDS SUMMARY | 2025-01-18 15:39 | XMS_ITS | Clinical Summary ---
Author Organization [facility] Address [address] [place] [address] Care Team Providers Care Methods Specialist Name Role Phone PasserDary Primary Care Provider [phone] Allergies Active Allergy Reactions Criticality Noted Date [...] last used crack 5/1. - [facility] Assessment & Plan (09/17/2024 9:41 AM EDT): - last used crack 5/1. - [facility] - patient can return to [facility] facility. History of DVT (deep vein thrombosis) [...] Vaccines (1 - Tdap) 07/09/2001 Mammogram 2019 Alcohol/Substance Use Screening 05/09/2024 Depression Screening and Follow-Up 05/09/2024 Social Drivers of Health Davina ual Screening 05/09/2024 COVID-19 Vaccine ( - 2023-2 5 season) 2025 Influenza Vaccine (#1) 2025 RSV Vaccine (60+ years old a nd patients) (1 - 1-dose 75+ series) 07/09/2054 Pneumococcal Vaccine: Pediat yong (0-5 Years) and At-Risk Patients (6-50 Years) Aged Out No longer eligible b ased on patient's age to complete this topic Insurance [facility] MEDICAID Care Teams Methods Specialist Relationship Specialty Start Date End Date Dary Maradiaga [address] [place] [id number] PCP - General 09/10/24
--- OUTSIDE RECORDS SUMMARY | 2025-01-18 15:39 | XMS_ITS | Patient Health Record ---
Author Organization [facility] Address [address] [place] [address] Care Team Providers Care Granulator Machine Operator Name Role Phone Nancy Renner Primary Care Provider [phone] Addis Nash Unavailable [phone] Allergies Allergen (clinical drug ingredient) Drug/Non Drug [...] W/U Status Risk Notes Problem Polysubstance dependence (05520382) Polysubstance dependence (304.90) Active confirmed Problem Otitis media with effusion (44434422) Otitis media with effusion (381.4) Active confirmed Problem Constipation (56092126) Constipation not elsewhere classified (564.09) Active confirmed Problem Irritable bowel syndrome (80076807) IBS [Irritable bowel syndrome] (564.1) Active confirmed Problem Back pain (958423585) Back pain (724.5) Active confirmed Problem Tobacco use (828370307) Tobacco use disorder (305.1) Active confirmed Problem Problem behavior (439925000) MENTAL/BEHAVIOR PROB NOS (V40.9) Active confirmed Problem Gastroesophageal reflux disease (834058215) GERD (530.81) Active confirmed Encounters Encounter Location Date Provider Diagnosis [facility] [address] [place] [phone] 11/21/2024 Addis Nash Plan Of Treatment Pending [...] Insured Coverage Start Date Coverage End Date [place] Medicaid Standard [address] [place] [address] [id number] Alicia Ambriz Self - patient is the [...]
--- OUTSIDE RECORDS SUMMARY | 2025-01-18 15:39 | XMS_ITS | Clinical Summary ---
Author Organization [facility] [facility] Address [address] [place] [address] Care Team Providers Care Practice Office Associate Name Role Phone Unavailable Primary Care Provider [...] mg by mouth Once per day. At [facility] in [place] Active famotidine (Pepcid) 20 MG tablet Take [...] been using heroin and crack. Went to [facility]. No procedures. Taking atorvastatin and clopidogrel. No residual deficits. GERD (gastroesophageal reflux disease) Chronic pain of right knee 10/05/2023 Overview (10/05/2023): History of needing steroid injections Chronic left shoulder pain 10/05/2023 Chronic midline low back pain without sciatica 0 10/05/2023 Overview (10/05/2023): History of surgery History of substance abuse 10/05/2023 Overview (10/05/2023): Had used heroin, crack. Living in [facility] now (10/05/23). Mild intermittent asthma without complication [...] (1 - Tdap) 12/31/2015 12/30/2015 Mammogram 2019 Tobacco Screening 10/04/2024 10/05/2023 COVID-19 Vaccine (2 - 2024-2 6 season) 2025 03/09/2023 Influenza Vaccine (#1) 2025 3, 04/08/2022, 07/16/2017 Zoster Vaccines (1 of 2) [...] patient's age to complete this topic [place] [address] [address] C3 [facility] STANDARD
== END 2025-01-18 13:10 | disposition home or self-care (01) ==
PROVIDERS: Emergency Provider Emergency Medicine; PCP Family Medicine
DX: F15.90 Other stimulant use, unspecified, uncomplicated (principal); Z76.0 Encounter for issue of repeat prescription; G47.33 Obstructive sleep apnea (adult) (pediatric); Z59.00 Homelessness unspecified; Z79.899 Other long term (current) drug therapy; Z86.73 Personal history of transient ischemic attack (TIA), and cerebral infarction without residual deficits
CPT/HCPCS: 99282

== ENCOUNTER 2025-03-19 20:09 | Emergency (ER) | payer OTHER, SELFPAY ==
--- OUTSIDE RECORDS SUMMARY | 2024-12-27 05:00 | XMS_ITS ---
Author Organization [facility] Address [address] [place] [id number] Care Team Providers Care Senior Interaction Designer Name Role Phone Nancy Renner Primary Care Provider Addis Nash Unavailable Encounters Encounter Location Date Provider Diagnosis [facility] [address] [place] [phone] 12/27/2024 Addsi Nash Plan Of Treatment No Information Progress Notes * Zee GALVEZOB: 0 (44 yo F)Acc No.[id number]:12/27/2024 Case Management Patient: Eric HOANG Alicia Provider: Arielle Nash :1980 A ge:44 Y S ex:Female Date:12/27/2024 Address:[address] [place], [place] [id number] Pcp:Nancy GOODE Subjective: * Chief Complaints: * * Medical History: Objective: Assessment: Plan: * Treatment: * Images: Billing Information: * Visit Code: * Procedure Codes: Care Plan Details* * Electronic signature of Maurice Nash on 03/19/2025 at 10:27 PM EST Sign off status: Pending * Provider: Arielle Nash Date: 0 12/27/2024 Generated for Diana wheeler/Kathy/Cristina on: 05/19/2024 10:27 PM EST
--- OUTSIDE RECORDS SUMMARY | 2025-01-19 16:00 | XMS_ITS ---
Author Organization [facility] Address [address] [place] [address] Care Team Providers Care House Wrecker Name Role Phone Nancy Renner Primary Care Provider Addis Nash Unavailable Migration, Provider Unavailable Unavailable Allergies Allergen (clinical drug ingredient) Drug/Non Drug Allergy documented on EMR Reaction Allergy Type Onset Date Status aspirin Aspirin vomiting Drug Allergy Active [facility]AS[facility]ISIT [facility] Encounter Medications Medication SIG (Take, Route, Frequency, Duration) Notes Start Date End Date Status raNITidine 150 MG 1 CAP(S) ORALLY 2 TIMES A DAY PRN *Please review and pick correct strength-formulati on from [employer] options. If intended option is not shown, discontinue and re-order from Quick Search* 04/26/2013 05/09/2024 Active Flonase Allergy Relief 50 MCG/ACT 1 spray(s) intranasally once a day 05/30/2013 05/09/2024 Active Flexeril 10 MG 1 TAB(S) ORALLY 3 TIMES A DAY for 30 DAY(S) *Please review and pick correct strength-formulati on from [employer] options. If intended option is not shown, discontinue and re-order from Quick Search* 07/26/2013 Active Loratadine 10 MG 1 tab(s) orally once a day for 30 day(s) 07/26/2013 Active Naprosyn 500 MG 1 tab(s) orally 2 times a day prn with food for 30 day(s) 05/08/2013 Active busPIRone HCl 5 MG 1 tab(s) orally 3 times a day 05/30/2013 05/09/2024 Active Senna Lax 8.6 MG 2 TAB(S) ORALLY ONCE A DAY (AT BEDTIME) PRN *Please review and pick correct strength-formulati on from [employer] options. If intended option is not shown, discontinue and re-order from Quick Search* 05/09/2024 05/09/2024 Active Encounters Encounter Location Date Provider Diagnosis [address] [address] 01/19/2025 Provider Migration Plan Of Treatment No Information Progress Notes * Zee GALVEZOB: 0 (44 yo F)Acc No.[id number]:01/19/2025 Patient: Alicia MARTINES Provider: :1980 A ge:44 Y S ex:Female Date:01/19/2025 Address:[address] [place], [place] [id number] Pcp:Nancy GOODE Subjective: * Chief Complaints: * 1 . Multum To [facility] Conversion Encounter. * Medical History: * Medications: T aking busPIRone HCl 5 MG Tablet 1 tab(s) orally 3 times a day , Taking Senna Lax 8.6 MG TABLET 2 TAB(S) ORALLY ONCE A DAY (AT BEDTIME) PRN , Notes to Pharmacist: *Please review and pick correct strength-formulation from [employer] options. If intended option is not shown, discontinue and re-order from Quick Search*, Taking raNITidine 150 MG CAPSULE 1 CAP(S) ORALLY 2 TIMES A DAY PRN , Notes to Pharmacist: *Please review and pick correct strength-formulation from [employer] options. If intended option is not shown, discontinue and re-order from Quick Search*, Taking Flonase Allergy Relief 50 MCG/ACT Suspension 1 spray(s) intranasally once a day , Taking Loratadine 10 MG Tablet 1 tab(s) orally once a day , Taking Naprosyn 500 MG Tablet 1 tab(s) orally 2 times a day prn with food , Taking Flexeril 10 MG TABLET 1 TAB(S) ORALLY 3 TIMES A DAY , Notes to Pharmacist: *Please review and pick correct strength-formulation from [employer] options. If intended option is not shown, discontinue and re-order from Quick Search* * Allergies: A spirin: vomiting. Objective: * Vitals: Assessment: Plan: * Treatment: * Images: Billing Information: * Visit Code: * Procedure Codes: * Electronic signature of Prov ider Migration on 03/19/2025 at 10:27 PM EST Sign off status: Pending * Provider: Date: 0 01/19/2025 Generated for Diana wheeler/Kathy/Cristina on: 05/19/2024 10:27 PM EST
--- OUTSIDE RECORDS SUMMARY | 2025-03-13 23:59 | XMS_ITS | Continuity of Care Document ---
Author Organization [facility] Address [address] [place] [address] [facility] Name Relationship Address Phone MARITZA ZAVALA Personal Relationship Unknown Unav ailable LEAR, CARLOS Personal Relationship Unknown Unav ailable NICHDWAYNE, MARITZA Personal Relationship Unknown [place] vailable NICHDWAYNE, UTE mother Unknown Unavailable MARITZA ZAVALA Personal Relationship Unknown Unav ailable PHINEX, CHASTITY child Unknown Unavailable MARITZA GALVEZ Personal Relationship Unknown [place] vailable LENNY, MARITZA Personal Relationship Unknown [place] vailable Care Team Providers Care Hardware Design Engineer Name Role Phone Jose Wilks MD Primary Care Physician Encounter [facility] Date(s): 02/11/25 - 03/13/25 [facility]/[address] [address]- Encounter Type: Triage Allergies, Adverse Reactions, Alerts Substance Criticality Severity Reaction Reaction Severity Status amoxicillin Active penicillin Amoxycillin allergy Active aspirin Active Immunizations Given and Recorded Vaccine Date Status Refusal Reason SARS-CoV-2(COVID-19)mRNA-LNP vac([id number]) 03/09/23 Recorded influenza virus vaccine, inactivated 02/17/23 Jorge rded influenza virus vaccine, inactivated 04/08/22 Jorge rded influenza virus vaccine, inactivated 07/16/17 Jorge rded tetanus-diphtheria toxoids (Td) 12/30/15 Recorded Medications Albuterol (Eqv-ProAir HFA) 90 mcg/inh inhalation aerosol 2 puffs = 180 mcg, Inhalation, Every 6 hours, PRN Wheezing/Shortness of Breath, # 8.5 Gm, 11 Refills, Maintenance, 12/15/23 12:12:00 PM EDT, Inhaler, [facility], Partial fill upon patient request if the prescription is for a schedule II opioid drug., 2 puffs Inhalation Every 6 hour s,PRN:Wheezing/Shortness of Breath, 155, cm, 12/15/23 9:50:00 EDT, Height, 112.4, kg, 08/27/23 1:03:00 EDT, Dry Weight Start Date: 12/15/23 Status: Ordered Medication Dispense Status: Completed Quantity: 8.5 Unit: g Total Allowed Fills: 12 Fills Dispensed: 0 Alvesco 160 mcg/inh inhalation aerosol 1 puffs = 160 mcg, Inhalation, 2 times a day, rinse mouth and throat after use for asthma control, # 6.1 Gm, 11 Refills, Maintenance, 12/15/23 12:12:00 PM EDT, Aerosol, [facility], Partial fill upon patient request if the prescription is for a schedule II opioid drug., 155, cm, 12/15/23 9:50:00 EDT, Height, 112.4, kg, 08/27/23 1:03:00 EDT, Dry Weight Start Date: 12/15/23 Status: Ordered Medication Dispense Status: Completed Quantity: 6.1 Unit: g Total Allowed Fills: 12 Fills Dispensed: 0 atorvastatin 40 mg oral tablet 1 tablet = 40 mg, By Mouth, Daily, for cholesterol, # 90 tablet, 1 Refills, Maintenance, 02/08/25 4:31:00 PM EDT, Tablet, [facility]-, Partial fill upon patient request if the prescription is for a schedule II opioid drug., 155, cm, 12/05/24 9:14:00 EDT, Height, 115, kg, 259:14:00 EDT, Dry Weight Start Date: 02/08/25 Status: Ordered Medication Dispense Status: Completed Quantity: 90.0 Unit: tablet Total Allowed Fills: 2 Fills Dispensed: 0 Caplyta 42 mg oral capsule 1 capsule = 42 mg, By Mouth, Daily at bedtime, 0 Refills, Maintenance, 10/10/24 9:19:00 AM EDT, Partial fill upon patient request if the prescription is for a schedule II opioid drug. Start Date: 10/10/24 Status: Ordered Medication Dispense Status: Completed Total Allowed Fills: 1 Fills Dispensed: 0 cloNIDine 0.1 mg oral tablet 0.1 mg, 1, tablet, By Mouth, 2 times a day, # 180 tablet, Refills 1, Tot. Refills 1, Maintenance, 12/15/23 12:13:00 PM EDT, Route to Pharmacy Electronically, [facility], Partial fill upon patient request if the prescription is for a schedule II opioid drug., 155, cm, 12/15/23 9:50:00 EDT, Height, 112.4, kg, 08/27/23 1:03:00 EDT, Dry Weight Start Date: 12/15/23 Status: Ordered Medication Dispense Status: Completed Quantity: 180.0 Unit: tablet Total Allowed Fills: 2 Fills Dispensed: 0 diclofenac potassium 50 mg oral tablet 1 tablet = 50 mg, By Mouth, 3 times a day, PRN for pain, with food for pain, # 180 tablet, 0 Refills, Maintenance, 01/14/25 11:47:00 AM EDT, Tablet, [facility]-, Partial fill upon patient request if the prescription is for a schedule II opioid drug., 155, cm, 12/05/24 9:14:00 EDT,Height, 115, kg, 12/05/24 9:14:00 EDT, Dry Weight Start Date: 01/14/25 Status: Ordered Medication Dispense Status: Completed Quantity: 180.0 Unit: tablet Total Allowed Fills: 1 Fills Dispensed: 0 docusate-senna 50 mg-187 mg oral tablet 2 tablet, By Mouth, Daily at bedtime, # 30 tablet, 2 Refills, Maintenance, 10/06/24 10:35:00 PM EDT,Tablet, [id number], Partial fill upon patient request if the prescription is for aschedule II opioid drug., 2 tablet By Mouth Daily at bedtime, 155, cm, 10/06/24 18:07:00 EDT, Height, 108.9, kg, 10/06/24 18:07:00 EDT, Dry Weight Start Date: 10/06/24 Status: Ordered Medication Dispense Status: Completed Quantity: 30.0 Unit: tablet Total Allowed Fills: 3 Fills Dispensed: 0 escitalopram 20 mg oral tablet 1 tablet = 20 mg, By Mouth, Daily, 0 Refills, Maintenance, 10/10/24 9:21:00 AM EDT, Partial fill uponpatient request if the prescription is for a schedule II opioid drug. Start Date: 10/10/24 Status: Ordered Medication Dispense Status: Completed Total Allowed Fills: 1 Fills Dispensed: 0 Golytely - oral powder for reconstitution See Instructions, Follow instructions from GI, # 4,000 mL, 0 Refills, Maintenance, 09/13/23 9:12:00 AM EDT, Partial fill upon patient request if the prescription is for a schedule II opioid drug. Start Date: 09/13/23 Status: Ordered Medication Dispense Status: Completed Quantity: 4000.0 Unit: mL Total Allowed Fills: 1 Fills Dispensed: 0 Indications: Unspecified viral hepatitis C without hepatic coma; Hemorrhage of anus and rectum; Morbid (severe) obesity due to excess calories; Gastro- esophageal reflux disease without esophagitis; Other constipation; Vomiting, unspecified; lactulose 10 gm/15 ml oral syrup 15 mL = 10 Gm, By Mouth, 2 times a day, for constipation, # 480 mL, 6 Refills, Maintenance, 01/14/25 11:46:00 AM EDT, Syrup, [facility]-, Partial fill upon patient request if the prescription is for a schedule II opioid drug., 15 mL By Mouth 2 times a day,Instr:for constipation, 155, cm, 12/05/24 9:14:00 EDT, Height, 115, kg, 12/05/24 9:14:00 EDT, Dry Weight Start Date: 01/14/25 Status: Ordered Medication Dispense Status: Completed Quantity: 480.0 Unit: mL Total Allowed Fills: 7 Fills Dispensed: 0 Methadone = 150 mg, 0 Refills, Maintenance, 10/10/24 9:24:00 AM EDT, Partial fill upon patient request if the prescription is for a schedule II opioid drug. Start Date: 10/10/24 Status: Ordered Medication Dispense Status: Completed Total Allowed Fills: 1 Fills Dispensed: 0 Nebulizer with mask and tubing Nebulizer with mask and tubing, See Instructions, # 1 each, Refills 0, Tot. Refills 0, Maintenance,DX: Asthma for use with Albuterol solution, 06/21/24 10:08:00 AM EST, Supply, 155, cm, 06/21/24 9:33:00 EST, Height, 124.1, kg, 05/17/24 14:56:00 EST, Dry Weight Start Date: 06/21/24 Status: Ordered Medication Dispense Status: Completed Quantity: 1.0 Unit: each Total Allowed Fills: 1 Fills Dispensed: 0 Nicorette 4 mg oral transmucosal gum 1 each = 4 mg, Chew, Every 2 hours, PRN for smoking cessation, to quit smoking, # 120 each, 2 Refills, Maintenance, 05/10/24 9:19:00 AM EST, Gum, [id number], Partial fill upon patient request if the prescription is for a schedule II opioid drug., 155, cm, 05/10/24 8:31:00 EST, Height, 112.4, kg, 08/27/23 1:03:00 EDT, Dry Weight Start Date: 05/10/24 Status: Ordered Medication Dispense Status: Completed Quantity: 120.0 Unit: each Total Allowed Fills: 3 Fills Dispensed: 0 nicotine 4 mg oral transmucosal lozenge See Instructions, 1 lozenge every 2 hours as needed to quit smoking as directed on package labelingdo not use with nicorette gum, # 72 lozenge, 2 Refills, Maintenance, 05/10/24 9:20:00 AM EST, [id number], Partial fill upon patient request if the prescription is for a scheduleII opioid drug., 1 lozenge every 2 hours as needed to quit smoking; as directed on package labeling; do not use with nicorette gum, 155, cm, 05/10/24 8:31:00 EST, Height, 112.4, kg, 08/27/23 1:03:00 EDT, Dry Weight Start Date: 05/10/24 Status: Ordered Medication Dispense Status: Completed Quantity: 72.0 Unit: lozenge Total Allowed Fills: 3 Fills Dispensed: 0 Nicotine 7 mg/24 hour patch APPLY 1 PATCH TOPICALLY TO THE SKIN IN THE MORNING DO NOT SMOKE WHILE USING PATCH Start Date: 12/15/23 Status: Ordered Medication Dispense Status: Completed Total Allowed Fills: 1 Fills Dispensed: 0 omeprazole 20 mg oral delayed release tablet 1 tablet = 20 mg, By Mouth, Daily, # 90 tablet, 1 Refills, Maintenance, 02/11/25 11:12:00 AM EDT, CRTablet, [facility]-, Partial fill upon patient request if the prescription is for a schedule II opioid drug., 155, cm, 12/05/24 9:14:00 EDT, Height, 115, kg, 12/05/24 9:14:00 EDT,Dry Weight Start Date: 02/11/25 Status: Ordered Medication Dispense Status: Completed Quantity: 90.0 Unit: tablet Total Allowed Fills: 2 Fills Dispensed: 0 pantoprazole 40 mg oral delayed release tablet 1 tablet = 40 mg, By Mouth, Daily, for acid, # 90 tablet, 1 Refills, Maintenance, 02/23/24 2:46:00 PM EDT, EC Tablet, 155, cm, 02/23/24 13:57:00 EDT, Height, 112.4, kg, 08/27/23 1:03:00 EDT, Dry Weight Start Date: 02/23/24 Status: Ordered Medication Dispense Status: Completed Quantity: 90.0 Unit: tablet Total Allowed Fills: 2 Fills Dispensed: 0 polyethylene glycol 3350 oral powder for reconstitution = 17 Gm, By Mouth, 2 times a day, dissolve in 4 to 8 oz of beverage, # 238 Gm, 0 Refills, Maintenance, 10/06/24 10:35:00 PM EDT, REC Powder, [facility] #[id number], Partial fill upon patient request if the prescription is for a schedule II opioid drug., 17 Gm By Mouth 2 times a day,x7 days,Instr:dissolve in 4 to 8 oz of beverage, 155, cm, 10/06/24 18:07:00 EDT, Height, 108.9, kg, 10/06/24 18:0 7:00 EDT, Dry Weight Start Date: 10/06/24 Stop Date: 10/13/24 Status: Ordered Medication Dispense Status: Completed Quantity: 238.0 Unit: g Total Allowed Fills: 1 Fills Dispensed: 0 pramipexole 0.5 mg oral tablet 1 tablet = 0.5 mg, By Mouth, 3 times a day, 0 Refills, Maintenance, 10/10/24 9:23:00 AM EDT, Partial fill upon patient request if the prescription is for a schedule II opioid drug. Start Date: 10/10/24 Status: Ordered Medication Dispense Status: Completed Total Allowed Fills: 1 Fills Dispensed: 0 prazosin 2 mg oral capsule 1 capsule = 2 mg, By Mouth, Daily at bedtime, 0 Refills, Maintenance, 10/10/24 9:22:00 AM EDT, Partial fill upon patient request if the prescription is for a schedule II opioid drug. Start Date: 10/10/24 Status: Ordered Medication Dispense Status: Completed Total Allowed Fills: 1 Fills Dispensed: 0 QUEtiapine 200 mg oral tablet 200 mg, 1, tablet, By Mouth, Daily at bedtime, Refills 0, Maintenance, 10/10/24 9:20:00 AM EDT, Partial fill upon patient request if the prescription is for a schedule II opioid drug. Start Date: 10/10/24 Status: Ordered Medication Dispense Status: Completed Total Allowed Fills: 1 Fills Dispensed: 0 QUEtiapine 25 mg oral tablet 25 mg, 1, tablet, By Mouth, 3 times a day, PRN, Refills 0, Maintenance, Anxiety, 10/10/24 9:20:00 AM EDT, Partial fill upon patient request if the prescription is for a schedule II opioid drug. Start Date: 10/10/24 Status: Ordered Medication Dispense Status: Completed Total Allowed Fills: 1 Fills Dispensed: 0 Senna 8.6 mg oral tablet 17.2 mg, 2, tablet, By Mouth, Daily at bedtime, PRN, with plenty of water for constipation, # 100 tablet, Refills 1, Tot. Refills 1, Maintenance, for constipation, 02/27/25 1:51:00 PM EDT, Route to Pharmacy Electronically, [facility] Tablet, Partial fill upon patient request ifthe prescription is for a schedule II opioid drug., 155, cm, 02/27/25 12:15:00 EDT, Height, 123.2, kg, 02/27/25 12:15:00 EDT, Dry Weight Start Date: 02/27/25 Status: Ordered Medication Dispense Status: Completed Quantity: 100.0 Unit: tablet Total Allowed Fills: 2 Fills Dispensed: 0 Spacer for use with inhaler Spacer for use with inhaler, See Instructions, # 1 each, Refills 0, Tot. Refills 0, Maintenance, Dx: asthma for use with inhaler, 06/21/24 10:08:00 AM EST, Supply, 155, cm, 06/21/24 9:33:00 EST, Height, 124.1, kg, 05/17/24 14:56:00 EST, Dry Weight Start Date: 06/21/24 Status: Ordered Medication Dispense Status: Completed Quantity: 1.0 Unit: each Total Allowed Fills: 1 Fills Dispensed: 0 Zepbound 2.5 mg/0.5 mL subcutaneous solution = 2.5 mg, Subcutaneous Injection, Every week, rotate injection sites for weight loss Not appropriate for Phentermine, # 2 mL, 5 Refills, Maintenance, 03/06/25 12:30:00 PM EDT, Solution, [facility]-, Partial fill upon patient request if the prescription is for a schedule II opioid drug. PA approved, 155, cm, 02/27/25 12:15:00 EDT, Height, 123.2, kg, 02/27/25 12:15:00 EDT, Dry Weight Start Date: 03/06/25 Status: Ordered Medication Dispense Status: Completed Quantity: 2.0 Unit: mL Total Allowed Fills: 6 Fills Dispensed: 0 Indications: Sleep apnea, unspecified; Morbid (severe) obesity due to excess calories; Zithromax 250 mg oral tablet 1 pack/packet, By Mouth, Once, for bronchitis, # 6 tablet, 0 Refills, Soft Stop, 12/05/24 10:01:00 AM EDT, Tablet, [facility], Partial fill upon patient request if the prescription is for a schedule II opioid drug., 155, cm, 12/05/24 9:14:00 EDT, Height, 115, kg, 12/05/24 9:14:00 EDT, Dry Weight Start Date: 12/05/24 Status: Ordered Medication Dispense Status: Completed Quantity: 6.0 Unit: tablet Total Allowed Fills: 1 Fills Dispensed: 0 Problem List Condition Confirmation Course Effective Dates Status H ealth Status Informant Cigarette smoker Confirmed Active Constipation Confirmed Active GERD (gastroesophageal reflux disease) Confirmed Active History of CVA in adulthood Confirmed Active History of substance abuse Confirmed Active Hyperlipidemia Confirmed Active Low back pain Confirmed Active Moderate persistent asthma Confirmed Active MDD (major depressive disorder), recurrent episode, moderate Confirmed Active Severe obesity Confirmed Active Urinary urgency Confirmed Active Low vitamin D level Confirmed Active Social History Social History Type Response Tobacco Use: 4 or less cigar ettes(less than 1/4 pack)/day in last 30 days. Sex Sex Representation Female (finding) Patient Care team information Care Team Personnel Name: Jose Wilks MD Position: S Physician - Primary Care Member Role: PCP Address: [address] [place] [address] Telecom: Care Team Related Persons Name: CARLOS LOCKHART Name: UTE GALVEZ Name: PHINEX, CHASTITY Insurance Providers Guarantor name: MARITZA GALVEZ Health Plan Information #: 1 Payer: DxNA [facility] [employer] Payer Identifier: MANNY Member Number: [id number] Group Number: [id number] Subscriber Identifier: MANNY Relationship to Subscriber: self Coverage Type: Medicaid (Managed Care) Coverage Verification Date: NA Telecom: NA Address:
[2025-03-19 20:19] VITALS: BP 142/90; PULSE 88; RESP 18; TEMP 36.9; O2SAT 92; BMI 48.7
[2025-03-19 20:40] LABS: MANUAL DIFF FLAG NO
[2025-03-19 20:41] LABS: Hematocrit 42.6 % (37.0-47.0); Hemoglobin 13.7 g/dl (12.0-16.0); Imm Gran Abs Auto 0.03 X10*3/uL (0.00-0.03); Imm Gran Pct Auto 0.4 % (0.0-0.4); Lymphocytes Absolute Auto 2.4 X10*3/uL (1.2-4.9); Mean Corpuscular HGB Conc 32.2 g/dl (31.0-35.0); Mean Corpuscular Hemoglobin 30.1 pg (27.0-33.0); Mean Corpuscular Volume 93.6 fL (80.0-98.0); NRBC Abs Auto 0.000 X10*3/uL (0.0-0.012); NRBC Pct Auto 0.0 /100WBC (0.0-0.2); Platelet Count 178 X10*3/uL (160-400); Red Blood Count 4.55 X10*6/uL (4.20-5.50); White Blood Count 7.2 X10*3/uL (4.8-10.8)
[2025-03-19 20:55] LABS: Alanine Aminotransferase 41 U/L (0-31); Albumin Level 4.3 g/dL (3.5-5.0); Alkaline Phosphatase 128 U/L (39-117); Anion Gap 16 (12-20); Aspartate Amino Transferase 51 U/L (5-31); Blood Urea Nitrogen 11 mg/dL (9-16); Calcium 9.6 mg/dL (8.4-10.2); Carbon Dioxide 26 mmol/L (22-29); Chloride 104 mmol/L (96-108); Creatinine Clr Calc Pharmacy 87.2; Estimated Glomerular Filt Rate > 60; Lipase 21 U/L (8-78); Potassium 4.6 mmol/L (3.3-5.1); Sodium 141 mmol/L (135-145); Total Protein 8.6 g/dL (6.5-8.0)
[2025-03-19 21:31] LABS: Appearance Urine Cloudy; Glucose Urine UA Negative (Negative); PH 7.5 (5.0-9.0); Specific Gravity - Urine 1.020 (1.005-1.025); UMIC TRIGGER UACC YES
[2025-03-19 22:19] VITALS: BP 149/95; PULSE 87; TEMP 36.4; O2SAT 94
--- OUTSIDE RECORDS SUMMARY | 2025-03-19 22:27 | XMS_ITS | Clinical Summary ---
Author Organization [facility] Address [address] [place] [address] Care Team Providers Care Groundskeeper Name Role Phone PasserDary Primary Care Provider [phone] Allergies Active Allergy Reactions Criticality Noted Date [...] last used crack 5/1. - [facility] Assessment & Plan (09/17/2024 9:41 AM EDT): - last used crack 5/1. - [facility] - [facility] can return [facility] facility. History of DVT (deep [...] Health [facility] ual Screening 05/09/2024 COVID-19 Vaccine (1 - 2024-2 6 season) 2025 Influenza Vaccine (#1) 2025 Pneumococcal Vaccine: Pediat yong (0-5 Years) and At-Risk Patients (6-50 Years) Aged Out No longer eligible b ased on patient's age to complete this topic Insurance [facility] MEDICAID Care Teams Groundskeeper Relationship Specialty Start Date End Date Dary Maradiaga [address] [place] [id number] PCP - General 09/10/24
--- OUTSIDE RECORDS SUMMARY | 2025-03-19 22:28 | XMS_ITS | Patient Health Record ---
Author Organization [facility] Address [address] [place] [address] Care Team Providers Care Articulation Officer Name Role Phone Nancy Renner Primary Care Provider Addis Nash Unavailable Migration, Provider Unavailable Unavailable Allergies Allergen (clinical drug ingredient) Drug/Non Drug Allergy documented on EMR Reaction Allergy Type Onset Date Status aspirin Aspirin vomiting Drug Allergy Active Reason For Referral No Information Medications Medication SIG (Take, Route, Frequency, Duration) Notes Start Date End Date Status raNITidine 150 MG 1 CAP(S) ORALLY 2 TIMES A DAY PRN *Please review and pick correct strength-formulati on from [employer] options. If intended option is not shown, discontinue and re-order from Quick Search* 04/26/2013 05/09/2024 Active Flonase Allergy Relief 50 MCG/ACT 1 spray(s) intranasally once a day 05/30/2013 05/09/2024 Active busPIRone HCl 5 MG 1 tab(s) orally 3 times a day 05/30/2013 05/09/2024 Active Senna Lax 8.6 MG 2 TAB(S) ORALLY ONCE A DAY (AT BEDTIME) PRN *Please review and pick correct strength-formulati on from [employer] options. If intended option is not shown, discontinue and re-order from Quick Search* 05/09/2024 05/09/2024 Active Flexeril 10 MG 1 TAB(S) [...] with food for 30 day(s) 05/08/2013 Active Immunizations Vaccine Route Administration Date Status [...] to quit Patient counseled on the nabila manzos of tobacco use and advised to quit: 07/28/2013 GK Problems Problem Type SNOMED Code ICD Code Onset Dates Problem Status W/U Status Risk Notes Problem Polysubstance dependence (16791829) Polysubstance dependence (304.90) Active confirmed Problem Otitis media with effusion (06145012) Otitis media with effusion (381.4) Active confirmed Problem Constipation (69778750) Constipation not elsewhere classified (564.09) Active confirmed Problem Irritable bowel syndrome (14113440) IBS [Irritable bowel syndrome] (564.1) Active confirmed Problem Back pain (748316134) Back pain (724.5) Active confirmed Problem Tobacco use (201910934) Tobacco use disorder (305.1) Active confirmed Problem Problem behavior (714203438) MENTAL/BEHAVIOR PROB NOS (V40.9) Active confirmed Problem Gastroesophageal reflux disease (578898539) GERD (530.81) Active confirmed Encounters Encounter Location Date Provider Diagnosis [facility] [address] [place] [address] 01/19/2025 Provider [facility] [address] [place], [place] [id number] 11/21/2024 Addis Nash Plan Of Treatment Pending [...] End Date [place] Medicaid Standard [address] [place] [address] [id number] Katina Alicia Self - patient is the insured Medical (General) History Medical History History ICD Code asthma nerve pain Mirena inserted 01/19 preeclampsia/ full term L# and L$ back slipped / bulging disc partially deaf L ear : last 5 yrs. Acid Reflux/hx ulcer in stomach 11/18 Hx: Hx of CHANG III (prior to 2006-233.1) Anxiety Disorder NOS Buspar 5mg 1-2 tabs PO prn BID, MDD: amitriptyline 25mg @ hs 2008 prior PCP Surgical History Surgery Date(Month/Year) tubes clamped 2006
--- OUTSIDE RECORDS SUMMARY | 2025-03-19 22:28 | XMS_ITS | Clinical Summary ---
Author Organization [facility] Address [address] [place] [address] Care Team Providers Care Radio Engineering Teacher Name Role Phone Unavailable Primary Care Provider [...] mg by mouth Once per day. At [facility] in [place] Active famotidine (Pepcid) 20 MG tablet Take [...] been using heroin and crack. Went to [facility]. No procedures. Taking atorvastatin and clopidogrel. No residual deficits. GERD (gastroesophageal reflux disease) Chronic pain of right knee 10/05/2023 Overview (10/05/2023): History of needing steroid injections Chronic left shoulder pain 10/05/2023 Chronic midline low back pain without sciatica 0 10/05/2023 Overview (10/05/2023): History of surgery History of substance abuse ([facility]) 10/05/2023 Overview (10/05/2023): Had used heroin, crack. Living in [facility] now (10/05/23). Mild intermittent asthma without [...] patient's age to complete this topic [place] [address] [address] C3 STANDARD
--- NOTE | 2025-03-19 23:45 | ED.ABDPAIN ---
HPI - Abdominal Pain General Chief Complaint: Abdominal Pain Stated Complaint: Stomach Pain Time Seen by Provider: 03/19/25 22:56 Source: patient Mode of arrival: ambulatory Limitations: no limitations History of Present Illness ED Provider: Dr. Hansa Myers HPI narrative: 44-year-old female with a history of sleep apnea, asthma, continued tobacco use, GERD presenting with upper abdominal bloating and pain ongoing for months, worsening over the last several days. Today has been unable to tolerate anything by mouth due to nausea. Vomited several times today which she describes as nonbilious and nonbloody. No bowel movement for the last 14 days. Decided to come to the hospital tonight because of the vomiting. Has been trying to take water and has been mostly succeeding at that. No reported fever. No known sick contacts. No vaginal bleeding or discharge. Related Data Home Medications ?Medication ?Instructions ?Recorded ?Confirmed atorvastatin 40 mg tablet 40 mg PO DAILY 05/26/24 10/12/24 gabapentin 800 mg tablet 800 mg PO TID 05/26/24 10/12/24 pantoprazole 40 mg tablet,delayed 40 mg PO DAILY@0630 05/26/24 10/12/24 release albuterol sulfate 90 mcg/actuation 2 puff inhalation QID PRN 10/12/24 10/12/24 aerosol inhaler (Ventolin HFA) Shortness Of Breath Or Wheezing diclofenac sodium 1 % topical gel 2 g topical QID PRN Pain 10/12/24 10/12/24 diclofenac sodium 50 mg 50 mg PO TID PRN Pain 10/12/24 10/12/24 tablet,delayed release furosemide 20 mg tablet 20 mg PO DAILY swelling 10/12/24 10/12/24 pramipexole 0.5 mg tablet 0.5 mg PO DAILY PRN Restless Leg(S) 10/12/24 10/12/24 quetiapine 200 mg tablet 200 mg PO BEDTIME 10/12/24 10/12/24 quetiapine 25 mg tablet 25 mg PO TID PRN Agitation 10/12/24 10/12/24 methadone 10 mg/mL oral 170 mg PO DAILY 10/13/24 10/13/24 concentrate (Methadone Intensol) Previous Rx's ?Medication ?Instructions ?Recorded lactulose 10 gram/15 mL oral 20 g (30 mL) PO BID #3,000 mL 10/13/24 solution clonazepam 0.5 mg tablet (Klonopin) 0.5 mg PO BID #6 tabs 12/31/24 fluticasone propionate 115 2 puff inhalation Q12H #12 grams 01/02/25 mcg-salmeterol 21 mcg/actuation HFA inhaler (Advair HFA) quetiapine 400 mg tablet (Seroquel) 400 mg PO BID 5 days #10 tabs 01/18/25 lactulose 10 gram/15 mL oral 20 g (30 mL) PO TID continued 03/20/25 solution constipation #237 mL metoclopramide HCl 5 mg tablet 5 mg PO DAILY #20 tabs 03/20/25 (Reglan) Allergies Allergy/AdvReac Type Severity Reaction Status Date / Time aspirin (ASA) Allergy Intermediate Hives Verified 03/19/25 20:22 amoxicillin Allergy Hives Verified 03/19/25 20:22 Penicillins Allergy Dizziness Verified 03/19/25 20:22 Review of Systems Review of Systems As per HPI, full review of systems performed and negative but for the above mentioned pertinent positives and negatives. [facility] Past Medical History Medical History Asthma Obesity hypoventilation syndrome THOMAS (obstructive sleep apnea) CVA (cerebral vascular accident) GERD (gastroesophageal reflux disease) Social History Social History Household Members: None Housing: Homeless Do you presently have visiting nurse or other home services: No Alcohol intake: former Comment: 1:1 sitter bedside for SI Patient Tobacco Use Status: Current everyday Tobacco user Tobacco use type: Cigarette Cigarettes Per Day: 3 Years Smoked: 32 e-Cigarette/Vaping Use: Currently Using Second Hand Smoke Exposure: Yes Substance Use Type: Opiates service: No Physical Exam ED Exam Exam: GENERAL: Ill-Appearing, appears uncomfortable. SKIN: Normal skin color for ethnicity, warm, dry, no rashes noted. HEENT: Normocephalic, atraumatic, no stridor, dry mucous membranes, dentition intact, EOMI, PERRLA. NECK: Soft, supple, full ROM, midline structures nontender, no step-offs, no deformities, no lymphadenopathy. CHEST: Heart regular rhythm, no murmurs, symmetric chest rise and fall. PULMONARY: Clear to auscultation bilaterally, diminished at the bases, no labored breathing, no wheezes/rhales/rhonchi. ABDOMINAL: Soft, nondistended, diffusely tender without rebound or guarding, quiet bowel sounds in all quadrants. : Deferred. MUSCULOSKELETAL: Normal tone, full range of motion, no deformities, no peripheral edema. NEURO: Alert and oriented x3, CN II through XII intact, equal strength and sensation bilateral upper and lower extremities, no focal neurologic deficits. PSYCHIATRIC: Flat affect, fluid speech, good eye contact and appropriate demeanor. Vital Signs: Vital Signs - 24 hr 03/19/25 20:19 03/19/25 22:19 03/20/25 00:56 Temperature 98.4 F 97.5 F 97.9 F Pulse Rate 88 87 95 Respiratory Rate 18 16 Blood Pressure 142/90 H 149/95 H 118/75 Pulse Oximetry 92 94 94 Oxygen Delivery Method Room Air Room Air Room Air 03/20/25 01:15 03/20/25 02:03 Temperature 98.0 F 98.0 F Pulse Rate 89 92 Respiratory Rate 14 Blood Pressure 105/63 105/70 Pulse Oximetry 93 95 Oxygen Delivery Method Room Air Room Air BMI result Body Mass Index 48.7 Medical Decision Making Medical Decision Making MDM Narrative: Patient presents today with a chief complaint of vomiting. Differential diagnosis includes surgical emergency such as obstruction or enteritis, as well as hyperglycemia, acidosis, food or drug ingestion, pancreatitis, CVA, allergic reaction such as anaphylaxis, cannabis hyperemesis syndrome or cyclic vomiting syndrome, among many others. Patient is not showing signs of acute dehydration or hemodynamic instability. They are having associated abdominal pain. Broad-based work-up was initiated based on above history and physical exam. Workup does not show evidence of obstruction. Abdominal exam is benign. Blood work is reassuring. Suspect gastroparesis. Patient is extremely anxious and dealing with some stress at home which is contributing to her abdominal discomfort. Given the chronicity of her symptoms, I feel that she would be better served as a workup from GI with EGD and colonoscopy. Using shared decision making, plan for discharge home to follow-up with primary care and/or specialist. Patient understands and agrees with plan for discharge. Discharged home in stable condition. Differential Diagnosis Differential Diagnoses: The differential diagnosis associated with the presentation includes (As above) Admission/Observation Consideration of admission/observation: Escalation of care including admission/observation considered Lab Data MDM Lab Attestation statement: I reviewed the patient's lab results. 03/19/25 20:35 03/19/25 20:35 Labs: Lab Results 03/19/25 03/19/25 Range/Units 20:35 21:24 WBC 7.2 (4.8-10.8) X10*3/uL RBC 4.55 (4.20-5.50) X10*6/uL Hgb 13.7 (12.0-16.0) g/dl Hct 42.6 (37.0-47.0) % MCV 93.6 (80.0-98.0) fL MCH 30.1 (27.0-33.0) pg MCHC 32.2 (31.0-35.0) g/dl RDW 12.2 (11.0-16.0) % Plt Count 178 (160-400) X10*3/uL MPV 9.7 (9.4-12.3) fL Immature Gran % (Auto) 0.4 (0.0-0.4) % Neut % (Auto) 59.4 (45-73) % Lymph % (Auto) 32.9 (20-40) % [place] % (Auto) 6.1 (2-11) % Eos % (Auto) 0.8 (0-4) % Baso % (Auto) 0.4 (0-2) % Lymph # (Auto) 2.4 (1.2-4.9) X10*3/uL [place] # (Auto) 0.4 (0.1-1.2) X10*3/uL Eos # (Auto) 0.1 (0.0-0.4) X10*3/uL Baso # (Auto) 0.0 (0.0-0.2) X10*3/uL Abs Immat Gran (auto) 0.03 (0.00-0.03) X10*3/uL Absolute Neuts (auto) 4.3 (2.0-8.3) x10*3/uL Absolute Nucleated RBC 0.000 (0.0-0.012) X10*3/uL Nucleated RBC % (auto) 0.0 (0.0-0.2) /100WBC Sodium 141 (135-145) mmol/L Potassium 4.6 (3.3-5.1) mmol/L Chloride 104 (96-108) mmol/L Carbon Dioxide 26 (22-29) mmol/L Anion Gap 16 (12-20) BUN 11 (9-16) mg/dL Creatinine 0.97 (0.5-1.4) mg/dL Estim Creat Clear Calc 87.2 Estimated GFR > 60 Random Glucose 90 (60-115) mg/dL Calcium 9.6 D (8.4-10.2) mg/dL Total Bilirubin 0.3 (0.0-1.0) mg/dL Direct Bilirubin 0.1 (0.0-0.5) mg/dL AST 51 H (5-31) U/L ALT 41 H (0-31) U/L Alkaline Phosphatase 128 H (39-117) U/L Total Protein 8.6 H (6.5-8.0) g/dL Albumin 4.3 (3.5-5.0) g/dL Lipase 21 (8-78) U/L Urine Color Dark Yellow Urine Appearance Cloudy Urine pH 7.5 (5.0-9.0) Ur Specific [place] 1.020 (1.005-1.025) Urine Protein Negative (Neg-Trace) mg/dL Urine Glucose (UA) Negative (Negative) mg/dL Urine Ketones Trace (Negative) mg/dL Urine Blood Negative (Negative) Urine Nitrite Negative (Negative) Ur Leukocyte Esterase Trace H (Negative) Urine RBC 0-2 (0-2) /HPF Urine WBC 0-5 (0-5) /HPF Ur Squamous Epith Cells 3-5 (0-2) /HPF Urine Bacteria 1+ (None Seen) Hyaline Casts 0-2 (0-2) /LPF External Record Review External record reviewed: Inpatient record and Outpatient record Prescription Management I considered prescription management with: Other (Antiemetics) Chronic Conditions Patient?s care impacted by: Other (GERD, CVA) Social Determinants Patient?s care significantly limited by Social Determinants of Health including: Other Social Determinant of Health Medications Administered Discontinued Medications Generic Name Dose Route Start Last Admin Trade Name Freq PRN Reason Stop Dose Admin Lactulose 30 gm 03/20/25 00:46 03/20/25 00:52 Lactulose 20 Gm/30 Ml Solution PO 03/20/25 00:47 30 gm ONCE ONE Administration Metoclopramide HCl 10 mg 03/20/25 00:46 03/20/25 00:56 Metoclopramide Hcl 10 Mg/2 Ml Vial IM 03/20/25 00:47 10 mg ONCE ONE Administration Discharge Plan Discharge Clinical Impression: Gastroparesis, Nausea and vomiting Patient Disposition: Home, Self-Care Instructions: Gastroparesis (ED) Additional Instructions: DIAGNOSIS & TREATMENT: You were seen in the Emergency Department for your abdominal pain. We performed laboratory work which did not reveal any acute abnormalities that would explain your symptoms. FURTHER CARE: We have not found any emergent physical exam or lab abnormalities that would require admission to the hospital today. Many people who come to the ER with abdominal pain do not leave with a specific diagnosis at the end of their visit. In the Emergency Department we try to make sure that there is no emergent problem that needs surgery or antibiotics right now. This does not mean that your evaluation is complete--please be sure to follow up with your regular doctor as additional testing as an outpatient may be indicated Please be certain to drink plenty of fluids over the next several. You should advance your diet as tolerated. You may wish to start with the BRAT diet (bananas, rice, applesauce, toast). WHEN YOU SHOULD BE SEEN NEXT: Please follow-up with your primary care provider within the next 2-3 days for reevaluation of your symptoms. WHEN TO RETURN TO THE ED: Monitor your symptoms closely and return to the emergency department immediately for any new/worsening symptoms, worsening abdominal pain, pain which changes location (particularly if it moved to the right lower quadrant), nausea, vomiting, blood in your stool, black/tarry stools, chest pain, shortness of breath, fevers, chills, night sweats, you are unable to arrange follow-up care, or any other concerning symptoms. Prescriptions: New metoclopramide HCl [Reglan] 5 mg tablet 5 mg PO DAILY Qty: 20 0RF lactulose 10 gram/15 mL solution 20 g PO TID Qty: 237 0RF No Action quetiapine 25 mg tablet 25 mg PO TID PRN (Reason: Agitation) quetiapine 200 mg tablet 200 mg PO BEDTIME pramipexole 0.5 mg tablet 0.5 mg PO DAILY PRN (Reason: Restless Leg(S)) furosemide 20 mg tablet 20 mg PO DAILY diclofenac sodium 50 mg tablet,delayed release (DR/EC) 50 mg PO TID PRN (Reason: Pain) albuterol sulfate [Ventolin HFA] 90 mcg/actuation HFA aerosol inhaler 2 puff INHALATION QID PRN (Reason: Shortness Of Breath Or Wheezing) diclofenac sodium 1 % Gel 2 g TOPICAL QID PRN (Reason: Pain) Rx Instructions: apply to single elbow, wrist or hand; for hand includes palm/fingers/back of hand methadone [Methadone Intensol] 10 mg/mL Concentrate 170 mg PO DAILY lactulose 10 gram/15 mL Solution 20 g PO BID Qty: 3000 0RF quetiapine [Seroquel] 400 mg tablet 400 mg PO BID 5 Days Qty: 10 0RF atorvastatin 40 mg tablet 40 mg PO DAILY gabapentin 800 mg tablet 800 mg PO TID pantoprazole 40 mg tablet,delayed release (DR/EC) 40 mg PO DAILY@0630 clonazepam [Klonopin] 0.5 mg tablet 0.5 mg PO BID Qty: 6 0RF fluticasone propion-salmeterol [Advair HFA] 115-21 mcg/actuation HFA aerosol inhaler 2 puff inhalation Q12H Qty: 12 3RF Interventions: ED Discharge Assessment Last Done: 03/20/25 02:21 Discharge Date/Time: 03/20/25 02:30 Print Language: Tuval[place]
[2025-03-20 00:56] VITALS: BP 118/75; PULSE 95; RESP 16; TEMP 36.6; O2SAT 94
[2025-03-20 01:15] VITALS: BP 105/63; PULSE 89; RESP 14; TEMP 36.7; O2SAT 93
[2025-03-20 02:03] VITALS: BP 105/70; PULSE 92; TEMP 36.7; O2SAT 95
[2025-03-20 02:21] VITALS: BP 105/70; PULSE 92; RESP 16; TEMP 36.7; O2SAT 95
== END 2025-03-20 02:30 | disposition home or self-care (01) ==
PROVIDERS: Emergency Provider Emergency Medicine; PCP Family Medicine
DX: K31.84 Gastroparesis (principal); R11.2 Nausea with vomiting, unspecified; R10.9 Unspecified abdominal pain; K21.9 Gastro-esophageal reflux disease without esophagitis; R14.0 Abdominal distension (gaseous); J45.909 Unspecified asthma, uncomplicated
CPT/HCPCS: 36415; 80048; 80076; 81001; 83690; 85025; 96372; 99284; J2765